=== PATIENT | male | born 1935 | race Caucasian/White ===

== ENCOUNTER 2020-10-17 08:04 | Day surgery (SDC) | payer MEDICARE, MEDICAID, SELFPAY ==
[2020-10-17] VITALS (10 sets, daily range): BP systolic 129–211; BP diastolic 73–100; PULSE 56–69; RESP 18–22; TEMP 36.5–37; O2SAT 95–99; BMI 29.8
--- NOTE | 2020-10-17 08:15 | XR_ITS ---
WS: [id number] Portable AP upright chest, 10/17/2020 Clinical Data: food stuck in esophagus Comparison: None. Findings: No nodules, masses or effusions are seen. The heart is normal. The pulmonary vascularity is not increased. No pneumonia or pneumothorax is seen. There is pleural reaction at the right costophr enic angle. The aortic arch and descending aorta show tortuosity. There is a calcification over the l eft greater tuberosity which may represent calcific bursitis and/or tendinitis. XR/XR chest 1V portable [id number] Impression: Atherosclerosis.
--- NOTE | 2020-10-17 08:17 | ED_ITS ---
Documented by User: HEIDI Lanza 10/17/20 13:53 HPI - General Adult General: Chief complaint: Airway/Esophagus Foreign Body Stated complaint: food stuck in throat Time Seen by Provider: 10/17/20 08:10 Source: patient Mode of arrival: ambulatory Limitations: no limitations History of Present Illness: HPI narrative: Pleasant 85-year-old male patient presents to the emergency department with food stuck in his esophagus. He reports that 4 AM this morning, ate hamburger and potatoes. He reports food stuck in the middle of his chest. He denies difficulty breathing, denies cough congestion. He reports did vomit small amount of spit. He reports similar episodes in the past with spontaneous resolution; did not seek medical attention. Primary care physician is Dr. Taylor. He denies fever chills cough congestion nausea or diarrhea upon exam. Onset (ago): hour(s) (4) Location: chest Radiation: non-radiation Severity: moderate Quality: dull Pain Consistency: constant Associated symptoms: Reports chest pain (with sensation of FB in esophagus ); Deny diaphoresis, dyspnea, headache(s), nausea, rash, palpitations or vomiting Treatments prior to arrival: other (drinking water) Review of Systems General: Reports: 10 or more systems reviewed and unremarkable except in HPI and below Const: Denies: fever(s), chills or diaphoresis Eyes: Denies: blurry vision or eye redness ENMT: Denies: throat pain, dental pain or disequilibrium Card: Reports: chest pain (with sensation of FB in esophagus ); Denies: palpitations, irregular heart rhythm, lightheadedness, dyspnea on exertion or acrocyanosis Resp: Denies: dyspnea, productive cough, non-productive cough, wheezing or chest congestion GI: Denies: abdominal pain, nausea, vomiting, dysphagia or heartburn : Denies: dysuria Musc: Denies: neck pain, back pain, joint swelling or joint stiffness Skin/Breast: Denies: rash or pruritus Neuro: Denies: headache(s), weakness in extremities or behavioral changes Psych: Reports: anxiety; Denies: depression or irritability Hesham/Lymph: Denies: easy bruising PFSH ED PFSH: Medical History No pertinent past medical history Family History Father Cancer Denies family history of Diabetes Social History Smoking and tobacco status: never smoked Household members: spouse Marital status: Current occupational status: retired Physical Exam Const: COMMON NORMALS: no acute distress, patient oriented x3, healthy appe aring and alert GENERAL APPEARANCE: cooperative, comfortable and well hydrated HENMT: COMMON NORMALS: normocephalic, atraumatic, Normal external nose present and moist oral mucous membranes HEAD & SCALP: normal to inspection, normocephalic and atraumatic; no Acrocyanosis present FACE & SINUS: normal facial exam, sinuses nontender and face symmetric; no ecchymosis, no erythema, no edema and no Acrocyanosis present NOSE: Normal external nose present MOUTH: Normal oral and palatal mucosa present, lip normal and tongue normal; no muffled voice TEETH & GINGIVA: Yes dentures THROAT: posterior oropharynx normal and uvula midline; uvula not laterally displaced Eye: COMMON NORMALS: Equal, round and reactive pupils present and EOMs intact bilaterally GENERAL EYE: appearance normal, both eyes and all related structures PUPIL: Yes Equal, round and reactive pupils present Neck/C-Spine: COMMON NORMALS: full ROM and no lymphadenopathy GENERAL: Yes normal visual inspection and Yes trachea midline CERVICAL SPINE: Yes cervical ROM normal Lymph: LYMPHATIC: no lymphadenopathy noted Chest: COMMONS NORMALS: normal inspection of the chest Resp: COMMON NORMALS: normal respiratory effort, No retractions, No use of accessory muscles and clear to auscultation bilaterally EFFORT & INSPECTION: Yes able to speak in complete sentences and No audible wheezes AUSCULTATION: clear to auscultation bilaterally and lung sounds not diminished Cardio: COMMON NORMALS: regular rhythm, S1 normal heart sound present, S2 normal heart sound present and Peripheral pulses 2+ throughout RHYTHM: regular rhythm HEART SOUNDS: S1 normal heart sound present and S2 normal heart sound present PERIPHERAL PULSES: Peripheral pulses 2+ throughout GI: COMMON NORMALS: Soft to palpation and non-tender INSPECTION: Yes normal to inspection PALPATION: Yes Soft to palpation : COMMON NORMALS: Yes no CVA tenderness BLADDER/KIDNEY EXAM: Yes no CVA tenderness Back/Pelvis: COMMON NORMALS: no CVA tenderness and thoracic and lumbar spine normal to inspection Extremity: COMMON NORMALS: normal to inspection and capillary refill normal Neuro: COMMON NORMALS: patient oriented x3 and no focal motor deficits SENSORIUM/ORIENTATION: Yes alert Psych: COMMON NORMALS: mental status grossly normal, Normal thought process present and cooperative ACTIVITY/MOTOR BEHAVIOR: Yes appropriate eye contact THOUGHT PROCESS: Normal thought process present Skin: COMMON NORMALS: no rashes or lesions noted and turgor normal GENERAL SKIN EXAM: no rashes or lesions noted and turgor normal Course ED course: 85-year-old male patient presents to the emergency department with foreign body, food product in the esophagus. Chest x-ray with atherosclerosis, no pneumonia or acute findings present. CBC with slight leukocytopenia, white blood count 3.3, chemistry unremarkable; 1 mg glucagon IV administered with marginal improvement of symptoms, was able to swallow water but could still feel food present in the esophagus. An additional 1 mg of glucagon IV administered. Medication was again not effective, case discussed with Dr. Shrestha; evaluation completed with referral to Dr. Powers for endoscopy/esophageal visualization for foreign body. Oxygen saturation remains 96 - 100% on room air, he continues to deny dyspnea or difficulty breathing. Vital Signs: Vital signs: Vital Signs Temperature 98.3 F 10/17/20 10:16 Pulse Rate 56 L 10/17/20 13:10 Respiratory Rate 18 10/17/20 13:10 Blood Pressure 160/86 10/17/20 13:10 Pulse Oximetry 97 10/17/20 13:10 [facility] - General Adult Lab Data: Labs: Lab Results 10/17/20 10/17/20 Range/Units 08:27 08:27 WBC 3.3 L (4.0-10.0) 10^3/ uL RBC 4.14 (4.1-5.3) 10^6/u L Hgb 13.0 (11.7-16.6) g/dL Hct 40.3 L (42.0-52.0) % MCV 97.3 H (80-94) fL MCH 31.4 (28.0-34.0) pg MCHC 32.3 (30.0-36.0) g/dL RDW 13.1 (12.1-15.1) % Plt Count 186 (130-400) 10^3/c mm MPV 10.5 H (7.4-10.4) fL Neut % (Auto) 54.9 % Lymph % (Auto) 31.8 % [place] % (Auto) 10.6 % Eos % (Auto) 1.5 % Baso % (Auto) 0.9 % Neut # (Auto) 1.81 (1.8-7.7) 10^3/u L Lymph # (Auto) 1.1 (0.8-4.8) 10^3/u L [place] # (Auto) 0.4 (0.2-0.9) 10^3/u L Eos # (Auto) 0.1 (0.0-0.8) 10^3/u L Baso # (Auto) 0.0 (0.0-0.1) 10^3/u L Nucleated RBC % (a uto) 0 % Nucleated RBCs # 0.0 /100WBC Sodium 135 L (136-145) mmol/L Potassium 3.9 (3.5-5.1) mmol/L Chloride 98 (98-107) mmol/L Carbon Dioxide 28 (22-29) mmol/L Anion Gap 12.9 (5-19) BUN 19 (8-23) mg/dL Creatinine 0.9 (0.7-1.2) mg/dL GFR Calculation Not Reportable Glucose 111 (65-115) mg/dL Calculated Osmolal ity 283 L (285-295) mOsm/k g Calcium 9.8 (8.5-10.5) mg/dL Total Bilirubin 0.5 (0.15-1.2) mg/dL AST 24 (0-40) U/L ALT 16 (0-41) U/L Alkaline Phosphata se 69 (40-130) IU/L Total Protein 7.9 (6.6-8.7) g/dL Albumin 4.6 (3.5-5.2) g/dL Globulin 3.3 (1.3-4.6) g/dL Discharge Plan Discharge Patient Disposition: Placed in Observation Clinical Impression: Esophageal foreign body Sign Out Sign Out Data: Patient Sign Out occurred on 10/17/20 at 11:12. Patient's care was discussed, and care was transferred from to Leland Shrestha DO. Coding Level of Care Code ED Superintendent [employer] for g Fwd Exam Comprehensive Documented by User: Leland Shrestha DO 10/17/20 11:17 HPI - General Adult General: Chief complaint: Airway/Esophagus Foreign Body Stated complaint: food stuck in throat Time Seen by Provider: 10/17/20 08:10 History of Present Illness: HPI narrative: Got up around 4:00's morning was eating a hamburger and some fried potatoes had difficult time swallowing it feels like something stuck in been in place several hours before he came in to see Dr. Taylor who referred him here he does able to manage his own secretions at this point. Onset (ago): hour(s) Radiation: non-radiation Severity: mild Quality: aching Pain Consistency: constant Relieving factors: none Exacerbating factors: none Associated symptoms: Reports chest pain; Deny confusion, cough, diaphoresis, decreased appetite, dyspnea, fevers/chills, headache(s), malaise, nausea, rash, palpitations, seizures, short of breath, syncope, vomiting or weakness Treatments prior to arrival: none Review of Systems Const: Denies: malaise or diaphoresis ENMT: Denies: throat pain, ear or mastoid pain, nasal discharge or nasal congestion Card: Reports: chest pain; Denies: palpitations or syncope Resp: Denies: dyspnea GI: Denies: nausea or vomiting : Denies: flank pain, dysuria, urinary frequency or urinary urgency Skin/Breast: Denies: rash Neuro: Denies: headache(s) or confusion PFSH ED PFSH: Medical History No pertinent past medical history Family History Father Cancer Denies family history of Diabetes Social History Smoking and tobacco status: never smoked Household members: spouse Marital status: Current occupational status: retired Physical Exam Const: ORIENTATION/CONSCIOUSNESS: Yes oriented to person, Yes oriented to place and Yes oriented to time HENMT: COMMON NORMALS: normocephalic, atraumatic and hearing grossly normal bilaterally HEAD & SCALP: normocephalic and atraumatic Neck/C-Spine: COMMON NORMALS: no JVD Resp: COMMON NORMALS: normal respiratory effort, No retractions, No use of accessory muscles and clear to auscultation bilaterally AUSCULTATION: clear to auscultation bilaterally Cardio: COMMON NORMALS: no JVD, regular rate, regular rhythm and No murmurs present (Cardio) RATE: regular rate RHYTHM: regular rhythm GI: COMMON NORMALS: Soft to palpation and No hepatosplenomegaly present AUSCULTATION: Yes normoactive bowel sounds PALPATION: Yes Soft to palpation, No Tenderness to palpation present (GI), No Guarding due to palpation present (GI) and Yes No hepatosplenomegaly present Extremity: COMMON NORMALS: normal to inspection, capillary refill normal, no clubbing, cyanosis or edema, no calf tenderness and no pedal edema Neuro: SENSORIUM/ORIENTATION: Yes oriented to person, Yes oriented to place and Yes oriented to time Skin: COMMON NORMALS: no rashes or lesions noted GENERAL SKIN EXAM: no rashes or lesions noted Course Vital Signs: Vital signs: Vital Signs Temperature 98.3 F 10/17/20 10:16 Pulse Rate 56 L 10/17/20 13:10 Respiratory Rate 18 10/17/20 13:10 Blood Pressure 160/86 10/17/20 13:10 Pulse Oximetry 97 10/17/20 13:10 MDM - General Adult MDM Narrative: Medical decision making narrative: Discussed with Dr. Powers. He will accept the patient to do an EGD. Nurse practitioner initially seen the patient several attempts were made with glucagon to try to get the patient to pass the food bolus. Transfer to outpatient surgery Lab Data: Labs: Lab Results 10/17/20 10/17/20 Range/Units 08:27 08:27 WBC 3.3 L (4.0-10.0) 10^3/ uL RBC 4.14 (4.1-5.3) 10^6/u L Hgb 13.0 (11.7-16.6) g/dL Hct 40.3 L (42.0-52.0) % MCV 97.3 H (80-94) fL MCH 31.4 (28.0-34.0) pg MCHC 32.3 (30.0-36.0) g/dL RDW 13.1 (12.1-15.1) % Plt Count 186 (130-400) 10^3/c mm MPV 10.5 H (7.4-10.4) fL Neut % (Auto) 54.9 % Lymph % (Auto) 31.8 % [place]hin % (Auto) 10.6 % Eos % (Auto) 1.5 % Baso % (Auto) 0.9 % Neut # (Auto) 1.81 (1.8-7.7) 10^3/u L Lymph # (Auto) 1.1 (0.8-4.8) 10^3/u L [place] # (Auto) 0.4 (0.2-0.9) 10^3/u L Eos # (Auto) 0.1 (0.0-0.8) 10^3/u L Baso # (Auto) 0.0 (0.0-0.1) 10^3/u L Nucleated RBC % (a uto) 0 % Nucleated RBCs # 0.0 /100WBC Sodium 135 L (136-145) mmol/L Potassium 3.9 (3.5-5.1) mmol/L Chloride 98 (98-107) mmol/L Carbon Dioxide 28 (22-29) mmol/L Anion Gap 12.9 (5-19) BUN 19 (8-23) mg/dL Creatinine 0.9 (0.7-1.2) mg/dL GFR Calculation Not Reportable Glucose 111 (65-115) mg/dL Calculated Osmolal ity 283 L (285-295) mOsm/k g Calcium 9.8 (8.5-10.5) mg/dL Total Bilirubin 0.5 (0.15-1.2) mg/dL AST 24 (0-40) U/L ALT 16 (0-41) U/L Alkaline Phosphata se 69 (40-130) IU/L Total Protein 7.9 (6.6-8.7) g/dL Albumin 4.6 (3.5-5.2) g/dL Globulin 3.3 (1.3-4.6) g/dL Discharge Plan Discharge Patient Disposition: Placed in Observation Clinical Impression: Esophageal foreign body Sign Out Sign Out Data: Patient Sign Out occurred on 10/17/20 at 11:12. Patient's care was discussed, and care was transferred from to Leland Shrestha DO. Coding Level of Care Code ED Superintendent Drilling [employer] for Chg Fwd Exam Comprehensive
[2020-10-17 08:34] LABS: Basophils % 0.9 %; Eosinophils # 0.1 10^3/uL (0.0-0.8); Eosinophils % 1.5 %; Hematocrit 40.3 % (42.0-52.0); Lymphocytes # 1.1 10^3/uL (0.8-4.8); Lymphocytes % 31.8 %; Mean Corpuscular HGB Conc 32.3 g/dL (30.0-36.0); Mean Corpuscular Hemoglobin 31.4 pg (28.0-34.0); Mean Corpuscular Volume 97.3 fL (80-94); Mean Platelet Volume 10.5 fL (7.4-10.4); Monocytes # 0.4 10^3/uL (0.2-0.9); Monocytes % 10.6 %; Neutrophils # 1.81 10^3/uL (1.8-7.7); Neutrophils % 54.9 %; Nucleated Red Blood Cells % 0 %; Platelet Count 186 10^3/cmm (130-400); Red Blood Count 4.14 10^6/uL (4.1-5.3); Red Cell Distribution Width 13.1 % (12.1-15.1); White Blood Count 3.3 10^3/uL (4.0-10.0)
[2020-10-17 08:50] LABS: Alanine Aminotransferase 16 U/L (0-41); Albumin Level 4.6 g/dL (3.5-5.2); Alkaline Phosphatase 69 IU/L (40-130); Anion Gap 12.9 (5-19); Aspartate Amino Transferase 24 U/L (0-40); Blood Urea Nitrogen 19 mg/dL (8-23); Calcium 9.8 mg/dL (8.5-10.5); Carbon Dioxide 28 mmol/L (22-29); Chloride 98 mmol/L (98-107); Globulin 3.3 g/dL (1.3-4.6); Glucose 111 mg/dL (65-115); Osmolality Calculated 283 mOsm/kg (285-295); Potassium 3.9 mmol/L (3.5-5.1); Sodium 135 mmol/L (136-145); Total Bilirubin 0.5 mg/dL (0.15-1.2); Total Protein 7.9 g/dL (6.6-8.7)
--- NOTE | 2020-10-17 13:48 | P.ANESASSM_ITS ---
Pre-Anesthetic Assessment Pre-Anesthetic Assessment: Height/Weight: Height 1.57 m Weight 73.936 kg Temp Pulse Resp BP Pulse Ox 98.3 F 56 L 18 160/86 97 10/17/20 10:16 10/17/20 13:10 10/17/20 13:10 10/17/20 13:10 10/17/20 13:10 Proposed Procedure: Operation Date: 10/17/20 15:00 Proposed Procedures p EGD(Not Applicable) - Martin Powers MD Was Beta Jennifer taken within 24 hours: N/A Last intake: Intake Last Liquid Date 10/17/20 Last Liquid Time 04:30 Last Solid Date 10/17/20 Last Solid Time 04:30 Social: Social History: No alcohol and No tobacco Exam: Pre-Anes Outpt Exam: alert, oriented x 3, clear to auscultation bilaterally and regular rate & rhythm Airway: Submandibular: WNL Cervical ROM: WNL MP: 2 Dentition: False Pulmonary: Pulmonary: COPD CV/HEM: CV/HEM: HTN GI: Comments: Food bolus esophagus Anesthetic Plan: ASA status: 3E Anesthesia: General Risk of > 500 ml blood loss (7ml/kg in children): No PFSH Anesthesia PFSH: Medical History No pertinent past medical history Family History Father Cancer Denies family history of Diabetes Social History Smoking and tobacco status: never smoked Household members: spouse Marital status: Current occupational status: retired Data Anesthesia CBC & Chem 7: 10/17/20 08:27 10/17/20 08:27 Other Labs: Laboratory Results - last 48 hr 10/17/20 10/17/20 08:27 08:27 WBC 3.3 L RBC 4.14 Hgb 13.0 Hct 40.3 L MCV 97.3 H MCH 31.4 MCHC 32.3 RDW 13.1 Plt Count 186 MPV 10.5 H Neut % (Auto) 54.9 Lymph % (Auto) 31.8 [place] % (Auto) 10.6 Eos % (Auto) 1.5 Baso % (Auto) 0.9 Neut # (Auto) 1.81 Lymph # (Auto) 1.1 [place] # (Auto) 0.4 Eos # (Auto) 0.1 Baso # (Auto) 0.0 Nucleated RBC % (auto) 0 Nucleated RBCs # 0.0 Sodium 135 L Potassium 3.9 Chloride 98 Carbon Dioxide 28 Anion Gap 12.9 BUN 19 Creatinine 0.9 GFR Calculation Not Reportable Glucose 111 Calculated Osmolality 283 L Calcium 9.8 Total Bilirubin 0.5 AST 24 ALT 16 Alkaline Phosphatase 69 Total Protein 7.9 Albumin 4.6 Globulin 3.3 Cardiac Studies: No Data to Display
[2020-10-17] MEDS: sodium chloride 0.9% 1,000 ML 30 ML IV (13:49)
--- NOTE | 2020-10-17 15:11 | SUR.PHASEI ---
1500 PT AWAKE ALERT TAKING SIPS OF JUICE , PT DENIES PAIN, REMAINS VERY ALERT AND TALKATIVE, PT WATCHING TV AND ASKING QUESTIONS PT CARE TO OPS NURSE SHERI BOOTH.
--- NOTE | 2020-10-17 16:12 | ANE.PACU2 ---
Inpatient post-anesthesia follow up: Airway intact: Yes Vital signs: Temperature 98.0 F Pulse Rate [Monito r] 69 Pulse Rate 58 Respiratory Rate 20 Blood Pressure [Ri ght Arm] 211/97 Blood Pressure 158/90 Pulse Oximetry 96 Oxygen Delivery Me thod Room Air Oxygen Flow Rate 8 Fraction of Inspir ed Oxygen Hydration adequate: Yes Nausea and vomiting: No Pain level: 1 Mental status: Baseline
--- NOTE | 2020-10-17 18:24 | P.HP_ITS ---
Providers/Chief Complaint Primary Care Provider: Kanu Taylor MD Chief Complaint: food stuck in throat History of Present Illness Gualberto Guzmán is a 85 year old male who presented to the ER with food stuck in his throat. Patient states that he woke up around 4 AM this morning to have his hamburger and potatoes and subsequently felt like food getting stuck in his mid chest. Patient denies any chest pain or abdominal pain, no nausea vomiting or hematemesis. No similar episodes in the past. Patient occasionally takes Tums for heartburn. Review of Systems General: Reports: 10 or more systems reviewed and unremarkable except in HPI and below Medications/Allergies Home Medications Medication Instructions Recorded Confirmed Last Taken Type pantoprazole [Protonix] 40 mg PO BID 42 Days #84 tab 10/17/20 Unknown Rx sucralfate [Carafate] 1 gm PO Q6H 28 Days #112 tab 10/17/20 Unknown Rx Allergies Allergy/AdvReac Type Severity Reaction Status Date / Time No Known Allergies Allergy Verified 09/30/20 08:33 PFSH Acute PFSH: Medical History (Updated 10/17/20 @ 18:26 by Martin Powers MD) No pertinent past medical history Surgical History (Updated 10/17/20 @ 15:20 by Martin Powers MD) H/O esophagogastroduodenoscopy (10/17/20) Family History Father Cancer Denies family history of Diabetes Social History Smoking and tobacco status: never smoked Household members: spouse Marital status: Current occupational status: retired Vitals/I&O/Wt Last Vital Signs Temp 98.0 F 10/17/20 15:15 Pulse 58 L 10/17/20 15:15 Resp 20 H 10/17/20 15:15 BP 158/90 10/17/20 15:15 Pulse Ox 96 10/17/20 15:15 10/17/20 10/17/20 10/17/20 06:59 14:59 22:59 Intake Total 0 / 500 500 / 500 Output Total 5 / 5 Balance -5 / 495 500 / 495 Weight last 48 hrs Weight 163 lb Physical Exam Narrative: EXAM NARRATIVE: HEENT: Normocephalic Eye: Sclera /conjunctiva normal Cardiovascular: Normal S1 and S2 heart sounds Abdomen: Soft to palpation Neurological: Oriented to place person and time Skin: Intact, no lesions appreciated on gross exam Data : 10/17/20 08:27 10/17/20 08:27 A&P Assessment and plan (1) Esophageal foreign body: 84-year-old gentleman with esophageal obstruction due to food impaction. Patient is currently hemodynamically stable Plan for EGD with disimpaction of food bolus Procedure, risks, benefits and alternatives have been discussed with the patient who wishes to proceed with surgery. Status: Resolved Attestations Medical Necessity Statement*: Esophageal obstruction due to food impaction Coding Level of Care Code Acute Agricultural Engineering Teacher for [facility] Fw Diagnoses Esophageal foreign body T18.108A
== END 2020-10-17 16:01 | disposition home or self-care (01) ==
LOC: ER 13:01 → OR 13:01
PROVIDERS: Nurse Practitioner Family; Emergency Provider Family Medicine; PCP Family Medicine; Visit Provider Surgery
PROC: 0DJ08ZZ Inspection of Upper Intestinal Tract, Via Natural or Artificial Opening Endoscopic (ICD-10-PCS; CPT 43235; principal; 2020-10-17 15:00)
DX: T18.108A Unspecified foreign body in esophagus causing other injury, initial encounter (principal); K20.90 Esophagitis, unspecified without bleeding; K22.2 Esophageal obstruction; K29.70 Gastritis, unspecified, without bleeding; J44.9 Chronic obstructive pulmonary disease, unspecified; I10 Essential (primary) hypertension
CPT/HCPCS: 12345; 43247; 71045; 80053; 85025; 88305; 99282; J0330; J1610; J7030

== ENCOUNTER 2020-12-25 18:40 | Emergency (ER) | payer MEDICARE, OTHER, SELFPAY ==
[2020-12-25 18:40] VITALS: BP 178/88; PULSE 60; RESP 14; TEMP 36.3; O2SAT 98; BMI 29.2
--- NOTE | 2020-12-25 18:41 | XRR_ITS ---
PROCEDURE INFORMATION: Exam: XR Left Shoulder Exam date and time: 12/25/2020 6:50 PM Age: 85 years old Clinical indication: Pain; Shoulder; Left; Prior surgery; Surgery date: 6+ months; Additional info: Fall, left shoulder pain TECHNIQUE: Imaging protocol: XR Left shoulder. Views: 2 or more views. COMPARISON: No relevant prior studies available. FINDINGS: Bones/joints: No acute displaced fracture or dislocation. 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 Soft tissues: Normal. XR/XR shoulder LT min 2V* [id number] IMPRESSION: No acute displaced fracture or dislocation.
--- NOTE | 2020-12-25 18:59 | W.ED.FALL ---
HPI - Fall General: Chief Complaint: Fall Stated Complaint: FALL/LEFT SHOULDER PAIN Time Seen by Provider: 12/25/20 18:41 Source: patient Mode of arrival: ambulatory Limitations: no limitations History of Present Illness: HPI Narrative: 85-year-old male patient presents to the emergency department with left shoulder pain. He reports slipped on a step and hit his left shoulder on a step. He denies hitting his head, denies neck pain, loss of consciousness or other injuries. He reports not able to move his left arm without severe pain to the left shoulder. MD complaint: fall Onset (ago): hour(s) (1-2) Fall from: standing and down stairs (#) (1) Fall witnessed: no Place fall occurred: home Loss of consciousness: None Prolonged down time: no Symptoms prior to fall: none Context: tripped/slipped Location of injury - extremities: Left: shoulder Severity: moderate Associated symptoms-after fall: Reports no associated symptoms; Denies abdominal pain, chest pain, headache(s) or neck pain Review of Systems General: Reports: 10 or more systems reviewed and unremarkable except in HPI and below Const: Denies: fever(s), chills or diaphoresis Eyes: Denies: blurry vision or eye redness ENMT: Denies: throat pain, dental pain or disequilibrium Card: Denies: chest pain, palpitations or irregular heart rhythm Resp: Denies: dyspnea, productive cough, non-productive cough or wheezing GI: Denies: abdominal pain, nausea or vomiting : Denies: dysuria Musc: Reports: joint pain (left shoulder); Denies: neck pain or back pain Skin/Breast: Denies: rash, pruritus, erythema, skin tenderness or changes in skin color Neuro: Denies: headache(s), weakness in extremities or behavioral changes Psych: Denies: anxiety, depression, change in appetite or difficulty concentrating Hesham/Lymph: Denies: easy bruising PFSH ED PFSH: Medical History Esophagitis No pertinent past medical history Surgical History H/O esophagogastroduodenoscopy (10/17/20) History of colonoscopy (~2014) Family History Father Cancer Denies family history of Diabetes Social History Smoking and tobacco status: never smoked Household members: spouse Marital status: Current occupational status: retired Physical Exam Const: COMMON NORMALS: no acute distress, patient oriented x3, healthy appearing and alert GENERAL APPEARANCE: cooperative, comfortable and well hydrated HENMT: COMMON NORMALS: normocephalic, Normal external nose present and moist oral mucous membranes HEAD & SCALP: normocephalic NOSE: Normal external nose present Eye: COMMON NORMALS: Equal, round and reactive pupils present and EOMs intact bilaterally GENERAL EYE: appearance normal, both eyes and all related structures PUPIL: Yes Equal, round and reactive pupils present Neck/C-Spine: COMMON NORMALS: full ROM and no lymphadenopathy GENERAL: Yes normal visual inspection and Yes trachea midline CERVICAL SPINE: Yes cervical ROM normal, No pain with cervical ROM, No Cervical spine tenderness, No Paracervical muscle tenderness, No Paracervical spasm and No Trapezius muscle tenderness Lymph: LYMPHATIC: no lymphadenopathy noted Chest: COMMONS NORMALS: normal inspection of the chest and normal palpation of entire chest wall Resp: COMMON NORMALS: normal respiratory effort, No retractions, No use of accessory muscles and clear to auscultation bilaterally EFFORT & INSPECTION: Yes able to speak in complete sentences AUSCULTATION: clear to auscultation bilaterally Cardio: COMMON NORMALS: regular rhythm, S1 normal heart sound present, S2 normal heart sound present and Peripheral pulses 2+ throughout RHYTHM: regular rhythm HEART SOUNDS: S1 normal heart sound present and S2 normal heart sound present PERIPHERAL PULSES: Peripheral pulses 2+ throughout GI: COMMON NORMALS: Normal to inspection, nondistended, normoactive bowel sounds present, Soft to palpation and non-tender INSPECTION: Yes normal to inspection PALPATION: Yes Soft to palpation : COMMON NORMALS: Yes no CVA tenderness BLADDER/KIDNEY EXAM: Yes no CVA tenderness Back/Pelvis: COMMON NORMALS: no CVA tenderness and thoracic and lumbar spine normal to inspection Extremity: COMMON NORMALS: normal to inspection, capillary refill normal, no clubbing, cyanosis or edema and no pedal edema GENERAL: Yes normal exam except as noted LEFT UPPER EXTREMITY: Yes shoulder joint Left shoulder joint: Yes inspection (mild deformity anteriorly noted), Yes palpation (pain to the left anterior a/c and distal clavicle), Yes ROM (pain with ROM) and Yes neurovascular exam (distally intact) OTHER: Left humerus, left wrist left forearm and left hand without tenderness upon palpation. He was able to flex extend left wrist and digits to the left hand. Pain reproduced to the left shoulder with pronation and supination. Not able to abduct arm, left upper extremity due to reproduction of pain to the left shoulder. Suspect questionable dislocation. Neuro: COMMON NORMALS: patient oriented x3 and no focal motor deficits SENSORIUM/ORIENTATION: Yes alert Psych: COMMON NORMALS: mental status grossly normal, Normal thought process present and cooperative ACTIVITY/MOTOR BEHAVIOR: Yes appropriate eye contact THOUGHT PROCESS: Normal thought process present Skin: COMMON NORMALS: no rashes or lesions noted and turgor normal GENERAL SKIN EXAM: no rashes or lesions noted and turgor normal Course Vital Signs: Vital signs: Vital Signs Temperature 97.3 F L 12/25/20 18:40 Pulse Rate 56 L 12/25/20 19:47 Respiratory Rate 18 12/25/20 19:47 Blood Pressure 151/84 12/25/20 19:47 Pulse Oximetry 98 12/25/20 19:47 MDM - Fall Imaging Data^: Other Xray: Radiologist's impression: [facility] [place] [address] XRay Report Signed Patient: Gualberto Guzmán Unit #: [id number] : 1935 Age/Sex: 85 / M ADM Date: 12/25/20 Loc: ER Room/Bed: Attending Dr: Ordering Provider/Ordering MD: Karen Schaefer Date of Service: 12/25/20 Procedure(s): XR shoulder LT min 2V* [id number] Accession Number(s): [id number] Report Number: [id number] PROCEDURE INFORMATION: Exam: XR Left Shoulder Exam date and time: 12/25/2020 6:50 PM Age: 85 years old Clinical indication: Pain; Shoulder; Left; Prior surgery; Surgery date: 6+ months; Additional info: Fall, left shoulder pain TECHNIQUE: Imaging protocol: XR Left shoulder. Views: 2 or more views. COMPARISON: No relevant prior studies available. FINDINGS: Bones/joints: No acute displaced fracture or dislocation. 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 Soft tissues: Normal. XR/XR shoulder LT min 2V* [id number] IMPRESSION: No acute displaced fracture or dislocation. Dictated By: Gennaro Tejeda Signed By: Gennaro Tejeda Signed Date/Time: 12/25/201922 DD/ 20 Discharge Plan Discharge Patient Disposition: Home Clinical Impression: Fall against object Contusion of left shoulder Qualifiers: Encounter type: initial encounter Qualified Code(s): S40.012A - Contusion of left shoulder, initial encounter Condition: Stable Prescriptions: No Action Protonix 40 mg tablet,delayed release (DR/EC) 40 mg PO BID 42 Days Qty: 84 RF: 3 Discharge Orders: Discharge ED (Routine); Ordered 12/25/20 Ordered By: Karen Schaefer Referrals: Kanu Taylor MD [Primary Care Provider] - Discharge Diet: Usual diet Discharge Activity: Limit activity as instructed Patient Instructions: Contusion in Adults (ED), Opioid Safety, Shoulder, Sling - Wearing Activity Restrictions/Additional Instructions: Take Tylenol as directed on bottle as needed for pain Follow-up with your primary care provider, Dr. Taylor in 2 to 3 days if not improved Wear arm sling as needed for pain Complete small range of motion exercises several times daily to help strengthen the shoulder Cool compresses to the shoulder several times daily to help with pain Coding Level of Care Code ED Blasting Worker for Bebe Fwd Exam Comprehensive
[2020-12-25] MEDS: acetaminophen 325 mg Tablet 650 MG PO (19:39)
[2020-12-25 19:47] VITALS: BP 151/84; PULSE 56; RESP 18; O2SAT 98
== END 2020-12-25 19:45 | disposition home or self-care (01) ==
PROVIDERS: Emergency Provider Nurse Practitioner Family; PCP Family Medicine
DX: S40.012A Contusion of left shoulder, initial encounter (principal); W01.0XXA Fall on same level from slipping, tripping and stumbling without subsequent striking against object, initial encounter
CPT/HCPCS: 73030; 99283

== ENCOUNTER → 2021-01-16 13:17 | Outpatient (BNVA) | payer MEDICARE, OTHER, SELFPAY | PROVIDERS: PCP Family Medicine; Referring Provider Nurse Practitioner; Visit Provider Podiatrist Foot & Ankle Surgery | DX: M79.672 Pain in left foot (principal) | CPT/HCPCS: 73630 ==

== ENCOUNTER → 2021-01-23 10:13 | Outpatient (BNVA) | payer MEDICARE, OTHER, SELFPAY | PROVIDERS: PCP Family Medicine; Visit Provider Podiatrist Foot & Ankle Surgery | DX: M79.672 Pain in left foot (principal); S90.851A Superficial foreign body, right foot, initial encounter | CPT/HCPCS: 73630 ==

== ENCOUNTER 2021-03-11 08:42 | Outpatient (CLI) | payer MEDICARE, OTHER, SELFPAY ==
--- NOTE | 2021-03-11 08:45 | MR_ITS ---
WS: [id number] MRI LEFT KNEE HISTORY: Proximal LEFT femur fracture. COMPARISON: 02/13/2021 Anterior cruciate ligament: Thickening and increased signal in the proximal ACL consistent with a par tial tear. Posterior cruciate ligament: Mild buckling of the PCL but it is intact. Medial collateral ligament: Increased signal on both sides of the MCL. MCL is being displaced by an e xtruded meniscus and edema. Posterior lateral corner structures: Intact. Medial menisci: Small caliber anterior and posterior horns with abnormal signal consistent with tears and extrusion from the joint space. Lateral meniscus: Anterior horn is intact. Blunting of the free edge posterior horn with irregularity along the superior and inferior articular surfaces. Extensor mechanism: Distal quadriceps tendon and patellar tendons are intact. Fluid and soft tissue: Moderate suprapatellar joint effusion. There is soft tissue edema surrounding the knee and in the anterior soft tissue. Small Galloway's cyst. There is also mild distention of the po pliteus bursa. Osseous and articular structures: Patellofemoral compartment: Mild thinning of the cartilage and mild joint space narrowing. No marrow edema. Medial compartment: Severe narrowing of the medial compartment with complete loss of cartilage. Osteo chondral defect along the weightbearing surface of the femoral condyle measures 10 x 9 mm. Additional subchondral defect along the medial tibial plateau with a maximum diameter of 9 mm. Moderate amount of edema in the medial femoral condyle and the medial tibial plateau. Tibial plateau edema extends ac ross the midline. No definite fracture is identified by MRI but there is a significant amount of bernice a consistent with the recent trauma and small microfractures. Lateral compartment: Mild narrowing of the lateral compartment. Thinning of the cartilage. MR/MR knee LT wo con* [id number] IMPRESSION: 1. Moderate amount of marrow edema in the medial femoral condyle and medial ti bial plateau consistent with microfractures and reactive marrow edema. No displ aced fracture identified. 2. Osteochondral defects involving the weightbearing surface of the medial fem oral condyle and medial tibial plateau. 3. Complete loss of cartilage in the medial joint space with meniscal extrusio n and mild MCL sprain. Anterior and posterior horns of the medial menisci are t orn. 4. Blunting posterior horn free edge of the lateral meniscus. 5. Suprapatellar joint effusion with Galloway's cyst and bursitis in the popliteu s tendon. 6. Partial tear proximal ACL.
== END 2021-03-11 08:43 | disposition home or self-care (01) ==
PROVIDERS: PCP Family Medicine; Visit Provider Family Medicine
DX: S72.8X2A Other fracture of left femur, initial encounter for closed fracture; S83.512A Sprain of anterior cruciate ligament of left knee, initial encounter; M25.462 Effusion, left knee; M71.22 Synovial cyst of popliteal space [Baker], left knee; M71.562 Other bursitis, not elsewhere classified, left knee; R60.0 Localized edema; X58.XXXA Exposure to other specified factors, initial encounter
CPT/HCPCS: 73721

== ENCOUNTER 2021-08-04 09:16 | Emergency (ER) | payer MEDICARE, MEDICAID, SELFPAY ==
[2021-08-04 09:31] VITALS: BP 189/89; PULSE 61; RESP 18; TEMP 36.8; O2SAT 99; BMI 25.4
[2021-08-04 09:43] VITALS: BP 189/89; PULSE 61; RESP 16; O2SAT 99
--- NOTE | 2021-08-04 09:47 | W.ED.WOUNDLC ---
HPI - Wound/Laceration General: Chief Complaint: Wound/Laceration Stated Complaint: RIGHT HAND INJURY FROM PIECE OF METAL Time Seen by Provider: 08/04/21 09:31 History of Present Illness: HPI narrative: Patient presents with a clean metal cut to his right forearm. laceration occurred on Tuesday. Onset (ago): day(s) Extremity Location: Right: forearm Place: home Patient tetanus UTD: No Context: accidental Associated symptoms: Reports no associated symptoms; Denies chills or fever(s) Review of Systems Const: Denies: fever(s) or chills Skin/Breast: Reports: other (Laceration right forearm no active bleeding.) Psych: Denies: anxiety or depression PFSH ED PFSH: Medical History Esophagitis No pertinent past medical history Surgical History H/O esophagogastroduodenoscopy (10/17/20) History of colonoscopy (~2014) Family History Father Cancer Denies family history of Diabetes Social History Household members: spouse Marital status: Current occupational status: retired Physical Exam Const: COMMON NORMALS: no acute distress GENERAL APPEARANCE: cooperative Extremity: OTHER: Patient has full range of motion to the right upper extremity distal neurovascular intact laceration superficial and clean. Laceration was closed with Steri-Strips and dressing. Skin: OTHER: Irregular laceration to right wrist medial aspect distal. Procedures Laceration Laceration 1: Site: upper extremity Side (If applicable): right Size (cm): 5.5 Description: linear, irregular and clean Depth: simple, single layer Skin layer closed with: other (Steri-Strips) Course Vital Signs: Vital signs: Vital Signs Temperature 98.2 F 08/04/21 09:31 Pulse Rate 61 08/04/21 09:43 Respiratory Rate 16 08/04/21 09:43 Blood Pressure 189/89 08/04/21 09:43 Pulse Oximetry 99 08/04/21 09:43 Discharge Plan Discharge Prescriptions: No Action povidone-iodine [Betadine Swabsticks] 10 % swab 1 applic topical ONCE Qty: 1 RF: 0 bacitracin 500 unit/gram packet 1 applic topical ONCE Qty: 1 RF: 0 Protonix 40 mg tablet,delayed release (DR/EC) 40 mg PO BID 42 Days Qty: 84 RF: 3 Coding Level of Care Code ED Plastics Repairer for Bebe Pike
[2021-08-04] MEDS: tetanus-dipt-pertussis 0.5 mL SDV IM (09:50)
== END 2021-08-04 10:04 | disposition home or self-care (01) ==
PROVIDERS: Emergency Provider Nurse Practitioner Family; PCP Family Medicine
DX: S61.411A Laceration without foreign body of right hand, initial encounter (principal); W26.8XXA Contact with other sharp object(s), not elsewhere classified, initial encounter; Y92.019 Unspecified place in single-family (private) house as the place of occurrence of the external cause
CPT/HCPCS: 12002; 90471; 90715; 99282

== ENCOUNTER → 2022-03-17 07:34 | Outpatient (BNVA) | payer MEDICARE, MEDICAID, SELFPAY | PROVIDERS: PCP Family Medicine; Referring Provider Family Medicine; Visit Provider Orthopaedic Surgery | DX: M25.551 Pain in right hip (principal) | CPT/HCPCS: 99203 ==

== ENCOUNTER → 2022-03-19 07:56 | Outpatient (BNVA) | payer MEDICARE, MEDICAID, SELFPAY | PROVIDERS: PCP Family Medicine; Visit Provider Orthopaedic Surgery | DX: R20.0 Anesthesia of skin (principal); M79.641 Pain in right hand; M79.642 Pain in left hand | CPT/HCPCS: 99213 ==

== ENCOUNTER → 2022-04-29 08:40 | Outpatient (BNVA) | payer MEDICARE, MEDICAID, SELFPAY | PROVIDERS: PCP Family Medicine; Referring Provider Orthopaedic Surgery; Visit Provider Specialist | DX: G56.03 Carpal tunnel syndrome, bilateral upper limbs (principal); G56.23 Lesion of ulnar nerve, bilateral upper limbs | CPT/HCPCS: 95910; 95913 ==

== ENCOUNTER 2022-07-14 10:47 | Emergency (ER) | payer MEDICARE, MEDICAID, SELFPAY ==
--- NOTE | 2022-07-14 10:58 | CT_ITS ---
WS: [id number] CT HEAD NONCONTRAST HISTORY: fall TECHNIQUE: Contiguous axial imaging performed through the brain in 2.5 mm imaging. Bone and soft tiss ue windows. Sagittal and coronal reformats reviewed. All CT scans at [facility] use at least one of these dose optimization techniques: automated exposure control; mA and/or kV adjustment per pa tient size (includes targeted exams where dose is matched to clinical indication); or iterative recon struction. DLP: 1806.55 mGy.cm COMPARISON: None available. No acute intracranial hemorrhage, midline shift or mass effect. Moderate atrophy and advanced small vessel ischemic disease. No focal area of sulcal effacement. Mode rate bilateral cerebellar atrophy. Ventricles: Ventricles and extra-axial spaces are mildly prominent on the basis of atrophy. No inferior displacement of cerebellar tonsils. Extensive calcification in the distal vertebral arter ies and also through the distal intracranial carotid arteries. Paranasal sinuses: As visualized are clear. Mastoid air cells: Well pneumatized. Calvarium and scalp: No skull fracture. Focal soft tissue hematoma over the lateral RIGHT orbit. CT/CT head wo con* [id number] IMPRESSION: 1. No acute intracranial hemorrhage or edema. 2. Atrophy and advanced small vessel ischemic disease. 3. Focal soft tissue hematoma over the lateral RIGHT orbit. Facial bone CT to follow.
--- NOTE | 2022-07-14 10:58 | CT_ITS ---
WS: [id number] CT FACIAL BONES HISTORY: fall TECHNIQUE: Images obtained from the supraorbital location through the mandible. Soft tissue and bone windows are reviewed. Coronal and sagittal reformats have also been submitted. DLP: 1806.[address] scans at [facility] use at least one of these dose optimization techniques: automated e xposure control; mA and/or kV adjustment per patient size (includes targeted exams where dose is matc hed to clinical indication); or iterative reconstruction. COMPARISON: None available. Very mild compression of the distal RIGHT nasal bone. Indeterminate for acute fracture. Not significa ntly displaced. Zygomatic arches are symmetric bilaterally. There is a lucency through the RIGHT zygo matic arch. No adjacent soft tissue edema. No maxillary sinus fracture. Sargent of the orbits and sinus es are intact. There are small polyps or mucous retention cysts in the maxillary sinuses. Deviation o f the nasal septum to the RIGHT. Small soft tissue hematoma centered over the RIGHT lateral orbit. Advanced degenerative disc space narrowing at C3-4. C4 retrolisthesis by 4 mm. No acute fracture line is identified. There is very slight anterior wedging of C4. Lateral masses of C1 and C2 are aligned. CT/CT facial bones wo con* [id number] IMPRESSION: 1. No acute facial bone fractures are identified. 2. Indeterminate for distal RIGHT nasal bone fracture which is nondisplaced. 3. Tissue hematoma centered over the RIGHT lateral orbit. 4. C4 retrolisthesis by 4 mm and degenerative changes in the upper cervical sp ine. No acute fractures are identified.
[2022-07-14 10:59] VITALS: BP 159/64; PULSE 59; RESP 18; TEMP 36.6; O2SAT 97; BMI 27.8
--- NOTE | 2022-07-14 11:50 | W.ED.WOUNDLC ---
HPI - Wound/Laceration General: Chief Complaint: Wound/Laceration Stated Complaint: Fall with head LAC Time Seen by Provider: 07/14/22 11:49 History of Present Illness: Patient is an 87-year-old male who comes to the ED with fall. Patient says fall occurred this morning. He tripped over his shoes and fell and hit his head. Denies any loss of consciousness and patient is not on any blood thinners. He has a laceration on his right eyebrow. Patient is up-to-date on his tetanus. Associated symptoms: Denies chills, fever(s), nausea or vomiting Review of Systems Const: Denies: fever(s), chills or fatigue Eyes: Denies: change in vision or eye discomfort ENMT: Denies: throat pain, odynophagia, nasal discharge or nasal congestion Card: Denies: chest pain, palpitations, edema, swelling of feet/ankles, dyspnea on exertion or orthopnea Resp: Denies: dyspnea, productive cough or non-productive cough GI: Denies: abdominal pain, nausea, vomiting, diarrhea, constipation or hematochezia : Denies: flank pain, difficulty urinating, dysuria or hematuria Musc: Denies: neck pain, back pain or extremity swelling Skin/Breast: Reports: new lesions (Laceration over right eyebrow); Denies: rash Neuro: Denies: headache(s), numbness in extremities or weakness in extremities PFS ED PFSH: Medical History Esophagitis No pertinent past medical history Surgical History H/O esophagogastroduodenoscopy (10/17/20) History of colonoscopy (~2014) Family History Father Cancer Denies family history of Diabetes Social History Smoking and tobacco status: former smoker Household members: spouse Marital status: Current occupational status: retired Physical Exam Const: COMMON NORMALS: no acute distress, patient oriented x3 and alert GENERAL APPEARANCE: cooperative and comfortable HENMT: COMMON NORMALS: normocephalic HEAD & SCALP: normocephalic FACE & SINUS: laceration right above eyebrow linear and superficial; not actively bleeding and not contaminated Facial laceration size: 0.75 cm MOUTH: Normal oral and palatal mucosa present THROAT: posterior oropharynx normal and uvula midline Eye: COMMON NORMALS: Equal, round and reactive pupils present and EOMs intact bilaterally GENERAL EYE: appearance normal, both eyes and all related structures PUPIL: Yes Equal, round and reactive pupils present Neck/C-Spine: COMMON NORMALS: supple GENERAL: Yes normal visual inspection Lymph: LYMPHATIC: no lymphadenopathy noted Resp: COMMON NORMALS: normal respiratory effort, No retractions, No use of accessory muscles and clear to auscultation bilaterally AUSCULTATION: clear to auscultation bilaterally Cardio: COMMON NORMALS: regular rate, regular rhythm, S1 normal heart sound present, S2 normal heart sound present, No gallops present (Cardio), No clicks present (Cardio), No murmurs present (Cardio) and Peripheral pulses 2+ throughout RATE: regular rate RHYTHM: regular rhythm HEART SOUNDS: S1 normal heart sound present and S2 normal heart sound present PERIPHERAL PULSES: Peripheral pulses 2+ throughout GI: COMMON NORMALS: Normal to inspection, nondistended, normoactive bowel sounds present, Soft to palpation, non-tender and no masses PALPATION: Yes Soft to palpation : COMMON NORMALS: Yes no CVA tenderness BLADDER/KIDNEY EXAM: Yes no CVA tenderness Back/Pelvis: COMMON NORMALS: no CVA tenderness Extremity: GENERAL: Yes normal exam except as noted Neuro: COMMON NORMALS: patient oriented x3, CN's II-XII intact bilaterally, moves all extremities, no focal motor deficits and no sensory deficits noted SENSORIUM/ORIENTATION: Yes alert SENSORY EXAM: Yes extremities (intact) MOTOR EXAM: 5/5 motor strength present throughout Skin: COMMON NORMALS: no rashes or lesions noted GENERAL SKIN EXAM: no rashes or lesions noted and dry skin Procedures Laceration Laceration 1: Site: face (Above right eyebrow) Side (If applicable): right Size (cm): 0.75 Description: linear and clean Depth: simple, single layer Local Anesthetic: lidocaine 1% and with epi Amount of anesthesia used (mL): 2 Pre-repair: irrigated extensively (With normal saline) Skin layer closed with: nylon Size (cm): 5-0 Number of sutures: 2 Technique: simple, interrupted Course Vital Signs: Vital signs: Vital Signs Temperature 97.8 F 07/14/22 10:59 Pulse Rate 59 L 07/14/22 10:59 Respiratory Rate 18 07/14/22 10:59 Blood Pressure 159/64 07/14/22 10:59 Pulse Oximetry 97 07/14/22 10:59 Oxygen Delivery Me thod 07/14/22 10:59 MDM - Wound/Laceration Medical Decision Making Patient is an 87-year-old male who comes to the ED with fall. Patient says fall occurred this morning. He tripped over his shoes and fell and hit his head. Denies any loss of consciousness and patient is not on any blood thinners. He has a laceration on his right eyebrow. Vitals are stable. Patient has a small 0.75 cm laceration above right eyebrow. The rest of exam is benign. CT of face and head showed no acute findings. Patient's laceration was irrigated extensively with normal saline and 2 sutures were placed to close laceration. See procedure note for details. Patient was stable for discharge home and told to follow-up with PCP to have sutures removed within the next 5 days. Return to ED precautions given. Patient understood agree with plan. Lab Data Radiology Impressions Face CT 07/14/22 10:58 IMPRESSION: 1. No acute facial bone fractures are identified. 2. Indeterminate for distal RIGHT nasal bone fracture which is nondisplaced. 3. Tissue hematoma centered over the RIGHT lateral orbit. 4. C4 retrolisthesis by 4 mm and degenerative changes in the upper cervical spine. No acute fractures are identified. Head CT 07/14/22 10:58 IMPRESSION: 1. No acute intracranial hemorrhage or edema. 2. Atrophy and advanced small vessel ischemic disease. 3. Focal soft tissue hematoma over the lateral RIGHT orbit. Facial bone CT to follow. Discharge Plan Discharge Patient Disposition: Home Clinical Impression: Laceration of face Qualifiers: Encounter type: initial encounter Qualified Code(s): S01.81XA - Laceration without foreign body of other part of head, initial encounter Condition: Stable Prescriptions: No Action povidone-iodine [Betadine Swabsticks] 10 % swab 1 applic topical ONCE Qty: 1 0RF bacitracin 500 unit/gram packet 1 applic topical ONCE Qty: 1 0RF Protonix 40 mg tablet,delayed release (DR/EC) 40 mg PO BID 42 Days Qty: 84 3RF Discharge Orders: Discharge ED (Routine); Ordered 07/14/22 Ordered By: Calos Do Referrals: Kanu Taylor MD [Primary Care Provider] - Discharge Diet: Regular Discharge Activity: Increase activity as tolerated Patient Instructions: Facial Laceration (ED) Activity Restrictions/Additional Instructions: Keep laceration site clean and dry. Clean daily with soap and water and then apply thin layer of triple antibiotic ointment on it and cover with bandage. Watch for signs of infection such as redness, warmth, increased tenderness and puslike drainage. If you see the signs of infection return to the ED, urgent care or PCP for reevaluation. call your PCP to schedule a follow-up appointment for reevaluation and suture removal in about 5 days. Continue taking all home meds. Follow discharge plans as discussed. You can return to the ED if symptoms worsen. Coding Level of Care Code ED Recovery Engineer for Bebe Fwaguila Exam Comprehensive
== END 2022-07-14 12:42 | disposition home or self-care (01) ==
PROVIDERS: Emergency Provider Physician Assistant; PCP Family Medicine
DX: S01.111A Laceration without foreign body of right eyelid and periocular area, initial encounter (principal); W01.0XXA Fall on same level from slipping, tripping and stumbling without subsequent striking against object, initial encounter; Z87.891 Personal history of nicotine dependence
CPT/HCPCS: 70450; 70486; 99284

== ENCOUNTER 2022-10-11 08:12 | Oncology outpatient (recurring) (ONCR) | payer MEDICARE, MEDICAID, SELFPAY ==
[2022-10-11 09:33] LABS: Basophils % 0.3 %; Eosinophils # 0.1 10^3/uL (0.0-0.8); Hematocrit 38.3 % (42.0-52.0); Hemoglobin 12.4 g/dL (11.7-16.6); Lymphocytes % 31.9 %; Mean Corpuscular HGB Conc 32.4 g/dL (30.0-36.0); Mean Corpuscular Volume 98.7 fl (80-94); Mean Platelet Volume 11.5 fL (7.4-10.4); Monocytes # 0.4 10^3/uL (0.2-0.9); Monocytes % 12.1 %; Neutrophils # 1.59 10^3/uL (1.8-7.7); Neutrophils % 53.4 %; Nucleated Red Blood Cells % 0 %; Platelet Count 154 10^3/cmm (130-400); Red Blood Count 3.88 10^6/uL (4.1-5.3)
[2022-10-11 09:39] LABS: LAB Peripheral Smear Sent for Review; Reticulocyte % 0.8 % (0.5-2.0)
[2022-10-11 10:18] LABS: Alanine Aminotransferase 11 U/L (0-41); Albumin Level 4.5 g/dL (3.5-5.2); Alkaline Phosphatase 67 U/L (40-130); Anion Gap 14.4 (5-19); Aspartate Amino Transferase 22 U/L (0-40); Blood Urea Nitrogen 26 mg/dL (8-23); Calcium 9.8 mg/dL (8.5-10.5); Carbon Dioxide 29 mmol/L (22-29); Chloride 100 mmol/L (98-107); Ferritin 74 ng/mL (30-400); Glucose 102 mg/dL (65-115); Iron 60 ug/dL (59-158); Osmolality Calculated 293 mOsm/kg (285-295); Percent Saturation 18.6 % (20-50); Potassium 4.4 mmol/L (3.5-5.1); Sodium 139 mmol/L (136-145); Thyroid Stimulating Hormone 8.77 uIU/mL (0.27-4.20); Total Bilirubin 0.3 mg/dL (0.15-1.2); Total Iron Binding Capacity 321 mcg/dl; Total Protein 7.5 g/dL (6.6-8.7); Unsaturated Iron Binding 261 ug/dL (112-347); Vitamin B12 724 pg/mL (232-1245)
[2022-10-12 18:31] LABS: Erythrocyte Sedimentation Rate 6 mm/hr (0-10)
[2022-10-14 12:05] LABS: Methylmalonic Acid 206 nmol/L (87-318)
== END 2022-11-02 23:59 | disposition home or self-care (01) ==
PROVIDERS: PCP Family Medicine; Visit Provider Internal Medicine Medical Oncology
DX: D61.818 Other pancytopenia (principal); Z87.891 Personal history of nicotine dependence; D64.9 Anemia, unspecified
CPT/HCPCS: 36415; 80053; 82607; 82728; 83540; 83550; 83921; 84443; 85025; 85045; 85651; 99204

== ENCOUNTER → 2022-11-08 09:50 | Outpatient (BNVA) | payer MEDICARE, MEDICAID, SELFPAY | PROVIDERS: PCP Family Medicine; Visit Provider Podiatrist Foot & Ankle Surgery | DX: L85.1 Acquired keratosis [keratoderma] palmaris et plantaris (principal); M21.621 Bunionette of right foot; M21.622 Bunionette of left foot | CPT/HCPCS: 17110 ==

== ENCOUNTER 2022-11-18 12:53 | Oncology outpatient (recurring) (ONCR) | payer MEDICARE, MEDICAID, SELFPAY ==
[2022-11-17 12:57] LABS: Basophils % 0.3 %; Eosinophils # 0.1 10^3/uL (0.0-0.8); Eosinophils % 1.9 %; Hematocrit 34.5 % (42.0-52.0); Hemoglobin 10.9 g/dL (11.7-16.6); Lymphocytes # 0.9 10^3/uL (0.8-4.8); Mean Corpuscular HGB Conc 31.6 g/dL (30.0-36.0); Mean Corpuscular Hemoglobin 31.6 pg (28.0-34.0); Mean Platelet Volume 11.4 fL (7.4-10.4); Monocytes # 0.4 10^3/uL (0.2-0.9); Monocytes % 12.1 %; Neutrophils # 1.84 10^3/uL (1.8-7.7); Neutrophils % 58.4 %; Nucleated Red Blood Cells % 0 %; Platelet Count 145 10^3/cmm (130-400); Red Blood Count 3.45 10^6/uL (4.1-5.3); Red Cell Distribution Width 13.4 % (12.1-15.1); White Blood Count 3.2 10^3/uL (4.0-10.0)
[2022-11-17 13:17] LABS: Alanine Aminotransferase 11 U/L (0-41); Albumin Level 4.1 g/dL (3.5-5.2); Alkaline Phosphatase 60 U/L (40-130); Aspartate Amino Transferase 21 U/L (0-40); Blood Urea Nitrogen 21 mg/dL (8-23); Carbon Dioxide 28 mmol/L (22-29); Chloride 99 mmol/L (98-107); Ferritin 81 ng/mL (30-400); Globulin 2.5 g/dL (1.3-4.6); Glucose 92 mg/dL (65-115); Iron 105 ug/dL (59-158); Lactate Dehydrogenase 240 U/L (135-225); Osmolality Calculated 287 mOsm/kg (285-295); Percent Saturation 36.4 % (20-50); Sodium 137 mmol/L (136-145); Total Bilirubin 0.3 mg/dL (0.15-1.2); Total Iron Binding Capacity 288 mcg/dl; Total Protein 6.6 g/dL (6.6-8.7); Unsaturated Iron Binding 183 ug/dL (112-347)
[2022-11-18 14:36] LABS: Thyroid Stimulating Hormone 6.28 uIU/mL (0.27-4.20)
[2022-11-20 07:01] LABS: T4 Total 7.9 mcg/dL (4.9-10.5)
== END 2022-11-30 23:59 | disposition home or self-care (01) ==
PROVIDERS: PCP Family Medicine; Visit Provider Internal Medicine Medical Oncology
DX: D61.818 Other pancytopenia (principal); Z87.891 Personal history of nicotine dependence
CPT/HCPCS: 36415; 80053; 82728; 83540; 83550; 83615; 84436; 84443; 85025; 99213

== ENCOUNTER → 2023-02-07 09:41 | Outpatient (BNVA) | payer MEDICARE, MEDICAID, SELFPAY | PROVIDERS: PCP Family Medicine; Visit Provider Podiatrist Foot & Ankle Surgery | DX: L85.1 Acquired keratosis [keratoderma] palmaris et plantaris (principal); M21.621 Bunionette of right foot; M21.622 Bunionette of left foot | CPT/HCPCS: 17110 ==

== ENCOUNTER 2023-02-28 10:23 | Outpatient (CLI) | payer MEDICARE, MEDICAID, SELFPAY ==
[2023-02-28 10:48] LABS: Basophils % 0.8 %; Eosinophils # 0.1 10^3/uL (0.0-0.8); Eosinophils % 2.3 %; Hematocrit 40.3 % (42.0-52.0); Hemoglobin 12.9 g/dL (11.7-16.6); Lymphocytes # 0.9 10^3/uL (0.8-4.8); Lymphocytes % 35.7 %; Mean Corpuscular Hemoglobin 31.5 pg (28.0-34.0); Mean Corpuscular Volume 98.5 fl (80-94); Mean Platelet Volume 11.1 fL (7.4-10.4); Monocytes # 0.3 10^3/uL (0.2-0.9); Monocytes % 12.5 %; Neutrophils # 1.27 10^3/uL (1.8-7.7); Neutrophils % 48.3 %; Nucleated Red Blood Cells % 0 %; Platelet Count 178 10^3/cmm (130-400); Red Blood Count 4.09 10^6/uL (4.1-5.3); Red Cell Distribution Width 12.5 % (12.1-15.1); White Blood Count 2.6 10^3/uL (4.0-10.0)
[2023-02-28 11:20] LABS: Alanine Aminotransferase 10 U/L (0-41); Albumin Level 4.3 g/dL (3.5-5.2); Alkaline Phosphatase 67 U/L (40-130); Anion Gap 14.6 (5-19); Aspartate Amino Transferase 19 U/L (0-40); Blood Urea Nitrogen 17 mg/dL (8-23); Calcium 9.2 mg/dL (8.5-10.5); Carbon Dioxide 27 mmol/L (22-29); Chloride 103 mmol/L (98-107); Ferritin 63 ng/mL (30-400); Globulin 3.2 g/dL (1.3-4.6); Glucose 94 mg/dL (65-115); Iron 70 ug/dL (59-158); Osmolality Calculated 291 mOsm/kg (285-295); Potassium 4.6 mmol/L (3.5-5.1); Sodium 140 mmol/L (136-145); Thyroid Stimulating Hormone 1.03 uIU/mL (0.27-4.20); Total Bilirubin 0.3 mg/dL (0.15-1.2); Total Iron Binding Capacity 317 mcg/dl; Total Protein 7.5 g/dL (6.6-8.7); Unsaturated Iron Binding 247 ug/dL (112-347)
[2023-02-28 11:59] LABS: Free T4 Free Thyroxine 1.41 ng/dL (0.82-1.77)
== END 2023-02-28 10:24 | disposition home or self-care (01) ==
LOC: LAB 10:26
PROVIDERS: PCP Family Medicine; Visit Provider Internal Medicine Medical Oncology
DX: E03.9 Hypothyroidism, unspecified (principal); D64.9 Anemia, unspecified; L85.1 Acquired keratosis [keratoderma] palmaris et plantaris
CPT/HCPCS: 36415; 80053; 82728; 83540; 83550; 84439; 84443; 84481; 85025

== ENCOUNTER 2023-03-01 13:35 | Oncology outpatient (recurring) (ONCR) | payer MEDICARE, MEDICAID, SELFPAY | END 2023-03-02 23:59 | disposition home or self-care (01) | PROVIDERS: PCP Family Medicine; Visit Provider Internal Medicine Medical Oncology | DX: D61.818 Other pancytopenia (principal); Z87.891 Personal history of nicotine dependence; F41.9 Anxiety disorder, unspecified; Z79.899 Other long term (current) drug therapy | CPT/HCPCS: 99213 ==

== ENCOUNTER 2023-04-12 10:24 | Oncology outpatient (recurring) (ONCR) | payer MEDICARE, MEDICAID, SELFPAY ==
[2023-04-12 11:39] LABS: Basophils % 0.6 %; Eosinophils % 1.3 %; Hematocrit 36.5 % (42.0-52.0); Hemoglobin 11.9 g/dL (11.7-16.6); Lymphocytes % 31.2 %; Mean Corpuscular HGB Conc 32.6 g/dL (30.0-36.0); Mean Corpuscular Hemoglobin 31.5 pg (28.0-34.0); Mean Corpuscular Volume 96.6 fl (80-94); Mean Platelet Volume 10.1 fL (7.4-10.4); Monocytes # 0.4 10^3/uL (0.2-0.9); Monocytes % 13.3 %; Neutrophils # 1.63 10^3/uL (1.8-7.7); Nucleated Red Blood Cells % 0 %; Platelet Count 154 10^3/cmm (130-400); Red Blood Count 3.78 10^6/uL (4.1-5.3); Red Cell Distribution Width 12.9 % (12.1-15.1); White Blood Count 3.1 10^3/uL (4.0-10.0)
[2023-04-12 11:56] LABS: Alanine Aminotransferase 10 U/L (0-41); Albumin Level 4.2 g/dL (3.5-5.2); Alkaline Phosphatase 59 U/L (40-130); Anion Gap 12.8 (5-19); Aspartate Amino Transferase 16 U/L (0-40); Blood Urea Nitrogen 17 mg/dL (8-23); Calcium 8.8 mg/dL (8.5-10.5); Carbon Dioxide 27 mmol/L (22-29); Chloride 100 mmol/L (98-107); Globulin 2.6 g/dL (1.3-4.6); Glucose 102 mg/dL (65-115); Osmolality Calculated 284 mOsm/kg (285-295); Potassium 3.8 mmol/L (3.5-5.1); Sodium 136 mmol/L (136-145); Total Bilirubin 0.4 mg/dL (0.15-1.2); Total Protein 6.8 g/dL (6.6-8.7)
== END 2023-05-02 23:59 | disposition home or self-care (01) ==
PROVIDERS: Nurse Practitioner Family; PCP Family Medicine; Visit Provider Internal Medicine Medical Oncology
DX: D61.818 Other pancytopenia (principal)
CPT/HCPCS: 80053; 85025

== ENCOUNTER → 2023-05-09 09:06 | Outpatient (BNVA) | payer MEDICARE, MEDICAID, SELFPAY | PROVIDERS: PCP Family Medicine; Visit Provider Podiatrist Foot & Ankle Surgery | DX: L85.1 Acquired keratosis [keratoderma] palmaris et plantaris (principal); M21.621 Bunionette of right foot; M21.622 Bunionette of left foot | CPT/HCPCS: 17110 ==

== ENCOUNTER 2023-06-01 12:53 | Oncology outpatient (recurring) (ONCR) | payer MEDICARE, MEDICAID, SELFPAY ==
[2023-06-01 11:04] VITALS: BP 151/78; PULSE 68; RESP 16; TEMP 36.4; O2SAT 97
[2023-06-01 11:18] LABS: Basophils % 0.8 %; Eosinophils # 0.1 10^3/uL (0.0-0.8); Eosinophils % 2.5 %; Hematocrit 36.6 % (37-53); Lymphocytes % 26.1 %; Mean Corpuscular HGB Conc 32.2 g/dL (30-55); Mean Corpuscular Hemoglobin 31.7 pg (27-33); Mean Corpuscular Volume 98.4 fl (82-101); Mean Platelet Volume 10.8 fL (7.4-10.4); Monocytes # 0.4 10^3/uL (0.2-0.9); Monocytes % 9.9 %; Neutrophils # 2.39 10^3/uL (1.8-7.7); Neutrophils % 60.4 %; Nucleated Red Blood Cells % 0 %; Platelet Count 161 10^3/cmm (157-399); Red Blood Count 3.72 10^6/uL (3.85-5.65); Red Cell Distribution Width 13.2 % (12.1-15.1); White Blood Count 3.95 10^3/uL (3.29-11.43)
[2023-06-01 11:52] LABS: Alanine Aminotransferase < 5 U/L (0-41); Albumin Level 4.3 g/dL (3.5-5.2); Alkaline Phosphatase 67 U/L (40-130); Aspartate Amino Transferase 18 U/L (0-40); Blood Urea Nitrogen 15 mg/dL (8-23); Calcium 9.2 mg/dL (8.5-10.5); Carbon Dioxide 28 mmol/L (22-29); Chloride 102 mmol/L (98-107); Ferritin 102 ng/mL (30-400); Glucose 101 mg/dL (65-115); Iron 91 ug/dL (59-158); Lactate Dehydrogenase 212 U/L (135-225); Osmolality Calculated 287 mOsm/kg (285-295); Percent Saturation 33.9 % (20-50); Sodium 138 mmol/L (136-145); Thyroid Stimulating Hormone 3.35 uIU/mL (0.27-4.20); Total Bilirubin 0.3 mg/dL (0.15-1.2); Total Iron Binding Capacity 268 mcg/dl; Total Protein 7.3 g/dL (6.6-8.7); Unsaturated Iron Binding 177 ug/dL (112-347)
[2023-06-01 12:53] LABS: Free T4 Free Thyroxine 1.23 ng/dL (0.82-1.77)
== END 2023-06-02 23:59 | disposition home or self-care (01) ==
PROVIDERS: PCP Family Medicine; Visit Provider Internal Medicine Medical Oncology
DX: D61.818 Other pancytopenia (principal); Z87.891 Personal history of nicotine dependence; D64.9 Anemia, unspecified; E03.9 Hypothyroidism, unspecified; I10 Essential (primary) hypertension; K21.9 Gastro-esophageal reflux disease without esophagitis; E78.5 Hyperlipidemia, unspecified
CPT/HCPCS: 36415; 80053; 82728; 83540; 83550; 83615; 84439; 84443; 85025; 99213

== ENCOUNTER → 2023-07-26 14:05 | Outpatient (BNVA) | payer MEDICARE, MEDICAID, SELFPAY | PROVIDERS: PCP Family Medicine; Visit Provider Dermatology | DX: D48.5 Neoplasm of uncertain behavior of skin (principal); L57.0 Actinic keratosis; L82.1 Other seborrheic keratosis; L57.8 Other skin changes due to chronic exposure to nonionizing radiation | CPT/HCPCS: 11102; 17000; 99203 ==

== ENCOUNTER → 2023-08-16 08:20 | Outpatient (BNVA) | payer MEDICARE, MEDICAID, SELFPAY | PROVIDERS: PCP Family Medicine; Visit Provider Dermatology | DX: C44.612 Basal cell carcinoma of skin of right upper limb, including shoulder (principal) | CPT/HCPCS: 13121; 17313 ==

== ENCOUNTER → 2023-08-30 13:18 | Outpatient (BNVA) | payer MEDICARE, MEDICAID, SELFPAY | PROVIDERS: PCP Family Medicine; Visit Provider Dermatology | DX: Z48.02 Encounter for removal of sutures (principal) | CPT/HCPCS: 99024; 99212 ==

== ENCOUNTER → 2023-09-05 09:03 | Outpatient (BNVA) | payer MEDICARE, MEDICAID, SELFPAY | PROVIDERS: PCP Family Medicine; Visit Provider Podiatrist Foot & Ankle Surgery | DX: L84 Corns and callosities (principal); L85.1 Acquired keratosis [keratoderma] palmaris et plantaris; M21.621 Bunionette of right foot; M21.622 Bunionette of left foot | CPT/HCPCS: 17110 ==

== ENCOUNTER 2023-09-13 14:51 | Oncology outpatient (recurring) (ONCR) | payer MEDICARE, MEDICAID, SELFPAY ==
[2023-09-13 15:16] VITALS: BP 158/83; PULSE 70; RESP 16; TEMP 36.7; O2SAT 95
[2023-09-13 15:33] LABS: Basophils % 0.7 %; Eosinophils # 0.1 10^3/uL (0.0-0.8); Eosinophils % 2.6 %; Hematocrit 34.8 % (37-53); Lymphocytes % 32.1 %; Mean Corpuscular Hemoglobin 32.6 pg (27-33); Mean Corpuscular Volume 98.6 fl (82-101); Mean Platelet Volume 10.8 fL (7.4-10.4); Monocytes # 0.4 10^3/uL (0.2-0.9); Monocytes % 12.6 %; Neutrophils # 1.56 10^3/uL (1.8-7.7); Neutrophils % 51.7 %; Nucleated Red Blood Cells % 0 %; Platelet Count 152 10^3/cmm (157-399); Red Blood Count 3.53 10^6/uL (3.85-5.65); Red Cell Distribution Width 13.2 % (12.1-15.1); White Blood Count 3.02 10^3/uL (3.29-11.43)
[2023-09-13 15:55] LABS: Alanine Aminotransferase 12 U/L (0-41); Albumin Level 4.3 g/dL (3.5-5.2); Alkaline Phosphatase 61 U/L (40-130); Anion Gap 13.1 (5-19); Aspartate Amino Transferase 19 U/L (0-40); Blood Urea Nitrogen 18 mg/dL (8-23); Calcium 9.3 mg/dL (8.5-10.5); Carbon Dioxide 26 mmol/L (22-29); Chloride 102 mmol/L (98-107); Globulin 2.9 g/dL (1.3-4.6); Glucose 97 mg/dL (65-115); Osmolality Calculated 286 mOsm/kg (285-295); Potassium 4.1 mmol/L (3.5-5.1); Sodium 137 mmol/L (136-145); Thyroid Stimulating Hormone 2.22 uIU/mL (0.27-4.20); Total Bilirubin 0.3 mg/dL (0.15-1.2); Total Protein 7.2 g/dL (6.6-8.7)
== END 2023-10-02 23:59 | disposition home or self-care (01) ==
LOC: ONCMED 14:53
PROVIDERS: Nurse Practitioner Family; PCP Family Medicine; Visit Provider Internal Medicine Medical Oncology
DX: D61.818 Other pancytopenia (principal); Z87.891 Personal history of nicotine dependence; D64.9 Anemia, unspecified; E03.9 Hypothyroidism, unspecified
CPT/HCPCS: 36415; 80053; 84443; 85025

== ENCOUNTER → 2023-09-14 13:27 | Outpatient (BNVA) | payer MEDICARE, MEDICAID, SELFPAY | PROVIDERS: PCP Family Medicine; Visit Provider Nurse Practitioner Family | DX: D61.818 Other pancytopenia; Z79.899 Other long term (current) drug therapy | CPT/HCPCS: 99213 ==

== ENCOUNTER 2023-12-14 14:17 | Oncology outpatient (recurring) (ONCR) | payer MEDICARE, MEDICAID, SELFPAY ==
[2023-12-07 10:28] LABS: Basophils % 0.4 %; Eosinophils # 0.1 10^3/uL (0.0-0.8); Eosinophils % 2.5 %; Hematocrit 34.8 % (37-53); Lymphocytes # 0.8 10^3/uL (0.8-4.8); Mean Corpuscular Hemoglobin 32.8 pg (27-33); Mean Corpuscular Volume 99.1 fl (82-101); Mean Platelet Volume 10.8 fL (7.4-10.4); Monocytes # 0.4 10^3/uL (0.2-0.9); Monocytes % 13.5 %; Neutrophils # 1.59 10^3/uL (1.8-7.7); Neutrophils % 56.2 %; Nucleated Red Blood Cells % 0 %; Platelet Count 149 10^3/cmm (157-399); Red Blood Count 3.51 10^6/uL (3.85-5.65); Red Cell Distribution Width 13.2 % (12.1-15.1); White Blood Count 2.82 10^3/uL (3.29-11.43)
[2023-12-07 10:51] LABS: Alanine Aminotransferase 10 U/L (0-41); Albumin Level 4.1 g/dL (3.5-5.2); Alkaline Phosphatase 56 U/L (40-130); Anion Gap 13.3 (5-19); Aspartate Amino Transferase 21 U/L (0-40); Blood Urea Nitrogen 19 mg/dL (8-23); Calcium 9.2 mg/dL (8.5-10.5); Carbon Dioxide 27 mmol/L (22-29); Chloride 100 mmol/L (98-107); Globulin 2.9 g/dL (1.3-4.6); Glucose 89 mg/dL (65-115); Osmolality Calculated 284 mOsm/kg (285-295); Potassium 4.3 mmol/L (3.5-5.1); Sodium 136 mmol/L (136-145); Total Bilirubin 0.4 mg/dL (0.15-1.2)
== END 2024-01-01 23:59 | disposition home or self-care (01) ==
PROVIDERS: Nurse Practitioner Family; PCP Family Medicine; Visit Provider Internal Medicine Medical Oncology
DX: E03.9 Hypothyroidism, unspecified (principal); D61.818 Other pancytopenia; Z79.899 Other long term (current) drug therapy
CPT/HCPCS: 17110; 36415; 80053; 85025; 99213

== ENCOUNTER 2023-12-15 15:29 | Emergency (ER) | payer MEDICARE, MEDICAID, SELFPAY ==
[2023-12-15 15:32] VITALS: BP 174/97; PULSE 63; RESP 18; TEMP 36.6; O2SAT 98; BMI 26.6
--- NOTE | 2023-12-15 15:34 | CT_ITS ---
WS: [id number] CT HEAD NONCONTRAST HISTORY: fall TECHNIQUE: Contiguous axial imaging performed through the brain in 2.5 mm imaging. Bone and soft tiss ue windows. Sagittal and coronal reformats reviewed. All CT scans at [facility] use at least one of these dose optimization techniques: automated exposure control; mA and/or kV adjustment per pa tient size (includes targeted exams where dose is matched to clinical indication); or iterative recon struction. DLP: 1417.39 mGy.cm COMPARISON: 07/14/2022 No acute intracranial hemorrhage, midline shift or mass effect. Moderate bilateral atrophy and severe small vessel ischemic disease. No prior large territory infarct . Moderate bilateral cerebellar atrophy. Ventricles: Normal size with no hydrocephalus. Heavy atherosclerotic calcification in the vertebral and the intracranial carotid arteries. Paranasal sinuses: As visualized are clear. Mastoid air cells: Normal. Calvarium and scalp: There is a large amount of blood intermixed with air and soft tissue along the p osterior occiput. Exact site of the laceration is difficult to determine. IMPRESSION: 1. No acute intracranial hemorrhage. 2. Moderate bilateral cerebral and cerebellar atrophy and advanced small vessel ischemic disease. 3. There is a large amount of blood intermixed with soft tissue surrounding the posterior calvarium. The exact site of the laceration is difficult to determine by CT.
--- NOTE | 2023-12-15 15:34 | CT_ITS ---
WS: [id number] CT CERVICAL SPINE HISTORY: fall TECHNIQUE: Contiguous 2.0 mm axial imaging performed through the entire cervical spine. Sagittal and coronal reformats also performed. All CT scans at [facility] use at least one of these dose o ptimization techniques: automated exposure control; mA and/or kV adjustment per patient size (include s targeted exams where dose is matched to clinical indication); or iterative reconstruction. DLP: 1417.39 mGy.cm COMPARISON: None available. Increase in cervical lordosis. C3 retrolisthesis by 4.3 mm. Disc spaces are mildly narrowed. Facet osorio ints are normally aligned. Craniocervical junction is normal. C2-C3: Osteophytic ridging and RIGHT foraminal stenosis. C3-C4: Vertebral body osteophytic ridging and bilateral foraminal stenosis from osteoarthritis. C4-C5: Bilateral advanced facet joint arthritis and bilateral foraminal stenosis. C5-C6: Facet joint arthritis and foraminal stenosis. C6-C7: Osteophytic ridging and bilateral facet arthritis. Foraminal stenosis. C7-T1: Normal. Lung apices are clear. IMPRESSION: 1. No acute cervical spine fracture. 2. Facet joint arthritis and cervical spondylosis. 3. Retrolisthesis of C3 is similar to the prior study from 07/14/2022. This is not related to the ac rasheed injury.
--- NOTE | 2023-12-15 15:36 | W.ED.FALL ---
HPI - Fall General: Chief Complaint: Trauma Stated Complaint: fall with significant head injury Time Seen by Provider: 12/15/23 15:31 Source: patient and EMS Mode of arrival: EMS Limitations: no limitations History of Present Illness: 88-year-old male states that he tripped and fell at home hit his head he states he had another fall after that as well and hit his head again. Per EMS he had had a laceration to left scalp currently has dressing on states that he had been bleeding at the scene he is on a c-collar while he does complain of a headache along with neck pain he denies any other injuries. He rates his headache a 7 out of 10. He had some vomiting with EMS as well Associated symptoms-after fall: Reports headache(s); Denies abdominal pain, chest pain or neck pain Review of Systems Const: Denies: fever(s), chills, body aches or change in appetite Eyes: Denies: blurry vision ENMT: Denies: throat pain or dental pain Card: Denies: chest pain Resp: Denies: dyspnea GI: Reports: vomiting; Denies: abdominal pain, nausea or diarrhea Musc: Denies: neck pain or back pain Skin/Breast: Denies: rash Neuro: Reports: headache(s) PFS ED PFSH: Medical History GERD (gastroesophageal reflux disease) Hyperlipidemia Hypertension No pertinent past medical history Surgical History History of bilateral carpal tunnel release History of inguinal hernia repair History of back surgery History of colonoscopy (~2014) H/O esophagogastroduodenoscopy (10/17/20) Family History Father Cancer Denies family history of Diabetes Social History Smoking and tobacco/nicotine status: never used tobacco/nicotine Household members: spouse Marital status: Current occupational status: retired Physical Exam Const: COMMON NORMALS: patient oriented x3 HENMT: COMMON NORMALS: normocephalic HEAD & SCALP: normocephalic OTHER: 1cm lac to posterior scalp Eye: COMMON NORMALS: Equal, round and reactive pupils present and EOMs intact bilaterally PUPIL: Yes Equal, round and reactive pupils present Neck/C-Spine: OTHER: in c collar Chest: COMMONS NORMALS: normal inspection of the chest and normal palpation of entire chest wall Resp: COMMON NORMALS: normal respiratory effort, No retractions, No use of accessory muscles and clear to auscultation bilaterally AUSCULTATION: clear to auscultation bilaterally Cardio: COMMON NORMALS: regular rate, regular rhythm and No murmurs present (Cardio) RATE: regular rate RHYTHM: regular rhythm GI: COMMON NORMALS: Normal to inspection, nondistended, normoactive bowel sounds present, Soft to palpation, non-tender and no masses PALPATION: Yes Soft to palpation Extremity: COMMON NORMALS: normal to inspection and full ROM Neuro: COMMON NORMALS: patient oriented x3, moves all extremities and no focal motor deficits Psych: COMMON NORMALS: mental status grossly normal, Normal thought process present and cooperative THOUGHT PROCESS: Normal thought process present Skin: COMMON NORMALS: no rashes or lesions noted and no wounds GENERAL SKIN EXAM: no rashes or lesions noted Procedures Laceration Laceration 1: Site: scalp Size (cm): 1 Description: linear Depth: simple, single layer Local Anesthetic: lidocaine 1% Amount of anesthesia used (mL): 5 Pre-repair: wound explored and irrigated extensively Skin layer closed with: other (2 deepak) Course Vital Signs: Vital signs: Vital Signs Temperature 97.9 F 12/15/23 15:32 Pulse Rate 62 12/15/23 16:41 Respiratory Rate 18 12/15/23 15:32 Blood Pressure 172/84 12/15/23 16:41 Pulse Oximetry 98 12/15/23 16:41 Oxygen Delivery Me thod Room Air 12/15/23 16:41 MDM - Fall Medical Decision Making Patient presents with a head laceration from a fall imaging here is all negative he is able ambulate here without any difficulty did repair his laceration he stable for discharge follow-up PCP return if worsening. Medical Records I reviewed the patient's medical records. Lab Data I reviewed the patient's lab results. 12/15/23 16:29 12/15/23 16:29 Laboratory Results WBC 4.58 10^3/uL (3.29-11.43) 12/15/23 16:29 RBC 3.48 10^6/uL (3.85-5.65) L 03/14/24 16: Hgb 11.40 g/dL (11.27-16.99) 12/15/23 16: Hct 34.2 % (37-53) L 12/15/23 16: MCV 98.3 fl (82-101) 12/15/23 16: MCH 32.8 pg (27-33) 12/15/23 16: MCHC 33.3 g/dL (30-55) 12/15/23 16: RDW 13.1 % (12.1-15.1) 12/15/23 16: Plt Count 147 10^3/cmm (157-399) L 12/15/23 16: MPV 11.1 fL (7.4-10.4) H 12/15/23 16: Neut % (Auto) 82.2 % 12/15/23 16: Lymph % (Auto) 9.4 % 12/15/23 16: [place] % (Auto) 7.4 % 12/15/23 16: Eos % (Auto) 0.4 % 12/15/23 16: Baso % (Auto) 0.2 % 12/15/23 16: Neut # (Auto) 3.76 10^3/uL (1.8-7.7) 12/15/23 16: Lymph # (Auto) 0.4 10^3/uL (0.8-4.8) L 12/15/23 16: [place] # (Auto) 0.3 10^3/uL (0.2-0.9) 12/15/23 16: Eos # (Auto) 0.0 10^3/uL (0.0-0.8) 12/15/23 16: Baso # (Auto) 0.0 10^3/uL (0.0-0.1) 12/15/23 16: Nucleated RBC % (auto) 0 % 12/15/23: Nucleated RBCs # 0.0 /100WBC 12/15/23 16: PT 13.30 SECONDS (12.1-14.9) 12/15/23 16: INR 0.98 (0.8-1.2) 12/15/23 16:29 Sodium 138 mmol/L (136-145) 12/15/23 16:29 Potassium 3.8 mmol/L (3.5-5.1) 12/15/23 16:29 Chloride 101 mmol/L (98-107) 12/15/23 16:29 Carbon Dioxide 26 mmol/L (22-29) 12/15/23 16:29 Anion Gap 14.8 (5-19) 12/15/23 16:29 BUN 19 mg/dL (8-23) 12/15/23 16:29 Creatinine 1.1 mg/dL (0.7-1.2) 12/15/23 16:29 GFR Calculation Not Reportable 12/15/23 16:29 Glucose 151 mg/dL (65-115) H 12/15/23 16:29 Calculated Osmolality 291 mOsm/kg (285-295) 12/15/23 16:29 Calcium 9.3 mg/dL (8.5-10.5) 12/15/23 16:29 Total Bilirubin 0.4 mg/dL (0.15-1.2) 12/15/23 16:29 AST 21 U/L (0-40) 12/15/23 16:29 ALT 11 U/L (0-41) 12/15/23 16:29 Alkaline Phosphatase 58 U/L (40-130) 12/15/23 16:29 Total Protein 6.9 g/dL (6.6-8.7) 12/15/23 16:29 Albumin 4.3 g/dL (3.5-5.2) 12/15/23 16:29 Globulin 2.6 g/dL (1.3-4.6) 12/15/23 16:29 All radiology interpretation(s) finalized by discharge Discharge Plan Discharge Patient Disposition: Home Clinical Impression: Laceration of head Condition: Stable Prescriptions: No Action povidone-iodine [Betadine Swabsticks] 10 % swab 1 applic topical ONCE Qty: 1 0RF bacitracin 500 unit/gram packet 1 applic topical ONCE Qty: 1 0RF lisinopril-hydrochlorothiazide 20-12.5 mg tablet 1 tab PO DAILY fluoxetine 10 mg capsule 10 mg PO DAILY folic acid 1 mg tablet 1 mg PO DAILY mecobalamin (vitamin B12) 1,000 mcg tablet,chewable 1,000 mcg PO DAILY cholecalciferol (vitamin D3) 25 mcg (1,000 unit) capsule 25 mcg PO DAILY Protonix 40 mg tablet,delayed release (DR/EC) 40 mg PO DAILY levofloxacin 500 mg tablet 500 mg PO DAILY 7 Days Qty: 7 0RF ferrous sulfate 325 mg (65 mg iron) tablet 325 mg PO DAILY Qty: 30 0RF levothyroxine 50 mcg tablet 50 mcg PO DAILY Qty: 30 1RF Discharge Orders: Discharge ED (Routine); Ordered 12/15/23 Ordered By: Ubaldo Henley Referrals: Kanu Taylor MD [Primary Care Provider] - 4-7 days Discharge Diet: Advance as tolerated Discharge Activity: Resume usual activity Patient Instructions: Head Injury (ED), Head Laceration (ED) Activity Restrictions/Additional Instructions: staple removal in 7 days Coding Level of Care Code ED [employer] 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
[2023-12-15] MEDS: hyDRALAzine 20 mg/mL INJ 1 mL 10 MG IVP (16:07)
[2023-12-15] MEDS: lidocaine 1% INJ 10 mL (per mL) SUBCUT (16:36)
[2023-12-15 16:41] VITALS: BP 172/84; PULSE 62; O2SAT 98
[2023-12-15 16:49] LABS: Basophils % 0.2 %; Eosinophils % 0.4 %; Hematocrit 34.2 % (37-53); Lymphocytes # 0.4 10^3/uL (0.8-4.8); Lymphocytes % 9.4 %; Mean Corpuscular HGB Conc 33.3 g/dL (30-55); Mean Corpuscular Hemoglobin 32.8 pg (27-33); Mean Corpuscular Volume 98.3 fl (82-101); Mean Platelet Volume 11.1 fL (7.4-10.4); Monocytes # 0.3 10^3/uL (0.2-0.9); Monocytes % 7.4 %; Neutrophils # 3.76 10^3/uL (1.8-7.7); Neutrophils % 82.2 %; Nucleated Red Blood Cells % 0 %; Platelet Count 147 10^3/cmm (157-399); Red Blood Count 3.48 10^6/uL (3.85-5.65); Red Cell Distribution Width 13.1 % (12.1-15.1); White Blood Count 4.58 10^3/uL (3.29-11.43)
[2023-12-15 17:00] LABS: INR 0.98 (0.8-1.2)
[2023-12-15 17:10] LABS: Alanine Aminotransferase 11 U/L (0-41); Albumin Level 4.3 g/dL (3.5-5.2); Alkaline Phosphatase 58 U/L (40-130); Anion Gap 14.8 (5-19); Aspartate Amino Transferase 21 U/L (0-40); Blood Urea Nitrogen 19 mg/dL (8-23); Calcium 9.3 mg/dL (8.5-10.5); Carbon Dioxide 26 mmol/L (22-29); Chloride 101 mmol/L (98-107); Creatinine Clr Calc Pharmacy 43.2874; Globulin 2.6 g/dL (1.3-4.6); Glucose 151 mg/dL (65-115); Osmolality Calculated 291 mOsm/kg (285-295); Potassium 3.8 mmol/L (3.5-5.1); Sodium 138 mmol/L (136-145); Total Bilirubin 0.4 mg/dL (0.15-1.2); Total Protein 6.9 g/dL (6.6-8.7)
== END 2023-12-15 17:28 | disposition home or self-care (01) ==
PROVIDERS: Emergency Provider Emergency Medicine; PCP Family Medicine
DX: S01.01XA Laceration without foreign body of scalp, initial encounter (principal); W01.0XXA Fall on same level from slipping, tripping and stumbling without subsequent striking against object, initial encounter; E78.5 Hyperlipidemia, unspecified; I10 Essential (primary) hypertension
CPT/HCPCS: 12001; 36415; 70450; 72125; 80053; 85025; 85610; 96374; 99285; J0360

== ENCOUNTER → 2024-03-13 08:52 | Outpatient (BNVA) | payer MEDICARE, MEDICAID, SELFPAY | PROVIDERS: PCP Family Medicine; Visit Provider Podiatrist Foot & Ankle Surgery | DX: L85.1 Acquired keratosis [keratoderma] palmaris et plantaris (principal); M21.621 Bunionette of right foot; M21.622 Bunionette of left foot | CPT/HCPCS: 17110 ==

== ENCOUNTER 2024-05-04 03:48 | Emergency (ER) | payer MEDICARE, MEDICAID, SELFPAY ==
[2024-05-04 03:50] VITALS: BP 153/94; PULSE 84; RESP 20; TEMP 37.2; O2SAT 78; BMI 23.3
--- NOTE | 2024-05-04 03:58 | CTR_ITS ---
PROCEDURE INFORMATION: Exam: CT Head Without Contrast Exam date and time: 05/04/2024 4:12 AM Age: 88 years old Clinical indication: Injury or trauma; Without residual foreign body; Scalp; Patient HX: EMS arrival from half-way for fall. Patient struck head on bed rail. Deep laceration RT side of head near vertex. TECHNIQUE: Imaging protocol: Computed tomography of the head without contrast. Radiation optimization: All CT scans at this facility use at least one of these dose optimization techniques: automated exposure control; mA and/or kV adjustment per patient size (includes targeted exams where dose is matched to clinical indication); or iterative reconstruction. COMPARISON: CT head wo con* [id number] 12/15/2023 3:45 PM RADIATION DOSE METRICS: Total DLP (mGy-cm): 1337.13 FINDINGS: Brain: There is moderate cerebral atrophy. There is marked diffuse heterogeneity of the white matter attenuation, consistent with severe chronic white matter ischemic changes. Negative for acute intracranial hemorrhage. Negative for mass effect on the brain. Negative for midline shift of the brain. Negative for space-occupying intracranial mass. Cerebral ventricles: No ventriculomegaly. Paranasal sinuses: Visualized sinuses are unremarkable. No fluid levels. Mastoid air cells: Visualized mastoid air cells are well aerated. Bones: Unremarkable. No acute fracture. Soft tissues: Laceration injury with hematoma superior right lateral scalp. CT/CT head wo con* [id number] IMPRESSION: Negative for acute intracranial injury.
--- NOTE | 2024-05-04 04:20 | ED_ITS ---
HPI - Fall General: Chief Complaint: Fall Stated Complaint: Fall, Lac to head, Time Seen by Provider: 05/04/24 03:49 History of Present Illness: 88-year-old male presents with laceratio n to his right posterior scalp. Patient reports she gotten up to [employer] and fell. Patient suffered a laceration to his scalp and skin tear to the left arm. Associated symptoms-after fall: Denies abdominal pain or chest pain Review of Systems Const: Denies: fever(s) or chills Card: Denies: chest pain or palpitations Resp: Denies: dyspnea or productive cough GI: Denies: abdominal pain, nausea or vomiting : Denies: flank pain Skin/Breast: Reports: other (Laceration scalp, skin tear left arm) PFSH ED PFSH: Medical History GERD (gastroesophageal reflux disease) Hyperlipidemia Hypertension No pertinent past medical history Surgical History History of bilateral carpal tunnel release History of inguinal hernia repair History of back surgery History of colonoscopy (~2014) H/O esophagogastroduodenoscopy (10/17/20) Family History Father Cancer Denies family history of Diabetes Social History Smoking and tobacco/nicotine status: never used tobacco/nicotine Household members: spouse Marital status: Current occupational status: retired Physical Exam Const: COMMON NORMALS: no acute distress and patient oriented x3 Eye: COMMON NORMALS: Equal, round and reactive pupils present PUPIL: Yes Equal, round and reactive pupils present Resp: COMMON NORMALS: normal respiratory effort, No use of accessory muscles and clear to auscultation bilaterally AUSCULTATION: clear to auscultation bilaterally Cardio: COMMON NORMALS: regular rate and regular rhythm RATE: regular rate RHYTHM: regular rhythm Neuro: COMMON NORMALS: patient oriented x3 Psych: COMMON NORMALS: mental status grossly normal, cooperative and normal affect Skin: NARRATIVE SKIN EXAM: 5 cm laceration right posterior scalp Procedures Laceration Laceration 1: Site: scalp (Right posterior) Side (If applicable): right Size (cm): 5 Description: flap Depth: simple, single layer Local Anesthetic: lidocaine 1% Amount of anesthesia used (mL): 10 Pre-repair: wound explored and irrigated extensively Skin layer closed with: vicryl and other (3 deepak) Size (cm): 3-0 Number of sutures: 1 Technique: running Course Vital Signs: Vital signs: Vital Signs Temperature 99 F 05/04/24 03:50 Pulse Rate 84 05/04/24 03:50 Respiratory Rate 20 H 05/04/24 03:50 Blood Pressure 153/94 05/04/24 03:50 Pulse Oximetry 78 L 05/04/24 03:50 MDM - Fall Medical Decision Making Patient with large laceration that was closed with 3 deepak. One half of the wound was closed with observable sutures due to difficulty getting approximation with deepak and needing to stop bleeding from venous/arterial bleed. Patient tolerated well. Bleeding was controlled. Did place a sterile pressure trace dressing. He should follow-up in about 10 days to have the deepak removed. I will start him on Augmentin Lab Data Radiology Impressions Head CT 05/04/24 03:58 IMPRESSION: Negative for acute intracranial injury. All radiology interpretation(s) finalized by discharge Discharge Plan Discharge Patient Disposition: Home Clinical Impression: Laceration of scalp without foreign body Qualifiers: Encounter type: initial encounter Qualified Code(s): S01.01XA - Laceration without foreign body of scalp, initial encounter Fall from standing Qualifiers: Encounter type: initial encounter Qualified Code(s): W19.XXXA - Unspecified fall, initial encounter Avulsion of skin of forearm Qualifiers: Encounter type: initial encounter Laterality: left Qualified Code(s): S51.802A - Unspecified open wound of left forearm, initial encounter Condition: Stable Prescriptions: New Augmentin 500-125 mg tablet 1 tab PO BID Qty: 10 0RF No Action povidone-iodine [Betadine Swabsticks] 10 % swab 1 applic topical ONCE Qty: 1 0RF bacitracin 500 unit/gram packet 1 applic topical ONCE Qty: 1 0RF lisinopril-hydrochlorothiazide 20-12.5 mg tablet 1 tab PO DAILY fluoxetine 10 mg capsule 10 mg PO DAILY folic acid 1 mg tablet 1 mg PO DAILY mecobalamin (vitamin B12) 1,000 mcg tablet,chewable 1,000 mcg PO DAILY cholecalciferol (vitamin D3) 25 mcg (1,000 unit) capsule 25 mcg PO DAILY Protonix 40 mg tablet,delayed release (DR/EC) 40 mg PO DAILY levofloxacin 500 mg tablet 500 mg PO DAILY 7 Days Qty: 7 0RF ferrous sulfate 325 mg (65 mg iron) tablet 325 mg PO DAILY Qty: 30 0RF levothyroxine 50 mcg tablet 50 mcg PO DAILY Qty: 30 1RF Discharge Orders: Discharge ED (Routine); Ordered 05/04/24 Ordered By: Jagdish Ureña Referrals: Kanu Taylor MD [Primary Care Provider] - Discharge Diet: Advance as tolerated Discharge Activity: Resume usual activity Patient Instructions: Laceration (ED), Opioid Safety, Pain Management Activity Restrictions/Additional Instructions: Keep wound clean with warm soapy water. Please return in 10 days to have deepak removed. Your sutures are absorbable so they will dissolve on their ow n. Do not submerge in water for 72 hours. Tylenol ibuprofen as needed for discomfort. Return to the ER as needed. Coding Level of Care Code ED Breaker Tender for Bebe Pike
[2024-05-04 04:21] VITALS: BP 131/76; PULSE 71; O2SAT 95
[2024-05-04 06:00] VITALS: BP 129/80; PULSE 71; O2SAT 94
[2024-05-04 06:30] VITALS: BP 121/91; PULSE 76; O2SAT 92
[2024-05-04 08:54] VITALS: BP 121/91; PULSE 76; O2SAT 92
== END 2024-05-04 08:46 | disposition home or self-care (01) ==
PROVIDERS: Emergency Provider Student in an Organized Health Care Education/Training Program; PCP Family Medicine
DX: S01.01XA Laceration without foreign body of scalp, initial encounter (principal); S51.812A Laceration without foreign body of left forearm, initial encounter; E78.5 Hyperlipidemia, unspecified; I10 Essential (primary) hypertension; W19.XXXA Unspecified fall, initial encounter
CPT/HCPCS: 12002; 70450; 99284

== ENCOUNTER → 2024-05-22 09:15 | Outpatient (BNVA) | payer MEDICARE, MEDICAID, SELFPAY | PROVIDERS: PCP Family Medicine; Visit Provider Podiatrist Foot & Ankle Surgery | DX: L85.1 Acquired keratosis [keratoderma] palmaris et plantaris (principal); M21.621 Bunionette of right foot; M21.622 Bunionette of left foot | CPT/HCPCS: 17110 ==

== ENCOUNTER → 2024-07-25 08:52 | Outpatient (BNVA) | payer MEDICARE, MEDICAID, SELFPAY | PROVIDERS: PCP Family Medicine; Visit Provider Podiatrist Foot & Ankle Surgery | DX: L85.1 Acquired keratosis [keratoderma] palmaris et plantaris (principal); M21.621 Bunionette of right foot; M21.622 Bunionette of left foot | CPT/HCPCS: 17110 ==

== ENCOUNTER → 2024-09-19 08:48 | Outpatient (BNVA) | payer MEDICARE, MEDICAID, SELFPAY | PROVIDERS: PCP Family Medicine; Visit Provider Podiatrist Foot & Ankle Surgery | DX: L85.1 Acquired keratosis [keratoderma] palmaris et plantaris (principal); M21.621 Bunionette of right foot; M21.622 Bunionette of left foot | CPT/HCPCS: 17110 ==

== ENCOUNTER 2024-11-08 19:18 | Emergency (ER) | payer MEDICARE, MEDICAID, SELFPAY ==
--- NOTE | 2024-11-08 19:23 | XRR_ITS ---
PROCEDURE INFORMATION: Exam: XR Right Hand Exam date and time: 11/08/2024 7:31 PM Age: 89 years old Clinical indication: Injury or trauma; Fall; Laceration; Hand; Right; Additional info: Fall laceration TECHNIQUE: Imaging protocol: Radiologic exam of the right hand. Views: 3 or more views. COMPARISON: No relevant prior studies available. FINDINGS: Bones/joints: No acute fracture or dislocation. [id number] degenerative changes involving several interphalangeal joints. Moderate degenerative changes of the 1st carpometacarpal joint. Soft tissues: Normal. Vasculature: Scattered vascular calcifications. XR/XR hand RT min 3V* [id number] IMPRESSION: 1. No acute osseous findings. 2. Polyarticular degenerative changes.
--- NOTE | 2024-11-08 19:23 | XRR_ITS ---
PROCEDURE INFORMATION: Exam: XR Right Forearm Exam date and time: 11/08/2024 7:33 PM Age: 89 years old Clinical indication: Injury or trauma; Fall; Laceration; Arm, lower; Right; Additional info: Fall laceration TECHNIQUE: Imaging protocol: Radiologic exam of the right forearm. Views: 2 views. COMPARISON: CR XR hand RT min 3V* [id number] 11/08/2024 7:31 PM FINDINGS: Bones/joints: No acute fracture or dislocation. Degenerative changes throughout the wrist, most pronounced at the 1st carpometacarpal joint. Ill-defined densities seen in the proximal forearm along the flexor surface of the elbow on the lateral view. Olecranon spurring. Soft tissues: Normal. Vasculature: Scattered vascular calcifications. XR/XR forearm RT 2V [id number] IMPRESSION: 1. No acute osseous findings. 2. Ill-defined densities along the flexor surface of the elbow seen only on the lateral view could be external to the patient, though foreign bodies are also not excluded. Correlate with clinical findings.
--- NOTE | 2024-11-08 19:23 | W.ED.FALL ---
HPI - Fall General: Chief Complaint: Fall Stated Complaint: Fall Time Seen by Provider: 11/08/24 19:18 History of Present Illness: Patient presents by EMS with complaints of a fall and laceration to his right hand and forearm. Patient usually uses a walker but was not using his walker this time and fell down. Patient's hand is bandaged up bleeding is controlled. Patient has no other complaints at this time. Patient is on no anticoagulation. Related Data Home Medications ?Medication ?Instructions ?Recorded ?Confirmed cholecalciferol (vitamin D3) 25 25 mcg PO DAILY 10/11/22 09/19/24 mcg (1,000 unit) capsule fluoxetine 10 mg capsule 10 mg PO DAILY 10/11/22 09/19/24 folic acid 1 mg tablet 1 mg PO DAILY 10/11/22 09/19/24 lisinopril 20 1 tab PO DAILY 10/11/22 09/19/24 mg-hydrochlorothiazide 12.5 mg tablet mecobalamin (vitamin B12) 1,000 1,000 mcg PO DAILY 10/11/22 09/19/24 mcg chewable tablet pantoprazole 40 mg tablet,delayed 40 mg PO DAILY 03/01/23 09/19/24 release (Protonix) Previous Rx's ?Medication ?Instructions ?Recorded levofloxacin 500 mg tablet 500 mg PO DAILY 7 days #7 tabs 03/01/23 ferrous sulfate 325 mg (65 mg 325 mg PO DAILY #30 tabs 07/21/23 iron) tablet levothyroxine 50 mcg tablet 50 mcg PO DAILY #30 tabs 07/25/23 amoxicillin 500 mg-potassium 1 tab PO BID #10 tabs 05/04/24 clavulanate 125 mg tablet (Augmentin) Allergies Allergy/AdvReac Type Severity Reaction Status Date / Time No Known Allergies Allergy Verified 09/19/24 08:57 Review of Systems General: Reports: 10 or more systems reviewed and unremarkable except in HPI and below PFSH ED PFSH: Medical History GERD (gastroesophageal reflux disease) Hyperlipidemia Hypertension No pertinent past medical history Surgical History History of bilateral carpal tunnel release History of inguinal hernia repair History of back surgery History of colonoscopy (~2014) H/O esophagogastroduodenoscopy (10/17/20) Family History Father Cancer Denies family history of Diabetes Social History Smoking and tobacco/nicotine status: never used tobacco/nicotine Household members: spouse Marital status: Current occupational status: retired Physical Exam Const: COMMON NORMALS: no acute distress, average body habitus, patient oriented x3, no limitations, healthy appearing, alert and well nourished HENMT: COMMON NORMALS: normocephalic, atraumatic, hearing grossly normal bilaterally, external ears normal and Normal external nose present HEAD & SCALP: normocephalic and atraumatic NOSE: Normal external nose present EXTERNAL EAR: Yes external ears normal Eye: COMMON NORMALS: Equal, round and reactive pupils present, EOMs intact bilaterally, conjunctivae normal and no scleral icterus CONJUNCTIVA: Yes conjunctivae normal PUPIL: Yes Equal, round and reactive pupils present Neck/C-Spine: COMMON NORMALS: full ROM, no lymphadenopathy, supple, no meningeal signs, no JVD and Thyroid normal THYROID: Thyroid normal Chest: COMMONS NORMALS: normal inspection of the chest and normal palpation of entire chest wall Resp: COMMON NORMALS: normal respiratory effort, No retractions, No use of accessory muscles and clear to auscultation bilaterally AUSCULTATION: clear to auscultation bilaterally Cardio: COMMON NORMALS: no JVD, regular rate, regular rhythm, S1 normal heart sound present, S2 normal heart sound present, No gallops present (Cardio), No clicks present (Cardio), No murmurs present (Cardio) and No rub (Cardio) RATE: regular rate RHYTHM: regular rhythm HEART SOUNDS: S1 normal heart sound present and S2 normal heart sound present GI: COMMON NORMALS: Normal to inspection, nondistended, normoactive bowel sounds present, Soft to palpation, non-tender, No hepatosplenomegaly present and no masses PALPATION: Yes Soft to palpation and Yes No hepatosplenomegaly present Extremity: NARRATIVE EXTREMITY EXAM: Patient has a large laceration of his radial side of his forearm and multiple skin tears on the dorsum of his hand. Neuro: COMMON NORMALS: patient oriented x3 SENSORIUM/ORIENTATION: Yes alert MENINGEAL SIGNS: Yes no meningeal signs Procedures Laceration Laceration 1: Site: upper extremity (Right forearm) Size (cm): 8 Description: linear Depth: simple, single layer Local Anesthetic: lidocaine 1% Amount of anesthesia used (mL): 3 Pre-repair: wound explored and deep structures intact Skin layer closed with: nylon Size (cm): 4-0 Number of sutures: 8 Technique: simple, interrupted Course Vital Signs: Vital signs: Vital Signs Temperature 97.7 F 11/08/24 19:27 Pulse Rate 66 11/08/24 19:30 Respiratory Rate 20 H 11/08/24 19:27 Blood Pressure 153/63 11/08/24 19:30 Pulse Oximetry 100 11/08/24 19:30 Oxygen Delivery Me thod Room Air 11/08/24 19:30 MDM - Fall Medical Decision Making X-rays of patient's forearm and hand were negative for acute fracture, laceration was sewn with 4-0 nylon in a interrupted simple fashion with 8 sutures. Skin tears were approximated and dressed. Patient should follow-up with his PCP in approximately 7 to 10 days for reevaluation and probable suture removal. Medical Records I reviewed the patient's medical records. Lab Data I reviewed the patient's lab results. Radiology Impressions Forearm X-Ray 11/08/24 19:23 IMPRESSION: 1. No acute osseous findings. 2. Ill-defined densities along the flexor surface of the elbow seen only on the lateral view could be external to the patient, though foreign bodies are also not excluded. Correlate with clinical findings. Hand X-Ray 11/08/24 19:23 IMPRESSION: 1. No acute osseous findings. 2. Polyarticular degenerative changes. All radiology interpretation(s) finalized by discharge Discharge Plan Discharge Patient Disposition: Home Clinical Impression: Fall, Hand laceration, Skin tear Condition: Stable Prescriptions: No Action povidone-iodine [Betadine Swabsticks] 10 % swab 1 applic topical ONCE Qty: 1 0RF bacitracin 500 unit/gram packet 1 applic topical ONCE Qty: 1 0RF lisinopril-hydrochlorothiazide 20-12.5 mg tablet 1 tab PO DAILY fluoxetine 10 mg capsule 10 mg PO DAILY folic acid 1 mg tablet 1 mg PO DAILY mecobalamin (vitamin B12) 1,000 mcg tablet,chewable 1,000 mcg PO DAILY cholecalciferol (vitamin D3) 25 mcg (1,000 unit) capsule 25 mcg PO DAILY Protonix 40 mg tablet,delayed release (DR/EC) 40 mg PO DAILY levofloxacin 500 mg tablet 500 mg PO DAILY 7 Days Qty: 7 0RF ferrous sulfate 325 mg (65 mg iron) tablet 325 mg PO DAILY Qty: 30 0RF levothyroxine 50 mcg tablet 50 mcg PO DAILY Qty: 30 1RF Augmentin 500-125 mg tablet 1 tab PO BID Qty: 10 0RF Discharge Orders: Discharge ED (Routine); Ordered 11/08/24 Ordered By: Mitchell Holden Referrals: Kanu Taylor MD [Primary Care Provider] - 1 week Patient Instructions: Laceration (DC), Skin Tear (ED) Activity Restrictions/Additional Instructions: The x-rays of your right hand and right forearm did not show any fracture. Laceration was sutured closed. And dressed. Please keep the dressing clean and dry and change it as needed. Please follow-up with your primary care doctor in approximately 7 to 10 days for reevaluation and suture removal. Thank you for choosing [facility] for your healthcare needs today. Please realize that you were seen in the emergency department and that we are providing you with an emergency medical screening exam and this may not be a complete and all exclusive of all testing and/or medical workup we may need to determine your element or severity of your illness. It is very important that you follow-up as instructed with your primary care provider or specialist for the additional evaluation and to discuss your medical treatment plan. You may return to the emergency department should you have concerns or if your condition changes or worsens in any way. 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
[2024-11-08 19:27] VITALS: BP 155/93; PULSE 66; RESP 20; TEMP 36.5; O2SAT 99; BMI 21.6
[2024-11-08 19:30] VITALS: BP 153/63; PULSE 66; O2SAT 100
[2024-11-08] MEDS: lidocaine 1% 10 ML INJ XX (20:05)
== END 2024-11-08 21:28 | disposition home or self-care (01) ==
PROVIDERS: Emergency Provider Emergency Medicine; PCP Family Medicine
DX: S61.411A Laceration without foreign body of right hand, initial encounter (principal); W19.XXXA Unspecified fall, initial encounter; E78.5 Hyperlipidemia, unspecified; I10 Essential (primary) hypertension
CPT/HCPCS: 12004; 73090; 73130; 99283

== ENCOUNTER → 2024-12-12 10:56 | Outpatient (BNVA) | payer MEDICARE, MEDICAID, SELFPAY | PROVIDERS: PCP Family Medicine; Visit Provider Podiatrist Foot & Ankle Surgery | DX: L85.1 Acquired keratosis [keratoderma] palmaris et plantaris (principal); L84 Corns and callosities; M21.621 Bunionette of right foot; M21.622 Bunionette of left foot | CPT/HCPCS: 17110 ==

== ENCOUNTER 2025-02-25 08:10 | Inpatient (IN) | payer MEDICARE, MEDICAID, SELFPAY ==
[2025-02-25] VITALS (15 sets, daily range): BP systolic 134–204; BP diastolic 51–101; PULSE 58–80; RESP 13–18; TEMP 36.7–36.8; O2SAT 93–99; BMI 27.1
--- NOTE | 2025-02-25 08:14 | XRR_ITS ---
PROCEDURE INFORMATION: Exam: XR Chest Exam date and time: 02/25/2025 8:19 AM Age: 89 years old Clinical indication: Cough and dyspnea; Additional info: Dyspnea/cough TECHNIQUE: Imaging protocol: Radiologic exam of the chest. Views: 1 view. COMPARISON: CR XR chest 2V* [id number] 06/08/2023 8:17 AM FINDINGS: Lungs: There is a 7 mm calcified granuloma in the left lower lung unchanged from the prior study. There is otherwise no pulmonary consolidation. Pleural spaces: Unremarkable. No pleural effusion. No pneumothorax. Heart/Mediastinum: Unremarkable. No cardiomegaly. Bones/joints: The bones are osteopenic with degenerative change. XR/XR chest 1V portable [id number] IMPRESSION: No acute cardiopulmonary disease.
--- NOTE | 2025-02-25 08:14 | CTR_ITS ---
PROCEDURE INFORMATION: Exam: CT Cervical Spine Without Contrast Exam date and time: 02/25/2025 8:33 AM Age: 89 years old Clinical indication: Injury or trauma; Fall; Blunt trauma TECHNIQUE: Imaging protocol: Computed tomography of the cervical spine without contrast. Radiation optimization: All CT scans at this facility use at least one of these dose optimization techniques: automated exposure control; mA and/or kV adjustment per patient size (includes targeted exams where dose is matched to clinical indication); or iterative reconstruction. COMPARISON: CT cervical spin wo con* [id number] 12/15/2023 3:45 PM RADIATION DOSE METRICS: Total DLP (mGy-cm): 277.3 FINDINGS: Bones: There is no evidence for acute cervical fracture. The bones are osteopenic. There is degenerative posterior positioning of C3 on C4 measuring 2 mm. Spondylosis is noted with disc osteophyte, uncovertebral spurring and facet arthropathy worst at the C3-C4 level where there is concentric narrowing of the canal or the cord. Lungs: Lung apices are normal. Soft tissues: Unremarkable. CT/CT cervical spin wo con* [id number] IMPRESSION: No evidence for acute cervical fracture.
--- NOTE | 2025-02-25 08:15 | CTR_ITS ---
PROCEDURE INFORMATION: Exam: CT Head Without Contrast Exam date and time: 02/25/2025 8:33 AM Age: 89 years old Clinical indication: Injury or trauma; Fall; Blunt trauma (contusions or hematomas) TECHNIQUE: Imaging protocol: Computed tomography of the head without contrast. Radiation optimization: All CT scans at this facility use at least one of these dose optimization techniques: automated exposure control; mA and/or kV adjustment per patient size (includes targeted exams where dose is matched to clinical indication); or iterative reconstruction. COMPARISON: CT head wo con* [id number] 05/04/2024 4:12 AM RADIATION DOSE METRICS: Total DLP (mGy-cm): 1111.3 FINDINGS: Brain: There is no mass effect, midline shift, acute hemorrhage, extra-axial fluid collection or acute lobar infarct. Extensive hemispheric and ganglial capsular white matter hypodensity likely represents chronic microvascular ischemic change. Cerebral ventricles: No ventriculomegaly. Paranasal sinuses: Visualized sinuses are unremarkable. No fluid levels. Mastoid air cells: Mastoid air cells are under developed on the right. Orbital cavities: Patient is post bilateral cataract surgery. Bones: Unremarkable. No acute fracture. Soft tissues: Unremarkable. 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 CT/CT head wo con* [id number] IMPRESSION: No acute intracranial process.
[2025-02-25 08:25] LABS: Basophils % 0.5 %; Eosinophils # 0.1 10^3/uL (0.0-0.8); Eosinophils % 2.7 %; Hematocrit 30.5 % (37-53); Lymphocytes # 1.5 10^3/uL (0.8-4.8); Lymphocytes % 35.4 %; Mean Corpuscular HGB Conc 29.5 g/dL (30-55); Mean Corpuscular Hemoglobin 25.3 pg (27-33); Mean Corpuscular Volume 85.7 fl (82-101); Mean Platelet Volume 10.5 fL (7.4-10.4); Monocytes # 0.6 10^3/uL (0.2-0.9); Monocytes % 13.4 %; Neutrophils # 1.96 10^3/uL (1.8-7.7); Neutrophils % 47.8 %; Nucleated Red Blood Cells % 0 %; Platelet Count 237 10^3/cmm (157-399); Red Blood Count 3.56 10^6/uL (3.85-5.65); Red Cell Distribution Width 17.2 % (12.1-15.1)
[2025-02-25 08:47] LABS: Alanine Aminotransferase 16 U/L (0-41); Albumin Level 4.3 g/dL (3.5-5.2); Alkaline Phosphatase 79 U/L (40-130); Anion Gap 19.1 (5-19); Aspartate Amino Transferase 25 U/L (0-40); Blood Urea Nitrogen 19 mg/dL (8-23); Calcium 9.3 mg/dL (8.5-10.5); Carbon Dioxide 22 mmol/L (22-29); Chloride 102 mmol/L (98-107); Creatinine Clr Calc Pharmacy 42.8055; Globulin 3.1 g/dL (1.3-4.6); Glucose 117 mg/dL (65-115); Osmolality Calculated 291 mOsm/kg (285-295); Potassium 4.1 mmol/L (3.5-5.1); Sodium 139 mmol/L (136-145); Total Bilirubin 0.4 mg/dL (0.15-1.2); Total Protein 7.4 g/dL (6.6-8.7)
[2025-02-25 08:49] LABS: Troponin(5th) Baseline 28 ng/L (0-15)
--- NOTE | 2025-02-25 09:09 | W.ED.EXTPRO ---
HPI - Extremity Problem General: Chief complaint: Extremity Injury, Lower Stated complaint: fall, cp , head pain Time Seen by Provider: 02/25/25 08:11 History of Present Illness: 89-year-old male presents emergency room from [facility] unwitnessed fall at the intermediate when he hit his head he vomited once after this. His main complaint I came to see the patient was right hip pain. He denies neck pain denies chest or abdominal pain. Patient is reported by the intermediate to have multiple falls recently. He is not on any anticoagulants he tells me he did eat breakfast this morning Associated symptoms: Deny chest pain, fever(s) or rash Related Data Home Medications ?Medication ?Instructions ?Recorded ?Confirmed cholecalciferol (vitamin D3) 25 25 mcg PO DAILY 10/11/22 12/12/24 mcg (1,000 unit) capsule fluoxetine 10 mg capsule 10 mg PO DAILY 10/11/22 12/12/24 folic acid 1 mg tablet 1 mg PO DAILY 10/11/22 12/12/24 lisinopril 20 1 tab PO DAILY 10/11/22 12/12/24 mg-hydrochlorothiazide 12.5 mg tablet mecobalamin (vitamin B12) 1,000 1,000 mcg PO DAILY 10/11/22 12/12/24 mcg chewable tablet pantoprazole 40 mg tablet,delayed 40 mg PO DAILY 03/01/23 12/12/24 release (Protonix) Previous Rx's ?Medication ?Instructions ?Recorded ferrous sulfate 325 mg (65 mg 325 mg PO DAILY #30 tabs 07/21/23 iron) tablet levothyroxine 50 mcg tablet 50 mcg PO DAILY #30 tabs 07/25/23 Allergies Allergy/AdvReac Type Severity Reaction Status Date / Time No Known Allergies Allergy Verified 12/12/24 11:28 Review of Systems Const: Denies: fever(s) or chills Card: Denies: chest pain Resp: Denies: dyspnea GI: Denies: abdominal pain : Denies: dysuria, urinary frequency or urinary urgency Musc: Denies: neck pain or back pain Skin/Breast: Denies: rash PFSH ED PFSH: Medical History GERD (gastroesophageal reflux disease) Hyperlipidemia Hypertension No pertinent past medical history Surgical History History of bilateral carpal tunnel release History of inguinal hernia repair History of back surgery History of colonoscopy (~2014) H/O esophagogastroduodenoscopy (10/17/20) Family History Father Cancer Denies family history of Diabetes Social History Smoking and tobacco/nicotine status: never used tobacco/nicotine Household members: spouse Marital status: Current occupational status: retired Physical Exam Const: GENERAL APPEARANCE: cooperative ORIENTATION/CONSCIOUSNESS: Yes awake HENMT: COMMON NORMALS: normocephalic and atraumatic HEAD & SCALP: normocephalic and atraumatic Resp: COMMON NORMALS: normal respiratory effort, No retractions, No use of accessory muscles and clear to auscultation bilaterally AUSCULTATION: clear to auscultation bilaterally Cardio: COMMON NORMALS: regular rate, regular rhythm and No murmurs present (Cardio) RATE: regular rate RHYTHM: regular rhythm GI: COMMON NORMALS: Soft to palpation and No hepatosplenomegaly present AUSCULTATION: Yes normoactive bowel sounds PALPATION: Yes Soft to palpation, No Tenderness to palpation present (GI), No Guarding due to palpation present (GI) and Yes No hepatosplenomegaly present Extremity: COMMON NORMALS: capillary refill normal, no clubbing, cyanosis or edema, no calf tenderness and no pedal edema OTHER: Shortening and external rotation of the right hip. X-ray shows intertrochanteric comminuted fracture Skin: COMMON NORMALS: no rashes or lesions noted GENERAL SKIN EXAM: no rashes or lesions noted Course Vital Signs: Vital signs: Vital Signs Temperature 98.1 F 02/25/25 08:13 Pulse Rate 60 02/25/25 08:13 Respiratory Rate 16 02/25/25 09:43 Blood Pressure 181/81 02/25/25 08:13 Pulse Oximetry 96 02/25/25 09:43 Oxygen Delivery Me thod Room Air 02/25/25 08:13 MDM - Extremity (Nontraumatic) Medical Decision Making Intertrochanteric comminuted right hip fracture. Will admit discussed with hospitalist and with orthopedist. Pain medications given initial basic labs done [place] placed. Orders written patient n.p.o. for now until orthopedics sees the patient. Medical Records I reviewed the patient's medical records. Lab Data I reviewed the patient's lab results. 02/25/25 07:45 02/25/25 07:45 Radiology Impressions Cervical Spine CT 02/25/25 08:14 IMPRESSION: No evidence for acute cervical fracture. Chest X-Ray 02/25/25 08:14 IMPRESSION: No acute cardiopulmonary disease. Head CT 02/25/25 08:15 IMPRESSION: No acute intracranial process. Hip/Pelvis X-Ray 02/25/25 09:13 IMPRESSION: Fracture of the right proximal femur. Laboratory Results WBC 4.10 10^3/uL (3.29-11.43) 02/25/25 07:45 RBC 3.56 10^6/uL (3.85-5.65) L 02/25/25 07:45 Hgb 9.00 g/dL (11.27-16.99) L 02/25/25 07:45 Hct 30.5 % (37-53) L 02/25/25 07:45 MCV 85.7 fl (82-101) 02/25/25 07:45 MCH 25.3 pg (27-33) L 02/25/25 07:45 MCHC 29.5 g/dL (30-55) L 02/25/25 07:45 RDW 17.2 % (12.1-15.1) H 02/25/25 07:45 Plt Count 237 10^3/cmm (157-399) 02/25/25 07:45 MPV 10.5 fL (7.4-10.4) H 02/25/25 07:45 Neut % (Auto) 47.8 % 02/25/25 07:45 Lymph % (Auto) 35.4 % 02/25/25 07:45 [place] % (Auto) 13.4 % 02/25/25 07:45 Eos % (Auto) 2.7 % 02/25/25 07:45 Baso % (Auto) 0.5 % 02/25/25 07:45 Neut # (Auto) 1.96 10^3/uL (1.8-7.7) 02/25/25 07:45 Lymph # (Auto) 1.5 10^3/uL (0.8-4.8) 02/25/25 07:45 [place] # (Auto) 0.6 10^3/uL (0.2-0.9) 02/25/25 07:45 Eos # (Auto) 0.1 10^3/uL (0.0-0.8) 02/25/25 07:45 Baso # (Auto) 0.0 10^3/uL (0.0-0.1) 02/25/25 07:45 Nucleated RBC % (auto) 0 % 02/25/25 07:45 Nucleated RBCs # 0.0 /100WBC 02/25/25 07:45 Sodium 139 mmol/L (136-145) 02/25/25 07:45 Potassium 4.1 mmol/L (3.5-5.1) 02/25/25 07:45 Chloride 102 mmol/L (98-107) 02/25/25 07:45 Carbon Dioxide 22 mmol/L (22-29) 02/25/25 07:45 Anion Gap 19.1 (5-19) H 02/25/25 07:45 BUN 19 mg/dL (8-23) 02/25/25 07:45 Creatinine 1.1 mg/dL (0.7-1.2) 02/25/25 07:45 GFR Calculation Not Reportable 02/25/25 07:45 Glucose 117 mg/dL (65-115) H 02/25/25 07:45 Calculated Osmolality 291 mOsm/kg (285-295) 02/25/25 07:45 Calcium 9.3 mg/dL (8.5-10.5) 02/25/25 07:45 Total Bilirubin 0.4 mg/dL (0.15-1.2) 02/25/25 07:45 AST 25 U/L (0-40) 02/25/25 07:45 ALT 16 U/L (0-41) 02/25/25 07:45 Alkaline Phosphatase 79 U/L (40-130) 02/25/25 07:45 Troponin T Baseline 28 ng/L (0-15) H 02/25/25 07:45 Total Protein 7.4 g/dL (6.6-8.7) 02/25/25 07:45 Albumin 4.3 g/dL (3.5-5.2) 02/25/25 07:45 Globulin 3.1 g/dL (1.3-4.6) 02/25/25 07:45 All radiology interpretation(s) finalized by discharge Discharge Plan Discharge Patient Disposition: Admitted As Inpatient Clinical Impression: Fracture of right hip, Anemia Condition: Stable Coding Level of Care Code 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
--- NOTE | 2025-02-25 09:13 | XRR_ITS ---
PROCEDURE INFORMATION: Exam: XR Right Hip Exam date and time: 02/25/2025 9:13 AM Age: 89 years old Clinical indication: Injury or trauma; Fall; Blunt trauma (contusions or hematomas); Right; Hip; Prior surgery; Surgery date: 6+ months; Surgery type: [place]; Additional info: Pain TECHNIQUE: Imaging protocol: Radiologic exam of the right hip. Views: 1 view hip with pelvis when performed. COMPARISON: CR XR hip RT 2-3V wo/w pel* [id number] 01/19/2022 1:21 PM FINDINGS: Bones/joints: There is a comminuted and angulated intertrochanteric fracture of the right proximal femur. Plate and screw fixation hardware is partially imaged about the sacroiliac and pubic symphysis. Soft tissues: Unremarkable. XR/XR hip RT 2-3V wo/w pel* [id number] IMPRESSION: Fracture of the right proximal femur.
[2025-02-25] MEDS: fentaNYL 50 mcg/mL INJ 2mL 25 MCG IVP (09:43)
--- NOTE | 2025-02-25 10:15 | ECG_ITS ---
[facility] Test Date: 2025-02-25 Pat Name: Gualberto Guzmán Department: Room: Gender: Male [employer] Administrator: : 1935 Requested By: Leland Connor Order Number: [id number] Reading MD: RAOUL CARRILLO Measurements Intervals [place] Rate: 60 P: 12 WI: 203 QRS: -34 QRSD: 110 T: 29 QT: 440 QTc: 442 Interpretive Statements SINUS RHYTHM LEFT AXIS DEVIATION [QRS AXIS < -30] LEFT VENTRICULAR HYPERTROPHY AND ST-T CHANGE [VOLTAGE CRITERIA PLUS ST/T ABNORMALITY] No previous ECG available for comparison Electronically Signed On 02-25-2025 19:07:30 CDT by RAOUL CARRILLO [email or web address]
[2025-02-25 10:30] LABS: Bilirubin Urine Negative (Negative); Blood Urine Negative (Negative); Glucose Urine UA Negative (Normal); Ketones Urine Negative (Negative); Leukocyte Esterase Urine Negative (Negative); Nitrate Urine Negative (Negative); Protein Urine Trace (Negative); Specific Gravity, Urine 1.013 (1.005-1.030); Urine Appearance Clear (CLEAR); Urine Color Yellow (Yellow); Urobilinogen Urine 0.2 mg/dL (Negative); pH Urine 6.5 (5-7)
[2025-02-25 10:32] LABS: Add Urine Microscopic? YES; Bacteria Urine None Seen /hpf; RBC Urine 0-2 /hpf (0-2); Squamous Epithelial Cell Urine 0-5 /hpf (0-5); WBC Urine 0-5 /hpf (0-5)
[2025-02-25 10:48] LABS: Troponin 5 2HR 22.57 ng/L (0-15)
[2025-02-25 10:50] LABS: Troponin 5 2HR Delta -5.43 ABS# (0-10)
--- NOTE | 2025-02-25 11:09 | PM.HP ---
Providers/Chief Complaint Admitting Physician: Johan Hargrove Primary Care Provider: Kaun Taylor MD Chief Complaint: fall, cp , head pain History of Present Illness Gualberto Guzmán is a 89 year old male with a history of HTN, HLD and anemia, prior pelvic fractures presents after being found on the floor, apparently following a fall. The patient does not recall the event but remembers having breakfast and using the bathroom earlier in the day. There is a history of fainting episodes, with the most recent prior episode occurring about a week ago, also while using the bathroom. The patient reports no recent fever, headache, lightheadedness, dizziness, chest pain, abdominal pain, nausea, vomiting, diarrhea, blood in stool or urine, or rashes. Appetite and oral intake are reportedly good. The patient denies any recent changes in medications. The right hip is painful, and the patient expresses significant discomfort. No swelling in the legs is noted. The patient is concerned about pain and is interested in surgical repair to return to previous activity levels, which included walking about eight miles a day. There is no mention of recent infections or other acute symptoms. The patient denies smoking and alcohol use. Review of Systems Const: Denies: fever(s), chills, body aches or malaise ENMT: Denies: throat pain Card: Reports: lightheadedness (with standing); Denies: chest pain, edema, pre-syncope or dyspnea on exertion Resp: Denies: dyspnea, productive cough, change in phlegm color or hemoptysis GI: Denies: abdominal pain, nausea, vomiting, diarrhea, constipation, hematochezia or melena : Denies: flank pain, difficulty urinating, urinary frequency or hematuria Musc: Reports: joint pain (R hip); Denies: back pain, joint swelling or joint redness Skin/Breast: Denies: rash or new lesions Neuro: Denies: headache(s) or confusion Medications/Allergies Home Medications ?Medication ?Instructions ?Recorded ?Confirmed ?Last Taken ?Type cholecalciferol (vitamin D3) 25 25 mcg PO DAILY 10/11/22 02/25/25 02/24/25 07:35 History mcg (1,000 unit) capsule fluoxetine 10 mg capsule 10 mg PO DAILY 10/11/22 02/25/25 02/24/25 07:35 History folic acid 1 mg tablet 1 mg PO DAILY 10/11/22 02/25/25 02/24/25 07:35 History mecobalamin (vitamin B12) 1,000 1,000 mcg PO DAILY 10/11/22 02/25/25 02/24/25 07:35 History mcg chewable tablet pantoprazole 40 mg tablet,delayed 40 mg PO DAILY 03/01/23 02/25/25 02/24/25 07:40 History release (Protonix) acetaminophen 325 mg tablet 325 mg PO QID PRN Fever Or Pain 02/25/25 02/25/25 02/20/25 21:35 History (Tylenol) bisacodyl 10 mg rectal suppository 10 mg OR DAILY PRN Constipation 02/25/25 02/25/25 Unknown History (Dulcolax (bisacodyl)) levothyroxine 50 mcg tablet See Rx Instructions .Route .COMPLEX 02/25/25 02/25/25 02/25/25 05:55 History levothyroxine 75 mcg tablet See Rx Instructions .Route .COMPLEX 02/25/25 02/25/25 02/22/25 History lisinopril 10 mg tablet 10 mg PO DAILY 02/25/25 02/25/25 02/24/25 07:40 History magnesium hydroxide 400 mg/5 mL 30 ml PO DAILY PRN Constipation 02/25/25 02/25/25 Unknown History oral suspension (Milk of Magnesia) menthol 4 % topical gel (Biofreeze 1 applic topical QID PRN muscle 02/25/25 02/25/25 02/21/25 19:00 History (menthol)) screnoss mv-mn-folic 200 mcg-vit K 15 1 cap PO BID 02/25/25 02/25/25 02/24/25 15:45 History mcg-lutein 5 mg-zeaxanthin 1 mg capsule (PreserVision AREDS 2 Plus Multivit) sennosides 25 mg tablet 25 mg PO DAILY 02/25/25 02/25/25 02/24/25 History sodium phosphates 19 gram-7 118 ml OR DAILY PRN Constipation 02/25/25 02/25/25 Unknown History gram/118 mL enema (Fleet Enema) Allergies Allergy/AdvReac Type Severity Reaction Status Date / Time No Known Allergies Allergy Verified 12/12/24 11:28 PFSH Acute PFSH: Medical History (Updated 02/25/25 @ 14:40 by Johan Hargrove MD) Multiple fractures of pelvis with unstable disruption of pelvic ring, subsequent encounter for fracture with routine healing Pancytopenia GERD (gastroesophageal reflux disease) Hyperlipidemia Hypertension Surgical History History of bilateral carpal tunnel release History of inguinal hernia repair History of back surgery History of colonoscopy (~2014) H/O esophagogastroduodenoscopy (10/17/20) Family History Father Cancer Denies family history of Diabetes Social History Smoking and tobacco/nicotine status: never used tobacco/nicotine Household members: spouse Marital status: Current occupational status: retired Vitals/I&O/Wt Last Vital Signs Temp 98.1 F 02/25/25 08:13 Pulse 60 02/25/25 08:13 Resp 16 02/25/25 09:43 BP 181/81 02/25/25 08:13 Pulse Ox 96 02/25/25 09:43 O2 Del Method Room Air 02/25/25 08:13 Weight last 48 hrs Weight 73.936 kg Physical Exam Narrative: Very hard of hearing. But hears when spoken to very loudly. Const: COMMON NORMALS: patient oriented x3 and alert GENERAL APPEARANCE: cooperative ORIENTATION/CONSCIOUSNESS: Yes awake HENMT: COMMON NORMALS: oropharynx normal Neck/C-Spine: COMMON NORMALS: no JVD Resp: COMMON NORMALS: normal respiratory effort and clear to auscultation bilaterally AUSCULTATION: clear to auscultation bilaterally Cardio: COMMON NORMALS: no JVD, regular rhythm, S1 normal heart sound present, S2 normal heart sound present and No murmurs present (Cardio) RHYTHM: regular rhythm HEART SOUNDS: S1 normal heart sound present and S2 normal heart sound present GI: COMMON NORMALS: Normal to inspection, nondistended, normoactive bowel sounds present, Soft to palpation and non-tender PALPATION: Yes Soft to palpation Extremity: COMMON NORMALS: no joint enlargement and no pedal edema OTHER: Mildly everted right lower extremity. Tenderness of the right hip. Neuro: COMMON NORMALS: patient oriented x3 and moves all extremities SENSORIUM/ORIENTATION: Yes alert Skin: COMMON NORMALS: no rashes or lesions noted GENERAL SKIN EXAM: no rashes or lesions noted Data 02/25/25 07:45 02/25/25 07:45 A&P Assessment and plan (1) Fracture of right hip: sustained a right hip fracture after a fall, with significant pain and functional limitation. The patient does not recall the event but has a history of similar episodes. The orthopedic surgeon is being consulted for surgical repair which she would like to pursue to try to regain his mobility and independence. He understands risks of surgery when discussed, including those related to age, comorbidities, with consideration of alternative of not pursuing surgery however fraught with potential for complications if left untreated (e.g., immobility, pressure sores, pneumonia). Discussed increased risk of complications, including complication, pneumonia, as well as increased risk of with his family as well. From history obtained from family prior fall and unstable fracture of the pelvis, on review of pelvic x-ray no noted hardware disruption. Additionally unclear cause of fall and syncope. Unclear if syncope may have preceded the fall which seems possible. Additional assessment as below. Discussed with orthopedic surgery anesthesiology concern for syncope. Additional assessment with TTE for possible aortic stenosis which will help guide anesthesia. As well as underlying anemia worse than prior, hemoglobin 9. He has not noticed any recent bleeding, hematochezia or melena. Discussed with him and family risk of blood loss anemia with fracture and surgery. Reassess blood counts. Complete troponin EKG series. Tentative plan for surgical repair tomorrow afternoon. He can eat tonight, n.p.o. after midnight. In the meantime follow-up TTE. Monitor on telemetry. Requiring IV Dilaudid for pain due to severe pain worsening hypertension as well. Monitor blood pressures. Bowel regimen. DVT prophylaxis with heparin with risk of DVT with immobilization and fracture, orthopedic surgery, hold after next dose. SCD. Buckley catheter in place. Subsequent PT evaluation. Case management consultation for dispo planning. (2) Syncope: Reviewed vitals, CBC, CMP, troponin, UA, chest x-ray, head CT, C-spine CT, hip/pelvis x-ray, ER provider note, discussed with ER provider. EKG reviewed, my interpretation does not have atrial fibrillation, with P waves present, with erroneous machine read. Complete troponin EKG series. Monitor on telemetry for any arrhythmia. Assess TTE. Would benefit from assessment of orthostatics, although currently unable to due to fracture. Assess once able to mobilize. Hold off diuretic for now. Check TSH Plan HTN: Hold lisinopril, HCTZ for now hold at risk of hypotension and orthostasis/dehydration. Given hydralazine for hypertension alongside analgesia. HLD GERD: Continue PPI History of pelvic fractures: Without noted disruption of hardware on pelvic x-ray on review. History of pancytopenia: With anemia, hemoglobin 9. Resume iron supplementation. Collect iron studies. CHeck hemomccult. Hearing loss: Severe hearing loss, but does hear when spoken to loudly. Hypothyroidism: Continue levothyroxine Advanced age PDMP PDMP Reviewed: Not Reviewed Attestations Medical Necessity Statement*: Admission over 2 midnights anticipated for assessment management of right hip fracture after a fall and syncope in a gentleman of advanced age with underlying comorbidities. Diagnoses Fracture of right hip S72.001A Syncope R55
--- NOTE | 2025-02-25 11:30 | ECG_ITS ---
[facility] Test Date: 2025-02-25 Pat Name: Gualberto Guzmán Department: Room: 266 Gender: Male House Fellow: : 1935 Requested By: Leland Connor Order Number: [id number] Reading MD: RAOUL CARRILLO Measurements Intervals [place] Rate: 71 P: 0 [place]: 0 QRS: -35 QRSD: 108 T: 58 QT: 428 QTc: 468 Interpretive Statements Sinus Rythm LEFT AXIS DEVIATION [QRS AXIS < -30] MODERATE VOLTAGE CRITERIA FOR LVH, CONSIDER NORMAL VARIANT [MEETS CRITERIA IN ONE OF: R(aVL), S(V1), R(V5), R(V5/V6)+S(V1)] NONSPECIFIC ST & T-WAVE ABNORMALITY Compared to ECG 02/25/2025 09:49:19 No change since previous ECG performed Electronically Signed On 02-25-2025 19:03:14 CDT by RAOUL CARRILLO [email or web address] [id number]
[2025-02-25] MEDS: HYDROmorphone 0.5 MG/0.5 ML INJ IVP (11:46)
--- NOTE | 2025-02-25 13:39 | USCV_ITS ---
Gualberto Guzmán Age: 89 Gender: M : 1935 Exam Date: 02/25/2025 15:29 Ordering Phys: Johan Hargrove MD Technologist: Adria Ritter [place] [facility] [place]: [place], syncope BP: 173 / 101 HR: 69 Rhythm: Sinus Technical Quality: Suboptimal MEASUREMENTS (Male / Female) Normal Values 2D ECHO LV Diastolic Diameter PLAX 3.0 cm 4.2 - 5.9 / 3.9 - 5.3 cm IVS Diastolic Thickness 1.6 cm 0.6 - 1.0 / 0.6 - 0.9 cm IVS Systolic Thickness 1.4 cm LVPW Diastolic Thickness 1.4 cm 0.6 - 1.0 / 0.6 - 0.9 cm LVPW Systolic Thickness 1.5 cm LVOT Diameter 2.1 cm LV Ejection Fraction 2D Teich 65.9 % LV Ejection Fraction MOD 4C 69.6 % LV Ejection Fraction MOD 2C 69.1 % LV Ejection Fraction 2C AL 68.3 % LA Diameter 4.7 cm RA Systolic Volume 4C AL 56.9 ml RA Systolic Volume 4C MOD 56.5 ml Aorta at Sinotubular Diameter 2.7 cm IVC Diameter 1.9 cm M-MODE LA Ao Ratio MM 1.3 AV Cusp Separation MM 1.8 cm DOPPLER AV Peak Velocity 158.0 cm/s LVOT Peak Velocity 78.0 cm/s AV Area Cont Eq vti 1.9 cm squared AV Area Cont Eq pk 1.7 cm squared MV Peak Velocity 99.0 cm/s MV Area PHT 2.9 cm squared Mitral E to A Ratio 0.7 TR Peak Velocity 379.0 cm/s TR Peak Gradient 57.5 mmHg TR Mean Velocity 307.0 cm/s TR Mean Gradient 41.3 mmHg TR Velocity Time Integral 100.3 cm PV Peak Velocity 115.0 cm/s RV Ejection Time 0.3 s FINDINGS Left Ventricle Normal left ventricular size, systolic function and wall thickness, with no regional wall motion abnormalities. Left ventricular ejection fraction is estimated at 55 %. Grade I/IV diastolic dysfunction (abnormal relaxation filling pattern), normal to mildly elevated filling pressures. Right Ventricle The right ventricle is normal in size and function. Right Atrium The right atrium is normal in size. Left Atrium The left atrium is normal in size. Mitral Valve Moderately thickened mitral valve. Moderate mitral annular calcification. No mitral valve stenosis. Trace mitral valve regurgitation. Aortic Valve Moderate aortic valve calcification. No aortic valve stenosis. Trace aortic valve regurgitation. Tricuspid Valve Structurally normal tricuspid valve without significant stenosis or regurgitation. Pulmonary artery systolic pressure is normal. Pulmonic Valve Structurally normal pulmonic valve without significant stenosis. There is no pulmonic regurgitation. Pericardium Normal pericardium without effusion. Aorta Normal ascending aorta dimension. IVC The inferior vena cava appears normal. CONCLUSIONS Normal left ventricular size, systolic function and wall thickness, with no regional wall motion abnormalities. Left ventricular ejection fraction is estimated at 55 %. Grade I/IV diastolic dysfunction (abnormal relaxation filling pattern), normal to mildly elevated filling pressures. Moderately thickened mitral valve. Moderate mitral annular calcification. No mitral valve stenosis. Trace mitral valve regurgitation. Moderate aortic valve calcification. No aortic valve stenosis. Trace aortic valve regurgitation. There is no pericardial effusion. Right atrial pressure is around 5 mm of mercury. Huan Guerrero MD (Electronically Signed) Final Date: 26 Feb 2025 08:28 S
[2025-02-25] MEDS: heparin 5,000 unit/mL INJ 1 mL 5000 UNIT SUBCUT (14:13)
[2025-02-25] MEDS: hyDRALAzine 20 mg/mL INJ 1 mL 10 MG IVP (14:14)
--- NOTE | 2025-02-25 14:15 | ECG_ITS ---
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1935 Requested By: Leland Connor Order Number: [id number] Reading MD: RAOUL CARRILLO Measurements Intervals [place] Rate: 77 P: 5 [place]: 183 QRS: -34 QRSD: 104 T: 62 QT: 390 QTc: 443 Interpretive Statements SINUS RHYTHM WITH FREQUENT SUPRAVENTRICULAR PREMATURE COMPLEXES LEFT AXIS DEVIATION [QRS AXIS < -30] LEFT VENTRICULAR HYPERTROPHY AND ST-T CHANGE [VOLTAGE CRITERIA PLUS ST/T ABNORMALITY] Compared to ECG 02/25/2025 11:30:10 ST (T wave) deviation now present Atrial fibrillation no longer present T-wave abnormality no longer present Electronically Signed On 02-25-2025 19:07:06 CDT by RAOUL CARRILLO [id number] [id number]
[2025-02-25 14:24] LABS: Troponin 5 6HR 21.38 ng/L (0-15)
[2025-02-25 14:25] LABS: Troponin 5 6HR Delta -6.62 ng/L (0-12)
[2025-02-25 15:15] LABS: Ferritin 26 ng/mL (30-400); Iron 27 ug/dL (59-158); Percent Saturation 7.6 % (20-50); Total Iron Binding Capacity 354 mcg/dl; Unsaturated Iron Binding 327 ug/dL (112-347)
[2025-02-25 15:17] LABS: Thyroid Stimulating Hormone 4.02 uIU/mL (0.27-4.20)
[2025-02-25] MEDS: morphine 4 mg/mL SDV 1 mL IVP ×2 (16:56→23:09)
[2025-02-25 20:54] LABS: Glucose Point of Care 127 mg/dL (70-110)
[2025-02-26] VITALS (23 sets, daily range): BP systolic 112–183; BP diastolic 56–93; PULSE 69–98; RESP 13–20; TEMP 36.3–36.9; O2SAT 91–100; BMI 25.4
[2025-02-26] MEDS: heparin 5,000 unit/mL INJ 1 mL 5000 UNIT SUBCUT (01:09)
[2025-02-26] MEDS: levothyroxine 75 mcg Tablet PO (05:30)
[2025-02-26 05:33] LABS: Basophils % 0.3 %; Hematocrit 27.4 % (37-53); Lymphocytes # 0.6 10^3/uL (0.8-4.8); Lymphocytes % 9.6 %; Mean Corpuscular HGB Conc 29.2 g/dL (30-55); Mean Corpuscular Hemoglobin 25.5 pg (27-33); Mean Corpuscular Volume 87.3 fl (82-101); Mean Platelet Volume 10.9 fL (7.4-10.4); Monocytes # 0.8 10^3/uL (0.2-0.9); Neutrophils # 4.96 10^3/uL (1.8-7.7); Neutrophils % 76.6 %; Nucleated Red Blood Cells % 0 %; Platelet Count 236 10^3/cmm (157-399); Red Blood Count 3.14 10^6/uL (3.85-5.65); White Blood Count 6.47 10^3/uL (3.29-11.43)
[2025-02-26 05:53] LABS: Blood Urea Nitrogen 23 mg/dL (8-23); Carbon Dioxide 24 mmol/L (22-29); Chloride 104 mmol/L (98-107); Creatinine Clr Calc Pharmacy 41.6734; Glucose 122 mg/dL (65-115); Osmolality Calculated 293 mOsm/kg (285-295); Sodium 139 mmol/L (136-145)
[2025-02-26] MEDS: morphine 4 mg/mL SDV 1 mL IVP ×2 (07:07→13:07)
--- NOTE | 2025-02-26 09:57 | P.PN_ITS ---
Subjective 2 Subjective: States he is coming along . Having a lot of pain in the right hip. No trouble breathing or other complaints. Vitals/I&O/Wt Last Vital Signs Temp 98.3 F 02/26/25 07:59 Pulse 98 02/26/25 07:59 Resp 18 02/26/25 07:59 BP 129/63 02/26/25 07:59 Pulse Ox 91 02/26/25 07:59 O2 Del Method Room Air 02/26/25 07:59 02/25/25 02/26/25 02/26/25 22:59 06:59 14:59 Intake Total 240 / 240 Output Total 800 / 800 Balance -560 / -560 Weight last 48 hrs Weight 69.541 kg Weight 69.581 kg Weight 73.936 kg Physical Exam 2 Narrative: Sleeping, wakes up to voice and and squeeze. Very hard of hearing. But hears when spoken to very loudly. Const: GENERAL APPEARANCE: cooperative HENMT: COMMON NORMALS: oropharynx normal Neck/C-Spine: COMMON NORMALS: no JVD Resp: COMMON NORMALS: normal respiratory effort and clear to auscultation bilaterally AUSCULTATION: clear to auscultation bilaterally Cardio: COMMON NORMALS: no JVD, regular rhythm, S1 normal heart sound present, S2 normal heart sound present and No murmurs present (Cardio) RHYTHM: regular rhythm HEART SOUNDS: S1 normal heart sound present and S2 normal heart sound present GI: COMMON NORMALS: Normal to inspection, nondistended, normoactive bowel sounds present, Soft to palpation and non-tender PALPATION: Yes Soft to palpation Extremity: COMMON NORMALS: no joint enlargement and no pedal edema OTHER: everted right lower extremity. Tenderness of the right hip. Neuro: COMMON NORMALS: moves all extremities Skin: COMMON NORMALS: no rashes or lesions noted GENERAL SKIN EXAM: no rashes or lesions noted Urinary Catheter Management: Buckley: Cath Placed During This Visit: yes Reason for Continuing Indwelling Catheter: Other Urinary Catheter Date of Insertion: 02/25/25 Data 02/26/25 04:20 02/26/25 04:20 A&P Assessment and plan (1) Fracture of right hip: Reviewed vitals, CBC, with acute blood loss anemia, hemoglobin down to 8. Will type and screen. Crossmatch 1 unit for now on hold in anticipation of he may end up needing blood transfusion with surgery. Platelets reviewed and normal. Troponin series with mild elevation. Echocardiogram obtained and reviewed, without aortic stenosis. Grade 1 diastolic dysfunction, EF 55%. Trace MVR. Has been requiring IV morphine for pain. SCD for DVT prophylaxis in anticipation of surgery at 4 PM today. DVT prophylaxis with heparin with risk of DVT with immobilization and fracture, orthopedic surgery, hold after next dose. SCD. Buckley catheter in place. Subsequent PT evaluation. Discussed with case management. (2) Syncope: Reviewed troponin series EKG. Reviewed echocardiogram noted normal ejection fraction, grade 1 diastolic function, trace valvular abnormality. No aortic stenosis. Cause of syncope not entirely explained, possibly orthostasis, will need orthostatics checked once possible. Reviewed chemistry, normal. Renal function unchanged. EKG reviewed, my interpretation does not have atrial fibrillation, with P waves present, with erroneous machine read. Monitor on telemetry for any arrhythmia. Hold off diuretic for now. Reviewed TSH, nl Plan HTN: Hold lisinopril, HCTZ for now hold at risk of hypotension and orthostasis/dehydration. Given hydralazine for hypertension alongside analgesia. HLD GERD: Continue PPI History of pelvic fractures: Without noted disruption of hardware on pelvic x- ray on review. History of pancytopenia: With anemia. Resume iron supplementation. Reviewed iron studies. noted iron deficiency anemia and anemia chronic disease. CHeck hemomccult. Hearing loss: Severe hearing loss, but does hear when spoken to loudly. Hypothyroidism: Continue levothyroxine Advanced age PDMP PDMP Reviewed: Not Reviewed Attestations 2 Medical Necessity Statement*: Continue hospitalization for assessment and management of right hip fracture after a fall and syncope, acute on chronic anemia in a gentleman of advanced age with underlying comorbidities. and High MDM includes amount and/or complexity of data reviewed/ordered [ resulted lab(s)/test(s), ordered lab(s)/test(s) and other healthcare professional discussion] and described risk of complication, morbidity or mortality of management as documented Diagnoses Fracture of right hip S72.001A Syncope R55
--- NOTE | 2025-02-26 10:21 | PC.CHAP ---
Pastoral Care Encounter/Spiritual Assessment Type of Contact [] Declined mixer and blender visit [] Patient/Family/Request visit [] Outpatient visit [] Follow-up visit [] Physician referral [] Code/Alert [] Routine visit [] Staff referral [] Actively dying [x] Patient sleeping [] Family support [] [] Out of room [] Palliative care [] [] Receiving care in room [] Pre-surgical visit [] Trauma [] Long length of stay [] ICU visit [] Other: Relational/Emotional Strength [] Patient feels connected with others/family/visitors/staff [] Distress [] Loneliness/isolation [] Abandonment Spirituality of Patient [] Person of [place] [] Attends Uatsdin of their [place] [] Believes in Prayer [] Reads Bible or Advent materials [] There are Spiritual issues to be addressed [employer] Log[employer] Manager Interventions [] Prayer [] Active listening [] Non-anxious presence [] Spiritual/emotional support [] Crisis/trauma care [] Spiritual counseling [] Bereavement support [] Provided bereavement packet [] Provided Bible/devotional materials [] Provided toy/stuffed animal, coloring book to patient or family member [] Provided Communion [] Anointing/[place] [] Salvation [] Completed spiritual assessment [] Other: Impact on Illness or Injury [] Angry [] Fearful [] Anxious [] Often cries [] Exhaustion [] Unable to work [] Unable to attend samaritan [] Unable to walk/stand [] Unable to read [] Unable to drive [] Unable to eat/drink [] Unable to sleep [] Unable to be with family [] Patient intubated [] Other: Summary Time spent with patient
--- NOTE | 2025-02-26 15:32 | ANES.PREANE2 ---
Pre-Anesthetic Assessment Height/Weight: Height 1.65 m Weight 69.4 kg Temp Pulse Resp BP Pulse Ox O2 Del Method 98.1 F 80 18 135/67 93 Room Air 02/26/25 11:58 02/26/25 11:58 02/26/25 13:07 02/26/25 11:58 02/26/25 11:58 02/26/25 14:47 Operation Date: 02/26/25 17:15 Proposed Procedures p Trochanteric Femoral Nail(Right) - Alee Arnold MD Familial anesthetic complications: None Last intake: Intake Last Liquid Date 02/25/25 Last Solid Date 02/25/25 Social No alcohol and No tobacco Exam alert, oriented x 3, clear to auscultation bilaterally and regular rate & rhythm Airway Mallampati: Class III Dentition: other (no teeth) CV/HEM Anemia EKG SINUS RHYTHM WITH FREQUENT SUPRAVENTRICULAR PREMATURE COMPLEXES LEFT AXIS DEVIATION [QRS AXIS < -30] LEFT VENTRICULAR HYPERTROPHY AND ST-T CHANGE [VOLTAGE CRITERIA PLUS ST/T ABNORMALITY] Compared to ECG 02/25/2025 11:30:10 ST (T wave) deviation now present Atrial fibrillation no longer present Eco CONCLUSIONS Normal left ventricular size, systolic function and wall thickness, with no regional wall motion abnormalities. Left ventricular ejection fraction is estimated at 55 %. Grade I/IV diastolic dysfunction (abnormal relaxation filling pattern), normal to mildly elevated filling pressures. Moderately thickened mitral valve. Moderate mitral annular calcification. No mitral valve stenosis. Trace mitral valve regurgitation. Moderate aortic valve calcification. No aortic valve stenosis. Trace aortic valve regurgitation. There is no pericardial effusion. Right atrial pressure is around 5 mm of mercury. GI Gastroesophageal Reflux Disease Metabolic Thyroid Disease Anesthetic Plan ASA status: 3 Anesthesia: General Risk of > 500 ml blood loss (7ml/kg in children): No Medications/Allergies Home Medications ?Medication ?Instructions ?Recorded ?Confirmed ?Last Taken ?Type cholecalciferol (vitamin D3) 25 25 mcg PO DAILY 10/11/22 02/25/25 02/24/25 07:35 History mcg (1,000 unit) capsule fluoxetine 10 mg capsule 10 mg PO DAILY 10/11/22 02/25/25 02/24/25 07:35 History folic acid 1 mg tablet 1 mg PO DAILY 10/11/22 02/25/25 02/24/25 07:35 History mecobalamin (vitamin B12) 1,000 1,000 mcg PO DAILY 10/11/22 02/25/25 02/24/25 07:35 History mcg chewable tablet pantoprazole 40 mg tablet,delayed 40 mg PO DAILY 03/01/23 02/25/25 02/24/25 07:40 History release (Protonix) acetaminophen 325 mg tablet 325 mg PO QID PRN Fever Or Pain 02/25/25 02/25/25 02/20/25 21:35 History (Tylenol) bisacodyl 10 mg rectal suppository 10 mg ID DAILY PRN Constipation 02/25/25 02/25/25 Unknown History (Dulcolax (bisacodyl)) levothyroxine 50 mcg tablet See Rx Instructions .Route .COMPLEX 02/25/25 02/25/25 02/25/25 05:55 History levothyroxine 75 mcg tablet See Rx Instructions .Route .COMPLEX 02/25/25 02/25/25 02/22/25 History lisinopril 10 mg tablet 10 mg PO DAILY 02/25/25 02/25/25 02/24/25 07:40 History magnesium hydroxide 400 mg/5 mL 30 ml PO DAILY PRN Constipation 02/25/25 02/25/25 Unknown History oral suspension (Milk of Magnesia) menthol 4 % topical gel (Biofreeze 1 applic topical QID PRN muscle 02/25/25 02/25/25 02/21/25 19:00 History (menthol)) screnoss mv-mn-folic 200 mcg-vit K 15 1 cap PO BID 02/25/25 02/25/25 02/24/25 15:45 History mcg-lutein 5 mg-zeaxanthin 1 mg capsule (PreserVision AREDS 2 Plus Multivit) sennosides 25 mg tablet 25 mg PO DAILY 02/25/25 02/25/25 02/24/25 History sodium phosphates 19 gram-7 118 ml ID DAILY PRN Constipation 02/25/25 02/25/25 Unknown History gram/118 mL enema (Fleet Enema) Allergies Allergy/AdvReac Type Severity Reaction Status Date / Time No Known Allergies Allergy Verified 12/12/24 11:28 Current Medications Generic Name Dose Route Start Last Admin Trade Name Freq PRN Reason Stop Dose Admin Ferrous Sulfate 325 mg 02/25/25 13:35 02/25/25 13:43 Ferrous Sulfate Ec 325 Mg Tablet PO Not Given On Hold: 02/26/25 14:35 EVERY OTHER DAY JAMSHID Comment: Order held by Process Transfer Folic Acid 1 mg 02/26/25 09:00 02/26/25 08:43 Folic Acid 1 Mg Tablet PO Not Given On Hold: 02/26/25 14:35 DAILY JAMSHID Comment: Order held by Process Transfer Hydralazine HCl 10 mg 02/25/25 14:00 02/25/25 14:14 Hydralazine 20 Mg/Ml Inj 1 Ml IVP 10 mg On Hold: 02/26/25 14:35 Q4H PRN Administration Comment: Order held by Process HYPERTENSION Transfer Levothyroxine Sodium 75 mcg 02/26/25 06:00 02/26/25 05:30 Levothyroxine 75 Mcg Tablet PO 75 mcg On Hold: 02/26/25 14:35 TuFr JAMSHID Administration Comment: Order held by Process Transfer Morphine Sulfate 4 mg 02/25/25 11:58 02/26/25 13:07 Morphine 4 Mg/Ml Sdv 1 Ml IVP 4 mg On Hold: 02/26/25 14:35 Q4H PRN Administration Comment: Order held by Process SEVERE PAIN Transfer Pantoprazole Sodium 40 mg 02/26/25 09:00 02/26/25 08:[address] 40 Mg Tablet PO Not Given On Hold: 02/26/25 14:35 DAILY JAMSHID Comment: Order held by Process Transfer [facility] Anesthesia Medical History (Updated 02/25/25 @ 14:40 by Johan Hargrove MD) Multiple fractures of pelvis with unstable disruption of pelvic ring, subsequent encounter for fracture with routine healing Pancytopenia GERD (gastroesophageal reflux disease) Hyperlipidemia Hypertension Surgical History History of bilateral carpal tunnel release History of inguinal hernia repair History of back surgery History of colonoscopy (~2014) H/O esophagogastroduodenoscopy (10/17/20) Family History Father Cancer Denies family history of Diabetes Social History Smoking and tobacco/nicotine status: never used tobacco/nicotine Household members: spouse Marital status: Current occupational status: retired Data Anesthesia 02/26/25 04:20 02/26/25 04:20 Short CBC 02/25/25 02/26/25 Range/Units 07:45 04:20 WBC 4.10 6.47 (3.29-11.43) 10^3/uL Hgb 9.00 L 8.00 L (11.27-16.99) g/dL Hct 30.5 L 27.4 L (37-53) % MCV 85.7 87.3 (82-101) fl Plt Count 237 236 (157-399) 10^3/cmm Neut % (Auto) 47.8 76.6 % Neut # (Auto) 1.96 4.96 (1.8-7.7) 10^3/uL BMP 02/25/25 02/26/25 07:45 04:20 Sodium 139 139 Potassium 4.1 4.0 Chloride 102 104 Carbon Dioxide 22 24 BUN 19 23 Creatinine 1.1 1.1 Glucose 117 H 122 H Calcium 9.3 9.0 Cardiac Enzymes 02/25/25 02/25/25 02/25/25 Range/Units 07:45 10:22 13:45 Troponin T Baseline 28 H (0-15) ng/L Troponin T 120 Minute 22.57 H (0-15) ng/L Delta Troponin T -5.43 L (0-10) ABS# Troponin T Hi Sens 6Hr 21.38 H (0-15) ng/L Troponin T Hi Sens 6Hr Delta -6.62 L (0-12) ng/L Liver Function 02/25/25 Range/Units 07:45 Total Bilirubin 0.4 (0.15-1.2) mg/dL AST 25 (0-40) U/L ALT 16 (0-41) U/L Alkaline Phosphatase 79 (40-130) U/L Albumin 4.3 (3.5-5.2) g/dL Urine 02/25/25 Range/Units 10:14 Urine Color Yellow (Yellow) Urine Appearance Clear (CLEAR) Urine pH 6.5 (5-7) Ur Specific [place] 1.013 (1.005-1.030) Urine Protein Trace A (Negative) Urine Glucose (UA) Negative (Normal) Urine Ketones Negative (Negative) Urine Nitrate Negative (Negative) Urine Bilirubin Negative (Negative) Ur Leukocyte Esterase Negative (Negative) Urine RBC 0-2 (0-2) /hpf Urine WBC 0-5 (0-5) /hpf Blood Bank 02/26/25 12:17 Blood Type A Negative Rho(D) Type Rh negative Antibody Screen Negative Cardiac Studies: Echocardiogram 02/25/25
[2025-02-26] MEDS: sodium chloride 0.9% 1,000 ML 30 ML IV (15:39)
--- NOTE | 2025-02-26 15:46 | PM.CONSULT ---
Providers/Reason For Consult Consulting Physician/Specialty*: Alee Arnold MD Reason for Consult*: Right intertrochanteric hip fracture Requesting Physician: Dr. Leland Shrestha Attending Physician: Johan Hargrove Primary Care Provider: Kanu Taylor MD History of Present Illness History of Present Illness Gualberto Guzmán is a 89 year old male with multiple medical issues including hypertension, anemia, hyperlipidemia, prior pelvic fractures as well as pubic ramus fractures. Patient recently has had a history of fainting episodes with the most recent episode occurring approximately 1 week prior to admission. Most of these incidences occurred when the patient was using the restroom. He denied any other reason for his fall. The patient fell onto his right hip and was unable to ambulate. Previously, the patient notes that he walks up to 8 miles a day. Review of Systems Const: Denies: fever(s), chills, body aches or malaise ENMT: Denies: throat pain Card: Reports: lightheadedness (with standing); Denies: chest pain, edema, pre-syncope or dyspnea on exertion Resp: Denies: dyspnea, productive cough, change in phlegm color or hemoptysis GI: Denies: abdominal pain, nausea, vomiting, diarrhea, constipation, hematochezia or melena : Denies: flank pain, difficulty urinating, dysuria, urinary frequency, urinary urgency or hematuria Musc: Reports: joint pain (R hip); Denies: neck pain, back pain, joint swelling or joint redness Skin/Breast: Denies: rash or new lesions Neuro: Denies: headache(s) or confusion Medications/Allergies Home Medications ?Medication ?Instructions ?Recorded ?Confirmed ?Last Taken ?Type cholecalciferol (vitamin D3) 25 25 mcg PO DAILY 10/11/22 02/25/25 02/24/25 07:35 History mcg (1,000 unit) capsule fluoxetine 10 mg capsule 10 mg PO DAILY 10/11/22 02/25/25 02/24/25 07:35 History folic acid 1 mg tablet 1 mg PO DAILY 10/11/22 02/25/25 02/24/25 07:35 History mecobalamin (vitamin B12) 1,000 1,000 mcg PO DAILY 10/11/22 02/25/25 02/24/25 07:35 History mcg chewable tablet pantoprazole 40 mg tablet,delayed 40 mg PO DAILY 03/01/23 02/25/25 02/24/25 07:40 History release (Protonix) acetaminophen 325 mg tablet 325 mg PO QID PRN Fever Or Pain 02/25/25 02/25/25 02/20/25 21:35 History (Tylenol) bisacodyl 10 mg rectal suppository 10 mg AK DAILY PRN Constipation 02/25/25 02/25/25 Unknown History (Dulcolax (bisacodyl)) levothyroxine 50 mcg tablet See Rx Instructions .Route .COMPLEX 02/25/25 02/25/25 02/25/25 05:55 History levothyroxine 75 mcg tablet See Rx Instructions .Route .COMPLEX 02/25/25 02/25/25 02/22/25 History lisinopril 10 mg tablet 10 mg PO DAILY 02/25/25 02/25/25 02/24/25 07:40 History magnesium hydroxide 400 mg/5 mL 30 ml PO DAILY PRN Constipation 02/25/25 02/25/25 Unknown History oral suspension (Milk of Magnesia) menthol 4 % topical gel (Biofreeze 1 applic topical QID PRN muscle 02/25/25 02/25/25 02/21/25 19:00 History (menthol)) screnoss mv-mn-folic 200 mcg-vit K 15 1 cap PO BID 02/25/25 02/25/25 02/24/25 15:45 History mcg-lutein 5 mg-zeaxanthin 1 mg capsule (PreserVision AREDS 2 Plus Multivit) sennosides 25 mg tablet 25 mg PO DAILY 02/25/25 02/25/25 02/24/25 History sodium phosphates 19 gram-7 118 ml AK DAILY PRN Constipation 02/25/25 02/25/25 Unknown History gram/118 mL enema (Fleet Enema) Allergies Allergy/AdvReac Type Severity Reaction Status Date / Time No Known Allergies Allergy Verified 12/12/24 11:28 Current Medications Generic Name Dose Route Start Last Admin Trade Name Freq PRN Reason Stop Dose Admin Ferrous Sulfate 325 mg 02/25/25 13:35 02/25/25 13:43 Ferrous Sulfate Ec 325 Mg Tablet PO Not Given On Hold: 02/26/25 14:35 EVERY OTHER DAY JAMSHID Comment: Order held by Process Transfer Folic Acid 1 mg 02/26/25 09:00 02/26/25 08:43 Folic Acid 1 Mg Tablet PO Not Given On Hold: 02/26/25 14:35 DAILY JAMSHID Comment: Order held by Process Transfer Hydralazine HCl 10 mg 02/25/25 14:00 02/25/25 14:14 Hydralazine 20 Mg/Ml Inj 1 Ml IVP 10 mg On Hold: 02/26/25 14:35 Q4H PRN Administration Comment: Order held by Process HYPERTENSION Transfer Sodium Chloride 1,000 mls @ 30 mls/hr 02/26/25 15:45 02/26/25 15:39 Sodium Chloride 0.9% IV 02/27/25 15:44 30 mls/hr .Q24H JAMSHID Administration Levothyroxine Sodium 75 mcg 02/26/25 06:00 02/26/25 05:30 Levothyroxine 75 Mcg Tablet PO 75 mcg On Hold: 02/26/25 14:35 TuFr JAMSHID Administration Comment: Order held by Process Transfer Morphine Sulfate 4 mg 02/25/25 11:58 02/26/25 13:07 Morphine 4 Mg/Ml Sdv 1 Ml IVP 4 mg On Hold: 02/26/25 14:35 Q4H PRN Administration Comment: Order held by Process SEVERE PAIN Transfer Pantoprazole Sodium 40 mg 02/26/25 09:00 02/26/25 08:[address] 40 Mg Tablet PO Not Given On Hold: 02/26/25 14:35 DAILY JAMSHID Comment: Order held by Process Transfer PFSH Acute PFSH: Medical History (Updated 02/26/25 @ 15:53 by Alee Arnold MD) Multiple fractures of pelvis with unstable disruption of pelvic ring, subsequent encounter for fracture with routine healing Pancytopenia GERD (gastroesophageal reflux disease) Hyperlipidemia Hypertension Surgical History History of bilateral carpal tunnel release History of inguinal hernia repair History of back surgery History of colonoscopy (~2014) H/O esophagogastroduodenoscopy (10/17/20) Family History Father Cancer Denies family history of Diabetes Social History Smoking and tobacco/nicotine status: never used tobacco/nicotine Household members: spouse Marital status: Current occupational status: retired Vitals/I&O/Wt Last Vital Signs Temp 98.1 F 02/26/25 11:58 Pulse 80 02/26/25 11:58 Resp 18 02/26/25 13:07 BP 135/67 02/26/25 11:58 Pulse Ox 93 02/26/25 11:58 O2 Del Method Room Air 02/26/25 14:47 02/26/25 02/26/25 02/26/25 06:59 14:59 22:59 Output Total 200 / 200 Balance -200 / -200 Weight last 48 hrs Weight 153 lb Weight 153 lb 5 oz Weight 153 lb 6.4 oz Weight 163 lb Physical Exam Const: COMMON NORMALS: no acute distress, average body habitus and alert GENERAL APPEARANCE: cooperative and comfortable ORIENTATION/CONSCIOUSNESS: Yes awake and Yes Other orientation findings (Somnolent) HENMT: COMMON NORMALS: normocephalic and atraumatic HEAD & SCALP: normocephalic and atraumatic Eye: GENERAL EYE: appearance normal, both eyes and all related structures Chest: COMMONS NORMALS: normal inspection of the chest Resp: COMMON NORMALS: normal respiratory effort EFFORT & INSPECTION: Yes able to speak in complete sentences and Yes symmetric chest movement Extremity: RIGHT LOWER EXTREMITY: Yes hip joint (Note significant ecchymosis) Right hip: Yes inspection (No significant swelling), Yes ROM (Not evaluated secondary to pain) and Yes neurovascular exam (Intact distally) Neuro: SENSORIUM/ORIENTATION: Yes alert Psych: COMMON NORMALS: mental status grossly normal APPEARANCE: Yes grossly normal ATTITUDE: Yes calm and Yes engaged ATTENTION/CONCENTRATION: Yes attention grossly intact Skin: COMMON NORMALS: no rashes or lesions noted GENERAL SKIN EXAM: no rashes or lesions noted Urinary Catheter Management: [place]: Cath Placed During This Visit: yes Reason for Continuing Indwelling Catheter: Other Urinary Catheter Date of Insertion: 02/25/25 Data 02/26/25 04:20 02/26/25 04:20 Xray Ortho: My impression: Patient has 2 views of the patient's right hip. There is a comminuted intertrochanteric hip fracture with extension into the subtrochanteric area. Lesser troches also involved. There is prior evidence of sacroiliac screw and plating of the pubic symphysis. A&P Assessment and plan (1) Closed intertrochanteric fracture of right hip: This 89-year-old gentleman presented after a fall at home onto his right side. X-rays demonstrated a right intertrochanteric hip fracture. After discussion with the patient and family, we have elected to proceed with open reduction internal fixation using a gamma trochanteric nail. Risks and complications are discussed with the patient's family, and consents were signed. [id number], who is the power of associate attorney, gave consent by phone after significant surgical discussion. Questions were answered at that time. Patient will likely require senior care at the time of discharge. PDMP PDMP Reviewed: Not Reviewed Coding Level of Care Code Acute Code for Chg Fwd Diagnoses Closed displaced intertrochanteric fracture of right femur, initial encounter S72.141A Encounter type: initial encounter Fracture alignment: displaced
[2025-02-26] MEDS: fentaNYL 50 mcg/mL INJ 2mL IVP (16:10)
[2025-02-26] MEDS: acetaminophen 1,000 MG/100 ML PIGGYBACK 400 MG IV (16:10)
[2025-02-26] MEDS: ceFAZolin 2,000 mg SDV 2000 MG IVP (16:39)
[2025-02-26] MEDS: tranexamic acid 1,000 mg/10mL SDV 1000 MG IV (16:51)
[2025-02-26] MEDS: ceFAZolin 1,000 mg SDV 1000 MG IRRIGATION (17:05)
[2025-02-26] MEDS: BUPivacaine-epi 0.5% 10 ML INJ 30 ML INJECTION (17:55)
--- NOTE | 2025-02-26 18:22 | XR_ITS ---
WS: [id number] Right hip, C-arm fluoroscopy views, 02/26/2025 Clinical Data: OR PIC, ORIF HIP Comparison: Right hip, 02/25/2025 Findings: Dr. Arnold repaired the intertrochanteric fracture of the right hip with an oblique screw and proximal anterior trochanteric aron. XR/XR hip RT 2-3V wo/w pel* [id number] Impression: Internal fixation of right intertrochanteric hip fracture.
--- NOTE | 2025-02-26 18:48 | P.OP_ITS ---
Operative Report Date of procedure: February 26, 2025 Pre-op diagnosis: Right intertrochanteric hip fracture Post-op diagnosis: Comminuted angulated right intertrochanteric hip fracture Post-op findings: Significant comminution and instability at the fracture site Procedure done: Open reduction internal fixation right intertrochanteric hip fracture Implants: [place] gamma 3 trochanteric nail size 11 mm x 180 mm x 125 degrees with a 10.5 mm x 105 mm proximal lag screw and a distal locking screw size 5 mm x 30 mm Specimens removed/disposition: None Pathology: None Surgeon: Alee Arnold MD Calender Let Off Helper: None Anesthesia: General (Per LMA, ASA 3) Estimated blood loss (mL): 50 IV fluids (mL): 600 Urine output (mL): 300 Complications: None Findings: Fracture site instability with comminution and angulation Condition: stable Disposition: PACU (Then return to floor for postoperative rehabilitation and pain management) Brief History: This 89-year-old gentleman was in his usual state of health with multiple medical comorbidities when he fell prior to admission while using the restroom. The patient notes a history of recent fainting episodes while in the restroom. He denied any other reason for his fall. The patient fell onto his right side and was unable to ambulate. He presented to the emergency department and x-rays demonstrated a intertrochanteric hip fracture. Discussion was undertaken with the patient's power of trial attorney which included his [id number] Celi. Consents were verbally obtained. Risks and complications were discussed and opportunity was given for answering of questions. Procedure: Patient was brought to the operating theater. After undergoing adequate general anesthesia per LMA, ASA 3, the patient was transferred to the fracture table, positioned on the table and fluoroscopic guidance obtained throughout the surgical procedure. Prior to the commencement of the surgical procedure, a surgical pause was performed. At the time of the surgical pause, we confirmed the site and side of surgery as well as preoperative surgical markings and appropriate and timely administration of IV antibiotics, Ancef 2 g. Availability of equipment was also confirmed. Fluoroscopy was used to confirm the fracture was appropriately reduced in both AP and lateral planes. An incision was then made slightly above the greater trochanter to allow access to the greater trochanter. An awl was used to enter the greater trochanter and a guidewire was subsequently placed. Once the guidewire was confirmed to be in appropriate position in AP and lateral planes, reaming was accomplished over this to allow for the proximal diameter of the nail. Guidewire was then removed. An 11 mm x 180 mm x 125 degree gamma 3 trochanteric nail was placed into appropriate position with positioning being confirmed in AP and lateral planes on the x-ray. The nail was difficult to pass, and we removed it to ream to a 12.5 mm reamer to allow the 11 mm nail to pass. Following reaming, it passed uneventfully. Position was confirmed utilizing fluoroscopy. Guidewire was then passed through the jigging system into the femoral head. We wanted to be center or slightly inferior and posterior to center. Guidewire was placed into appropriate position. Once the guidewire was in appropriate position and this position was confirmed by x-ray, it was then measured and we chose a 10.5 mm by 100 mm lag screw. We reamed to allow for the lag screw to be placed. The 100 mm lag screw was then passed into the femoral head through the trochanteric nail. This was passed uneventfully and again position was confirmed in AP and lateral planes. Compression was obtained under fluoroscopic guidance. The set screw was then placed in position, tightened completely, and subsequently backed off one-eighth turn. The construct was left in position and attention was directed distally. Cannulas were again used to determine appropriate placement for the distal screw. This was placed in position without difficulty. It was measured off of the drill. The appropriate length screw was then obtained and placed in position without difficulty. Once the screw was in position, we confirmed appropriate placement of the components, and we removed the jigging system. Attention was then directed to closure. The hip was copiously irrigated with normal saline with antibiotics. Following this it was dried and closed. Tensor fascia bakari was closed proximally with 0 Vicryl in an interrupted fashion. Subcutaneous tissues were closed with 2-0 Monocryl, and the skin was closed with a continuous 3-0 Monocryl subcuticular stitch. This was then covered with Prineo and OpSite. The patient was removed from the fracture table and returned to recovery in satis factory condition. The patient will be discharged to the floor for postoperative rehabilitation and pain management. There were no specimens obtained. Related Problem List Diagnoses (1) Closed intertrochanteric fracture of right hip:
--- NOTE | 2025-02-26 18:50 | ANE.PACU2 ---
Inpatient post-anesthesia follow up: Airway intact: Yes Vital signs: Temperature 98.8 F Pulse Rate 81 Respiratory Rate 17 Blood Pressure 142/90 Pulse Oximetry 93 Oxygen Delivery Me thod Room Air Oxygen Flow Rate 1 Fraction of Inspir ed Oxygen Hydration adequate: Yes Nausea and vomiting: No Pain level: 1 Mental status: Baseline
--- NOTE | 2025-02-26 19:04 | PC.NURSE ---
1855 - accepted into room 266 with noc shift nurse at side - 02 2LNC 97% - pulse 80 149/91 - temp 97.7 - pt in no distress upon this nurse exiting care
--- NOTE | 2025-02-26 19:30 | ANES.PROC ---
Anesthesia Procedures Procedure/Date: 02/26/25 Nerve Block ^: Nerve Block 1: Main Anesthesia: general anesthesia Time Out Performed: Yes (ID, agx, site, labs, local, consent, anticoagulation) Consent: from other (daughter) and risks and benefits reviewed Nerve block location: other (MYLES) Anesthesia monitors applied: pulse oximetry, EKG, BP cuff and oxygen Nerve block position: supine Anesthetic Used: other (Ropiv 0.25%) Amount of anesthesia used (mL): 20 Ultrasound used to: recognize landmarks and other (AIIS, psoas tendon, femoral artery and nerve.) Nerve Stimulator Used?: No Injection: neg aspiration of heme Patient Tolerated Procedure: well and no complications
[2025-02-26] MEDS: OLANZapine 5 mg ODT 2.5 MG PO (20:34)
[2025-02-26] MEDS: oxyCODONE 5 mg IR Tab/Cap PO (22:24)
[2025-02-27] VITALS (42 sets, daily range): BP systolic 117–176; BP diastolic 62–98; PULSE 62–96; RESP 15–28; TEMP 36.6–37.7; O2SAT 90–97
[2025-02-27] MEDS: ceFAZolin 2,000 mg SDV 2000 MG IVP ×3 (00:03→16:44)
[2025-02-27 05:28] LABS: Basophils % 0.1 %; Hematocrit 23.8 % (37-53); Lymphocytes # 0.5 10^3/uL (0.8-4.8); Lymphocytes % 6.2 %; Mean Corpuscular Hemoglobin 25.6 pg (27-33); Mean Corpuscular Volume 88.1 fl (82-101); Monocytes % 12.4 %; Neutrophils # 6.51 10^3/uL (1.8-7.7); Neutrophils % 80.8 %; Nucleated Red Blood Cells % 0 %; Platelet Count 210 10^3/cmm (157-399); White Blood Count 8.06 10^3/uL (3.29-11.43)
[2025-02-27] MEDS: levothyroxine 50 mcg Tablet PO (05:31)
[2025-02-27 05:50] LABS: Blood Urea Nitrogen 31 mg/dL (8-23); Calcium 8.9 mg/dL (8.5-10.5); Carbon Dioxide 22 mmol/L (22-29); Chloride 105 mmol/L (98-107); Creatinine Clr Calc Pharmacy 40.2467; Glucose 130 mg/dL (65-115); Osmolality Calculated 298 mOsm/kg (285-295); Sodium 140 mmol/L (136-145)
--- NOTE | 2025-02-27 10:06 | PC.CHAP ---
Pastoral Care Encounter/Spiritual Assessment Type of Contact [] Declined director work visit [] Patient/Family/Request visit [] Outpatient visit [] Follow-up visit [] Physician referral [] Code/Alert [] Routine visit [] Staff referral [] Actively dying [x] Patient sleeping [] Family support [] [] Out of room [] Palliative care [] [] Receiving care in room [] Pre-surgical visit [] Trauma [] Long length of stay [] ICU visit [] Other: Relational/Emotional Strength [] Patient feels connected with others/family/visitors/staff [] Distress [] Loneliness/isolation [] Abandonment Spirituality of Patient [] Person of [place] [] Attends Jain of their [place] [] Believes in Prayer [] Reads Bible or Mandaeism materials [] There are Spiritual issues to be addressed Lpn Care Manager Interventions [] Prayer [] Active listening [] Non-anxious presence [] Spiritual/emotional support [] Crisis/trauma care [] Spiritual counseling [] Bereavement support [] Provided bereavement packet [] Provided Bible/devotional materials [] Provided toy/stuffed animal, coloring book to patient or family member [] Provided Communion [] Anointing/[place] [] Salvation [] Completed spiritual assessment [] Other: Impact on Illness or Injury [] Angry [] Fearful [] Anxious [] Often cries [] Exhaustion [] Unable to work [] Unable to attend restorationist [] Unable to walk/stand [] Unable to read [] Unable to drive [] Unable to eat/drink [] Unable to sleep [] Unable to be with family [] Patient intubated [] Other: Summary Time spent with patient
--- NOTE | 2025-02-27 10:18 | PC.OT ---
OT orders received. Chart reviewed. Patient currently waiting for blood transfusion with low HGB of 6.90 at last blood draw. Not a therapeutic level. Will complete evaluation when appropriate.
--- NOTE | 2025-02-27 10:52 | CT_ITS ---
WS: [id number] CT HEAD NONCONTRAST HISTORY: STROKE SYMPTOMS TECHNIQUE: Contiguous axial imaging performed through the brain. Bone and soft tissue windows. Sagittal and coronal reformats reviewed. All CT scans at [facility] use at least one of these dose optimization techniques: automated exposure control; mA and/or kV adjustment per patient size (includes targeted exams where dose is matched to clinical indication); or iterative reconstruction. DLP: 2389 mGy COMPARISON: 02/25/2025 No acute intracranial hemorrhage, midline shift or mass effect. Moderate to severe atrophy and small vessel disease. Confluent low-attenuation throughout the white matter and through the basal ganglia. Moderate cerebellar atrophy. Ventricles: Ventricles and extra-axial spaces are prominent on the basis of atrophy. Severe calcification in the vertebral, intracranial carotid and middle cerebral arteries. Extensive plaque noted. Paranasal sinuses: As visualized are clear. Mastoid air cells: Well pneumatized. Calvarium and scalp: Skull is intact with no soft tissue edema or swelling. CT/CT head thrombolytic 01970 IMPRESSION: 1. No acute intracranial hemorrhage or edema. 2. Advanced atrophy and small vessel disease. 3. No skull fracture. 4. Severe atherosclerotic calcification throughout the [place]. Notified Johan Hargrove MD at 02/27/2025 11:10 AM.
--- NOTE | 2025-02-27 11:14 | CT_ITS ---
WS: [id number] CT ANGIOGRAM CEREBRAL AND CAROTID ARTERIES HISTORY: STROKE SYMPTOMS TECHNIQUE: CT angiogram is performed of the carotid and cerebral arteries. During arterial injection imaging is obtained from the skull vertex to the aortic arch in 1.25 mm imaging. Coronal and sagittal reformats are submitted. Additional multi planar reformats of the carotid and cerebral arteries are submitted, MIP imaging also reviewed. NASCET criteria utilized. All CT scans at [facility] use at least one of these dose optimization techniques: automated exposure control; mA and/or kV adjustment per patient size (includes targeted exams where dose is matched to clinical indication); or iterative reconstruction. CONTRAST: Omnipaque 350; 100 mL IV. DLP: 2389.38 mGy COMPARISON: None available. Carotid Angiogram: Right carotid: Common carotid artery: Ectatic innominate and common carotid artery. Internal carotid artery: Near circumferential plaque at the bifurcation. Nearly occluded RIGHT ICA. There is a string sign present throughout the majority of the cervical ICA. Large amount of calcified plaque in the proximal ICA. No string sign identified through the skull base within the ICA. External carotid artery: Patent with plaque. Left carotid: Common carotid artery: Arises normally from the aorta. No significant plaque or stenosis. Stenosis estimated at less than 50%. External carotid artery: Patent. Right vertebral artery: Small caliber RIGHT vertebral artery is intermittently visualized. The proximal vertebral artery is not opacified. Very small caliber distal vertebral artery. Left vertebral artery: LEFT vertebral artery is dominant. Calcification in the vertebral arteries at the foramen magnum but no complete occlusion. Subclavian arteries: No stenosis or significant abnormality. Upper thorax: Normal. Thyroid gland: Normal. Osseous structures: Advanced degenerative changes in the cervical spine. CEREBRAL ANGIOGRAM: Intracranial vertebral arteries: Very small caliber distal RIGHT vertebral artery. Dominant LEFT vertebral artery is patent. Basilar artery: Scattered plaque in the basilar artery. Distal basilar artery stenosis. Intracranial Internal carotid arteries: Dense calcified plaque in the intracranial LEFT vertebral artery. Occluded distal RIGHT vertebral artery. Middle cerebral arteries: Very heavily calcified plaque in the middle cerebral arteries. Arteries are tortuous. There is contrast enhancement within the RIGHT MCA due to an intact [place] of [place]. RIGHT M1 and M2 segments are smaller caliber. There is a focal stenosis in the distal LEFT M1 segment also. Anterior cerebral arteries and ACOM: Occluded or absent RIGHT A1 segment. Posterior cerebral arteries and PCOM's: Small caliber bilateral posterior cerebral arteries. P1 and P2 segments are small. Dural venous sinuses are normally enhancing. CT/CT angio headneck* 70336/[id number] IMPRESSION: 1. 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 2. Extensive calcification within the LEFT ICA but stenosis less than 50%. 3. Diffusely very small caliber RIGHT vertebral artery intermittently visualiz ed due to plaque and atherosclerotic disease. 4. High-grade stenosis distal basilar artery. 5. Dense calcified plaque in the intracranial LEFT carotid artery. 6. Atherosclerotic plaque with high-grade stenosis in the M1 segments. Small c aliber distal M2 segments due to limited flow. 7. Small bilateral posterior cerebral arteries. 8. Occluded or hypoplastic RIGHT A1 segment.
[2025-02-27] MEDS: iohexol 350 mg/mL 500 mL Btl (per mL) IV (11:16)
[2025-02-27 11:26] LABS: Glucose Point of Care 149 mg/dL (70-110)
[2025-02-27] MEDS: tenecteplase 50mg Kit (STROKE) 50 MG (11:33)
--- NOTE | 2025-02-27 11:40 | USCV_ITS ---
Gualberto Guzmán Age: 89 Gender: M : 1935 Exam Date: 02/27/2025 14:32 Ordering Phys: Johan Hargrove MD Technologist: [place] [facility] [place]: cva BP: / HR: Rhythm: Sinus Technical Quality: Adequate MEASUREMENTS (Male / Female) Normal Values FINDINGS Left Ventricle Normal left ventricular size, systolic function and wall thickness, with no regional wall motion abnormalities. Left ventricular ejection fraction is estimated at 55 %. Right Ventricle Right Atrium Left Atrium Mitral Valve Aortic Valve Tricuspid Valve Pulmonic Valve Pericardium Aorta IVC CONCLUSIONS Normal left ventricular size, systolic function and wall thickness, with no regional wall motion abnormalities. Left ventricular ejection fraction is estimated at 55 %. No intracardiac shunt noted, bubble study is negative Huan Guerrero MD (Electronically Signed) Final Date: 27 Feb 2025 18:22 S
--- NOTE | 2025-02-27 11:51 | PM.PN ---
Subjective Subjective: Seen this morning around 8:15 in the morning, at that time he is reporting he is doing all right. Having some pain in his right hip. Berakfast tray in front of him but not very hungry. Nursing staff reporting on and off confusion. Vitals/I&O/Wt Last Vital Signs Temp 98.4 F 02/27/25 11:34 Pulse 84 02/27/25 11:34 Resp 17 02/27/25 11:34 BP 138/91 02/27/25 11:34 Pulse Ox 93 02/27/25 11:34 O2 Del Method Room Air 02/27/25 11:34 O2 Flow Rate 1 02/26/25 20:36 02/26/25 02/27/25 02/27/25 22:59 06:59 14:59 Intake Total 150 / 150 240 / 390 240 / 240 Output Total 650 / 850 300 / 1150 Balance -500 / -700 -60 / -760 240 / 240 Weight last 48 hrs Weight 64.002 kg Weight 69.4 kg Weight 69.541 kg Weight 69.581 kg Physical Exam Const: COMMON NORMALS: patient oriented x3 and alert GENERAL APPEARANCE: cooperative ORIENTATION/CONSCIOUSNESS: Yes awake HENMT: COMMON NORMALS: oropharynx normal Neck/C-Spine: COMMON NORMALS: no JVD Resp: COMMON NORMALS: normal respiratory effort and clear to auscultation bilaterally AUSCULTATION: clear to auscultation bilaterally Cardio: COMMON NORMALS: no JVD, regular rhythm, S1 normal heart sound present, S2 normal heart sound present and No murmurs present (Cardio) RHYTHM: regular rhythm HEART SOUNDS: S1 normal heart sound present and S2 normal heart sound present GI: COMMON NORMALS: Normal to inspection, nondistended, normoactive bowel sounds present, Soft to palpation and non-tender PALPATION: Yes Soft to palpation Extremity: COMMON NORMALS: no joint enlargement and no pedal edema NARRATIVE EXTREMITY EXAM: Surgical dressing right hip, without bruising, swelling, erythema, or bleeding. Neuro: COMMON NORMALS: patient oriented x3 and moves all extremities SENSORIUM/ORIENTATION: Yes alert OTHER: On reassessment exam after stroke code called, with noted left-sided facial droop, moderate dysarthria, exam is difficult due to being very hard of hearing. Appears to be tracking both sides, visual dominique grossly intact. Sensation symmetrical, left side sensory extinction. No effort left arm or leg against gravity. Skin: COMMON NORMALS: no rashes or lesions noted GENERAL SKIN EXAM: no rashes or lesions noted Urinary Catheter Management: Buckley: Cath Placed During This Visit: yes, but has since been removed by the nurse Reason for Continuing Indwelling Catheter: Decision to DC Catheter Urinary Catheter Date of Insertion: 02/25/25 Date Urinary Catheter Removed: 02/27/25 Time Urinary Catheter Discontinued: 05:34 Data 02/27/25 04:15 02/27/25 04:15 A&P Assessment and plan (1) Acute CVA (cerebrovascular accident): This morning on nursing reassessment found with new left side facial droop, dysarthria, left side upper and lower flaccid weakness. I had seen him about 815 earlier this morning. Last known normal was around 840 when seen by his nurse. Stroke code was called with triggered CT head and neurology consultation. He underwent urgent CT head, on my assessment NIHSS 13. No bleeding on CT head, noted severe atherosclerotic calcification of the [place], old small strokes. No hypoglycemia on POC glucose check. Consideration given to TNK. Neurology further discussed with [facility] surgery. Discussed with his family with regards to risk-benefit and alternative, without treatment likely persistent deficits, posttreatment possible improvement, however, with risk of bleeding, likely bleeding due to recent surgery, risk of intracranial and other bleeding as well. Patient currently verbalized understanding and agreement to proceed. Received TNK at 1133, bed secured in ICU, transferred for continued care. Repeat CT requested. Continue follow-up post TNK reassessments. Permissive hypertension. Aspirin held for 24 hours. N.p.o. with IV fluid pending speech therapy assessment with facial droop and moderate dysarthria. CTA head was obtained at the same time as head CT and pending read. As per discussion with family he is so far not showing improvement in his symptoms. Further assessment is requested with lipid profile, A1c, echocardiogram. Continue to monitor on telemetry, so far without atrial fibrillation. Pending PT and OT assessment. Family reinforced that his CODE STATUS is DNR. (2) Fracture of right hip: Reviewed vitals, CBC, BMP, noted acute blood loss anemia, hemoglobin down to 6.9 this morning. Discussed with him risk, benefit alternative, and requested 1 unit RBC transfusion, monitor for risk of transfusion reaction, acute circulatory overload. Repeat hemoglobin a couple hours after transfusion complete. Discussed with his family at risk of bleeding and further blood loss anemia with TNK. Follow-up repeat blood counts, may require additional transfusion. Status post ORIF right hip fracture. Continue Buckley in place for now. Has been requiring IV morphine for pain. SCD for DVT prophylaxis post TNK. DVT prophylaxis with heparin with risk of DVT with immobilization and fracture, orthopedic surgery, hold after next dose. Buckley catheter in place. Subsequent PT evaluation. Discussed with case management. (3) Syncope: Obtain orthostatics once able to. Permissive hypertension at current time. Reviewed troponin series EKG. Reviewed echocardiogram noted normal ejection fraction, grade 1 diastolic function, trace valvular abnormality. No aortic stenosis. Cause of syncope not entirely explained, possibly orthostasis, will need orthostatics checked once possible. Reviewed chemistry, normal. Renal function unchanged. EKG reviewed, my interpretation does not have atrial fibrillation, with P waves present, with erroneous machine read. Monitor on telemetry for any arrhythmia. Hold off diuretic for now. Reviewed TSH, nl Plan HTN: Permissive hypertension at current time. Hold antihypertensives. HLD GERD: Continue PPI History of pelvic fractures: Without noted disruption of hardware on pelvic x-ray on review. History of pancytopenia: With anemia. Resume iron supplementation. Reviewed iron studies. noted iron deficiency anemia and anemia chronic disease. CHeck hemomccult. Hearing loss: Severe hearing loss, but does hear when spoken to loudly. Hypothyroidism: Continue levothyroxine Advanced age PDMP PDMP Reviewed: Not Reviewed Attestations Medical Necessity Statement*: Continue admission for assessment management after acute CVA, right hip fracture and repair. Coding Level of Care Code Critical Care >/= 30 minutes Critical care time (in minutes): 50 The high probability of a clinically significant, sudden or life threatening deterioration, as referenced in this documentation, required my full and direct attention, intervention and personal management. The critical care time shown is in addition to time spent performing any reported separately billable procedures and includes the following: [x] Data and vital sign review and interpretation [x] Patient assessment, examination and intervention [x] Medication orders and management [x] Patient/Family updates as able [x] Care Coordination and Documentation. Diagnoses Acute CVA (cerebrovascular accident) I63.9 Fracture of right hip S72.001A Syncope R55
--- NOTE | 2025-02-27 11:56 | PC.NURSE ---
Received from med surg via bed post stroke alert and TNkase administration. Neuro checks done and NIH stroke scale performed. left side facial droop noted, slurred speech, flaccid on left side complete hemineglect to left side. V/S stable. No acute distress noted. Daughter at bedside, Dr. Hargrove to bedside to speak with daughter.
--- NOTE | 2025-02-27 11:56 | PC.OT ---
OT eval held due to being transferred to ICU
[2025-02-27] MEDS: lactated ringers 1,000 ML 75 ML IV (12:28)
--- NOTE | 2025-02-27 13:26 | PM.CCNAC ---
Critical Care Event Note Responded to code stroke called up on MedSurg floor in room 266 at 10:50 AM. On examination patient having acute left sided upper limb and lower limb weakness, facial drooping and slurred speech. Last well-known at 10:40 AM. Weakness noted by the RN taking care of the patient. Patient is following directions, able to communicate. Is hard of hearing. Blood sugar checked?140s Blood pressure 138/62 mmHg Examination: Patient confused, following simple direction, hard of hearing Left upper limb and lower limb power 2/5, right upper limb?3/5. Lower limb right side not examined because he is postoperative for ORIF. Appreciate morning labs. Patient is not on anticoagulation. Stat CT head and CTA head and neck. Patient's care at this point handed over to patient's primary Dr. Hargrove. The high probability of a clinically significant, sudden or life threatening deterioration of the patient's [] system(s) required my full and direct attention, intervention and personal management. The critical care time is as shown. This time is in addition to time spent performing any reported procedures but includes the following: [x] Data and vital sign review and interpretation [x] Patient assessment, examination and intervention [x] Documentation [x] Medication orders and management Critical Care Time Code activated: Yes (Code stroke) Critical Care Time (min): 40 Coding Level of Care Code Critical Care Time Spent (min) 40
--- NOTE | 2025-02-27 14:12 | PC.SOCIAL ---
IMM Updated. Updated IMM. No questions voiced. Provided pt a copy. Initialed, dated, & timed a copy & placed in chart.
--- NOTE | 2025-02-27 14:50 | PC.NURSE ---
Notified Dr. Hargrove that speech therapy had evaluated the patient and recommended that patient remain on a strict NPO diet. Dr. Hargrove stated to Hold all PO meds until further evaluation .
--- NOTE | 2025-02-27 15:05 | P.PNCC_ITS ---
Stroke Alert Activation ED Arrival Date: 02/27/25 ED Arrival Time: 10:50 ED Physican at Bedside: 10:50 Other Last Known Well Infomation: A stroke alert was called at 1049 and I had the larry car operator transferred for me to the floor. I was informed that Dr. Munoz was in the process of evaluating the patient for stroket. I talked with Dr. Rowland who reported that he saw the patient at 8:15 in the morning and he was neurologically intact. A nurse rounded on him at 840. His left hemiparesis was discovered around 1040 and stroke alert was called. After talking with Dr. Rowland who indicated the patient had a significant deficit, I talked with Dr. Arnold who did hip surgery last night. She recommended that if the patient has a significant deficit he should be treated with TNK because the bleeding could be managed. Stroke Alert Activated by: Patient care nurse Stroke Alert Activation Time: 10:49 Stroke MD @ Bedside Time: 10:49 NIH stroke score NIHSS: Level Of Consciousness - 1a: 3 Level Of Consciousness Questions - 1b: Neither Correct Level Of Consciousness Commands - 1c: Neither Correct Best Gaze - 2: Forced Deviation Visual [place] - 3: Complete Hemianopia (To threat) Facial Palsy - 4: Partial Paralysis Motor Arm Right - 5: No Drift Motor Arm Left - 5: No Effort Against [place] Motor Leg Right - 6: No Drift (Spontaneous movement. He does not follow commands well.) Motor Leg Left - 6: No Effort Against [place] (Triple flexion) Limb Ataxia - 7: Absent Sensory - 8: Mild To Moderate Loss Best Language - 9: Mild/Moderate Aphasia (Severe dysarthria, hard to photo cartographer) Dysarthia - 10: Severe Dysarthia Extinction And Inattention - 11: 1 (He does not acknowledge his left arm but he could find it with the right arm to command) Score: Total Score: 24 Stroke Alert Data/Treatment Time to CT of Head: 10:52 CT Results Time: 11:05 CT Impression: Diffuse atrophy, multiple lacunes tPA Started Time: tPA Started - Time: 11:33 Other Information: Patient's son and daughter have been into visit. I did not talk with them. They have indicated that he does not wish to be resuscitated beyond this. Critical Care Time Critical Care Time: 30 - 74 mins A&P Assessment and plan (1) Acute right arterial ischemic stroke, middle cerebral artery (MCA): Unfortunate 89-year-old man who has sustained what appears to be a complete right middle cerebral artery stroke. His CT angiogram was negative for large vessel occlusion. He is in because he fell down at the group home and required hip surgery last night. Considering the very large stroke that he is having, the opportunity to give him thrombolytic therapy was important, since he was last known well by 2 reliable witnesses less than 3 hours ago. He received TNK at 1133, 40 minutes after stroke team activated even with the difficulty of moving him from second floor to CAT scan and onto the ICU. Prognosis is guarded considering the size of his stroke, which on its own carries a 50% mortality. I do not see any reason to scan him again since hemorrhage would not be treatable for him. I think he has been given the best opportunity. PDMP PDMP Reviewed: Not Reviewed Coding Level of Care Code Acute Code for iris Pike Diagnoses Acute right arterial ischemic stroke, middle cerebral artery (MCA) I63.511
--- NOTE | 2025-02-27 18:59 | PC.NURSE ---
Unable to draw Hgb level due to TNKase given and unable to draw from IV. Notified Dr. Hargrove.
[2025-02-27] MEDS: lanolin oint 7 gm 1 APPLIC TOPICAL (20:34)
[2025-02-27] MEDS: OLANZapine 5 mg ODT 2.5 MG PO (20:34)
[2025-02-28] VITALS (36 sets, daily range): BP systolic 105–150; BP diastolic 53–88; PULSE 50–80; RESP 10–30; TEMP 36.7–37.4; O2SAT 92–98
[2025-02-28] MEDS: lactated ringers 1,000 ML 75 ML IV ×2 (00:43→14:06)
[2025-02-28 03:10] LABS: Basophils % 0.2 %; Hematocrit 26.4 % (37-53); Lymphocytes # 0.7 10^3/uL (0.8-4.8); Lymphocytes % 8.1 %; Mean Corpuscular HGB Conc 29.5 g/dL (30-55); Mean Corpuscular Hemoglobin 26.9 pg (27-33); Monocytes # 1.2 10^3/uL (0.2-0.9); Monocytes % 12.9 %; Neutrophils % 77.6 %; Nucleated Red Blood Cells % 0.4 %; Platelet Count 163 10^3/cmm (157-399); Red Cell Distribution Width 17.3 % (12.1-15.1); White Blood Count 9.15 10^3/uL (3.29-11.43)
[2025-02-28 03:31] LABS: Anion Gap 17.6 (5-19); Blood Urea Nitrogen 26 mg/dL (8-23); Calcium 8.6 mg/dL (8.5-10.5); Carbon Dioxide 20 mmol/L (22-29); Chloride 108 mmol/L (98-107); Creatinine Clr Calc Pharmacy 49.1904; Glucose 118 mg/dL (65-115); Osmolality Calculated 300 mOsm/kg (285-295); Potassium 3.6 mmol/L (3.5-5.1); Sodium 142 mmol/L (136-145)
[2025-02-28 03:33] LABS: Chol HDL Ratio 2.96 mg/dL (1.0-5.00); Cholesterol 139 mg/dL (0-200); HDL Cholesterol 47 mg/dL (60-100); LDL Cholesterol Calculated 70 mg/dL (50-129); LDL HDL Ratio 1.49 RATIO (0.00-3.22); Triglycerides 110 mg/dL (0-150)
[2025-02-28 03:50] LABS: Estmated Average Glucose 108; Hemoglobin A1C 5.4 % (4.0-6.0)
[2025-02-28] MEDS: morphine 4 mg/mL SDV 1 mL 2 MG IVP ×2 (10:44→14:23)
[2025-02-28] MEDS: aspirin 300 mg Supp PR (13:05)
--- NOTE | 2025-02-28 14:57 | P.PN_ITS ---
Subjective 2 Subjective: Denies pain or discomfort. Vitals/I&O/Wt Last Vital Signs Temp 99.4 F 02/28/25 12:00 Pulse 65 02/28/25 12:00 Resp 16 02/28/25 14:23 BP 150/79 02/28/25 12:00 Pulse Ox 94 02/28/25 14:23 O2 Del Method Room Air 02/28/25 12:00 O2 Flow Rate 1 02/26/25 20:36 02/27/25 02/28/25 02/28/25 22:59 06:59 14:59 Intake Total 350 / 590 918.75 / 1508.75 1000 / 1000 Balance 350 / 540 918.75 / 1458.75 1000 / 1000 Weight last 48 hrs Weight 65.317 kg Weight 64.002 kg Physical Exam 2 Narrative: Very hard of hearing. But hears when spoken to very loudly. Const: COMMON NORMALS: patient oriented x3 and alert GENERAL APPEARANCE: c ooperative ORIENTATION/CONSCIOUSNESS: Yes awake HENMT: COMMON NORMALS: oropharynx normal Neck/C-Spine: COMMON NORMALS: no JVD Resp: COMMON NORMALS: normal respiratory effort and clear to auscultation bilaterally AUSCULTATION: clear to auscultation bilaterally Cardio: COMMON NORMALS: no JVD, regular rhythm, S1 normal heart sound present, S2 normal heart sound present and No murmurs present (Cardio) RHYTHM: regular rhythm HEART SOUNDS: S1 normal heart sound present and S2 normal heart sound present GI: COMMON NORMALS: Normal to inspection, nondistended, normoactive bowel sounds present, Soft to palpation and non-tender PALPATION: Yes Soft to palpation Extremity: COMMON NORMALS: no joint enlargement and no pedal edema N ARRATIVE EXTREMITY EXAM: Surgical dressing right hip, without bruising, swelling, erythema, or bleeding. OTHER: everted right lower extremity. Tenderness of the right hip. Neuro: COMMON NORMALS: patient oriented x3 and moves all extremities S ENSORIUM/ORIENTATION: Yes alert OTHER: Left-sided facial droop, moderate dysarthria, exam is difficult due to being very hard of hearing. Left upper and lower weakness. Skin: COMMON NORMALS: no rashes or lesions noted GENERAL SKIN EXAM: no rashes or lesions noted Urinary Catheter Management: Buckley: Cath Placed During This Visit: yes, but has since been removed by the nurse Reason for Continuing Indwelling Catheter: Decision to DC Catheter Urinary Catheter Date of Insertion: 02/25/25 Date Urinary Catheter Removed: 02/27/25 Time Urinary Catheter Discontinued: 05:34 Data 02/28/25 02:47 02/28/25 02:47 A&P Assessment and plan (1) Acute CVA (cerebrovascular accident): Without improvement in deficits after TNK. Reviewed vitals, CBC, BMP. Hemoglobin 7.8 with good response to 1 unit RBC transfusion. Reassess blood counts. Discussed with speech therapy, pending reassessment. Reviewed neurology note. CT head canceled. Aspirin changed to suppository due to n.p.o. at this time. Oral medications held. Transfer from ICU back to medical surgical floor. Pending PT and OT assessment. Reached out to his son but could not get a hold of by phone to further discuss condition and goals of care. Reviewed lipid profile, A1c, echocardiogram. Continue to monitor on telemetry, so far without atrial fibrillation. Family reinforced that his CODE STATUS is DNR. (2) Fracture of right hip: Pending PT and OT assessment. Reviewed CBC, hemoglobin 7.8, with appropriate response to 1 unit transfusion. Repeat blood counts requested. Status post ORIF right hip fracture. Continue Buckley in place for now. Has been requiring IV morphine for pain. Will add Lovenox VTE prophylaxis. Monitor risk of bleeding, worsening anemia. Recheck blood counts. Discussed with case management. (3) Syncope: Obtain orthostatics once able to. Permissive hypertension at current time. Reviewed troponin series EKG. Reviewed echocardiogram noted normal ejection fraction, grade 1 diastolic function, trace valvular abnormality. No aortic stenosis. Cause of syncope not entirely explained, possibly orthostasis, will need orthostatics checked once possible. Reviewed chemistry, normal. Renal function unchanged. EKG reviewed, my interpretation does not have atrial fibrillation, with P waves present, with erroneous machine read. Monitor on telemetry for any arrhythmia. Hold off diuretic for now. Reviewed TSH, nl Plan HTN: Permissive hypertension at current time. Hold antihypertensives. HLD GERD: Continue PPI History of pelvic fractures: Without noted disruption of hardware on pelvic x- ray on review. History of pancytopenia: With anemia. Resume iron supplementation once able. Reviewed iron studies. noted iron deficiency anemia and anemia chronic disease. CHeck hemomccult. Hearing loss: Severe hearing loss, but does hear when spoken to loudly. Hypothyroidism: Continue levothyroxine once able to resume Advanced age PDMP PDMP Reviewed: Not Reviewed Attestations 2 Medical Necessity Statement*: Continue admission for assessment management after acute CVA. Diagnoses Acute CVA (cerebrovascular accident) I63.9 Fracture of right hip S72.001A Syncope R55
--- NOTE | 2025-02-28 16:23 | P.PN_ITS ---
Subjective 2 Subjective: Patient was seen this evening, and he was resting. Wound was evaluated, but the patient did not awaken. He has obvious left sided drooping of the mouth and face. Per nursing, he is very frustrated by his limitations. Medications: Reviewed: Yes Vitals/I&O/Wt Last Vital Signs Temp 99.4 F 02/28/25 12:00 Pulse 59 L 02/28/25 14:00 Resp 16 02/28/25 14:23 BP 150/79 02/28/25 12:00 Pulse Ox 94 02/28/25 14:23 O2 Del Method Room Air 02/28/25 12:00 O2 Flow Rate 1 02/26/25 20:36 02/28/25 02/28/25 02/28/25 06:59 14:59 22:59 Intake Total 918.75 / 1508.75 1000 / 1000 Balance 918.75 / 1458.75 1000 / 1000 Weight last 48 hrs Weight 144 lb Weight 141 lb 1.6 oz Physical Exam 2 Const: COMMON NORMALS: no acute distress, average body habitus and alert G ENERAL APPEARANCE: cooperative and comfortable ORIENTATION/CONSCIOUSNESS: Yes awake and Yes Other orientation findings (Somnolent) HENMT: COMMON NORMALS: normocephalic and atraumatic HEAD & SCALP: n ormocephalic and atraumatic Eye: GENERAL EYE: appearance normal, both eyes and all related structures Chest: COMMONS NORMALS: normal inspection of the chest Resp: COMMON NORMALS: normal respiratory effort EFFORT & INSPECTION: Yes able to speak in complete sentences and Yes symmetric chest movement Extremity: RIGHT LOWER EXTREMITY: Yes hip joint (Dressing is dry and intact.) Right hip: Yes inspection (No significant ecchymosis), Yes ROM (Not evaluated) and Yes neurovascular exam (Not evaluated, but no evidence of DVT) Neuro: SENSORIUM/ORIENTATION: Yes alert Psych: COMMON NORMALS: mental status grossly normal APPEARANCE: Yes grossly normal ATTITUDE: Yes calm and Yes engaged ATTENTION/CONCENTRATION: Yes attention grossly intact Skin: COMMON NORMALS: no rashes or lesions noted GENERAL SKIN EXAM: no rashes or lesions noted Urinary Catheter Management: Buckley: Cath Placed During This Visit: yes, but has since been removed by the nurse Reason for Continuing Indwelling Catheter: Decision to DC Catheter Urinary Catheter Date of Insertion: 02/25/25 Date Urinary Catheter Removed: 02/27/25 Time Urinary Catheter Discontinued: 05:34 Data 02/28/25 17:55 02/28/25 02:47 A&P Assessment and plan (1) Closed intertrochanteric fracture of right hip: This 89-year-old gentleman presented after a fall at home onto his right side. X-rays demonstrated a right intertrochanteric hip fracture. After discussion with the patient and family, we have elected to proceed with open reduction internal fixation using a gamma trochanteric nail. Risks and complications are discussed with the patient's family, and consents were signed. [id number], who is the power of volunteer recruiter, gave consent by phone after significant surgical discussion. Questions were answered at that time. On the morning following surgery, a stroke alert was called. This was approximately 8:40 in the morning. He had had caregivers in the room immediately prior with no evidence of issue. Patient was transferred to the intensive care unit. He was given tPA per neurology. Further treatment and plans will be based upon his medical abilities. PDMP PDMP Reviewed: Not Reviewed Attestations 2 Medical Necessity Statement*: Per hospitalist team. Coding Level of Care Code Acute Code for Chg Fwd Diagnoses Closed displaced intertrochanteric fracture of right femur, initial encounter S72.141A Encounter type: initial encounter Fracture alignment: displaced
--- NOTE | 2025-02-28 19:45 | PC.NURSE ---
Dr. Stover contacted about hemoglobin of 7, down from 7.8, orders received for 1 unit of blood and hold lovenox.
[2025-02-28] MEDS: sodium chloride 0.9% 100 mL Bag 50 ML IV (20:35)
[2025-02-28] MEDS: OLANZapine 5 mg ODT 2.5 MG PO (20:35)
[2025-03-01] VITALS (25 sets, daily range): BP systolic 130–174; BP diastolic 65–95; PULSE 50–88; RESP 7–25; O2SAT 91–100
[2025-03-01 01:25] LABS: Hematocrit 28.7 % (37-53)
[2025-03-01] MEDS: lactated ringers 1,000 ML 75 ML IV (05:28)
[2025-03-01 06:04] LABS: Basophils % 0.4 %; Eosinophils # 0.1 10^3/uL (0.0-0.8); Hematocrit 29.5 % (37-53); Lymphocytes # 0.9 10^3/uL (0.8-4.8); Mean Corpuscular HGB Conc 29.8 g/dL (30-55); Mean Corpuscular Hemoglobin 26.9 pg (27-33); Mean Corpuscular Volume 90.2 fl (82-101); Mean Platelet Volume 11.3 fL (7.4-10.4); Monocytes # 0.7 10^3/uL (0.2-0.9); Monocytes % 9.2 %; Neutrophils # 5.97 10^3/uL (1.8-7.7); Neutrophils % 77.2 %; Nucleated Red Blood Cells % 0.3 %; Platelet Count 126 10^3/cmm (157-399); Red Blood Count 3.27 10^6/uL (3.85-5.65); Red Cell Distribution Width 17.2 % (12.1-15.1); White Blood Count 7.73 10^3/uL (3.29-11.43)
[2025-03-01 06:20] LABS: Anion Gap 17.5 (5-19); Blood Urea Nitrogen 28 mg/dL (8-23); Calcium 8.6 mg/dL (8.5-10.5); Carbon Dioxide 21 mmol/L (22-29); Chloride 112 mmol/L (98-107); Creatinine Clr Calc Pharmacy 56.8494; Glucose 98 mg/dL (65-115); Osmolality Calculated 309 mOsm/kg (285-295); Potassium 3.5 mmol/L (3.5-5.1); Sodium 147 mmol/L (136-145)
[2025-03-01] MEDS: aspirin 300 mg Supp PR (08:58)
[2025-03-01] MEDS: morphine 4 mg/mL SDV 1 mL 2 MG IVP (10:18)
[2025-03-01 15:01] LABS: SARS Covid-2 Antigen Negative (Negative)
--- NOTE | 2025-03-01 15:07 | PC.OT ---
Discharge OT services at this time due to patient going on hospice.
--- NOTE | 2025-03-01 15:30 | PM.PN ---
Subjective Subjective: Patient's MRI etc. were reviewed with the family per the hospitalist team. Plans are being made for the patient to be transferred to his nursing facility. It is doubtful he will qualify for shelter. He is still having significant issues with oral intake. Medications: Reviewed: Yes Vitals/I&O/Wt Last Vital Signs Temp 98.3 F 02/28/25 22:59 Pulse 59 L 03/01/25 13:45 Resp 24 H 03/01/25 12:30 BP 165/71 03/01/25 12:30 Pulse Ox 97 03/01/25 12:30 O2 Del Method Room Air 03/01/25 12:30 O2 Flow Rate 1 02/26/25 20:36 03/01/25 03/01/25 03/01/25 06:59 14:59 22:59 Intake Total 770 / 2260 Output Total 300 / 300 Balance 470 / 1960 Weight last 48 hrs Weight 150 lb 8 oz Weight 144 lb Physical Exam Const: COMMON NORMALS: average body habitus GENERAL APPEARANCE: cooperative and comfortable ORIENTATION/CONSCIOUSNESS: Yes awake HENMT: COMMON NORMALS: normocephalic and atraumatic HEAD & SCALP: normocephalic and atraumatic Eye: GENERAL EYE: appearance normal, both eyes and all related structures Chest: COMMONS NORMALS: normal inspection of the chest Resp: COMMON NORMALS: normal respiratory effort EFFORT & INSPECTION: Yes able to speak in complete sentences and Yes symmetric chest movement Extremity: RIGHT LOWER EXTREMITY: Yes hip joint (Dressing is dry and intact. There is minimal to no swelling.) Right hip: Yes inspection (No ecchymosis.), Yes palpation (No pain to palpation thigh or calf.) and Yes neurovascular exam (Able to slightly wiggle his toes.) Psych: COMMON NORMALS: mental status grossly normal APPEARANCE: Yes grossly normal ATTITUDE: Yes calm and Yes engaged ATTENTION/CONCENTRATION: Yes attention grossly intact Skin: COMMON NORMALS: no rashes or lesions noted GENERAL SKIN EXAM: no rashes or lesions noted Urinary Catheter Management: Buckley: Cath Placed During This Visit: yes, but has since been removed by the nurse Reason for Continuing Indwelling Catheter: Decision to DC Catheter Urinary Catheter Date of Insertion: 02/25/25 Date Urinary Catheter Removed: 02/27/25 Time Urinary Catheter Discontinued: 05:34 Data 03/01/25 05:47 03/01/25 05:47 A&P Assessment and plan (1) Closed intertrochanteric fracture of right hip: This 89-year-old gentleman presented after a fall at home onto his right side. X-rays demonstrated a right intertrochanteric hip fracture. After discussion with the patient and family, we have elected to proceed with open reduction internal fixation using a gamma trochanteric nail. Risks and complications are discussed with the patient's family, and consents were signed. [id number], who is the power of real estate associate attorney, gave consent by phone after significant surgical discussion. Questions were answered at that time. On the morning following surgery, a stroke alert was called. MRI was obtained and tPA was administered. The patient continues to have significant dense left-sided weakness. Currently, he is unable to tolerate oral food or water. Hospitalist team discussed with the patient's family his prognosis, and he will be discharged back to his skilled facility with hospice care. Should his situation change, they will be in touch. I will ask him to see me in 2 to 3 weeks if needed or appropriate. PDMP PDMP Reviewed: Not Reviewed Attestations Medical Necessity Statement*: Per hospitalist team. Coding Level of Care Code Acute Code for Chg Fwd Diagnoses Closed displaced intertrochanteric fracture of right femur, initial encounter S72.141A Encounter type: initial encounter Fracture alignment: displaced
--- NOTE | 2025-03-01 15:45 | P.DS_ITS ---
Discharge Providers Date of Admission: 02/25/25 09:40 Date of Discharge: March 01, 2025 Attending Provider at Admission: Johan Hargrove Attending Provider at Discharge: Johan Hargrove Primary Care Provider: Kanu Taylor MD Diagnoses at Discharge Discharge Diagnosis (1) Closed intertrochanteric fracture of right hip: Status: Acute Qualifiers: Encounter type: initial encounter Fracture alignment: displaced Qualified Code(s): S72.141A - Displaced intertrochanteric fracture of right femur, initial encounter for closed fracture Reason for Visit Reason for Visit: fall, cp , head pain Brief History: Gualberto Guzmán is a 89 year old male with a history of HTN, HLD and anemia, prior pelvic fractures presents after being found on the floor, apparently following a fall. The patient does not recall the event but remembers having breakfast and using the bathroom earlier in the day. There is a history of fainting episodes, with the most recent prior episode occurring about a week ago, also while using the bathroom. The patient reports no recent fever, headache, lightheadedness, dizziness, chest pain, abdominal pain, nausea, vomiting, diarrhea, blood in stool or urine, or rashes. Appetite and oral intake are reportedly good. The patient denies any recent changes in medications. The right hip is painful, and the patient expresses significant discomfort. No swelling in the legs is noted. The patient is concerned about pain and is interested in surgical repair to return to previous activity levels, which inc luded walking about eight miles a day. There is no mention of recent infections or other acute symptoms. The patient denies smoking and alcohol use. Hospital Course Hospital Course With recurrent syncopal episodes, head CT was without acute abnormality, troponin EKG series were completed, he was assessed with echocardiogram with concern for possible valvular heart disease with findings of normal ejection fraction, grade 1 diastolic dysfunction, trace MVR, trace TVR, no pericardial effusion, and monitored on telemetry. Troponin with mild elevation without peak without any chest pain or discomfort. Orthostatics planned for when he was able to stand. With noted acute blood loss anemia blood counts were followed up. Due to advanced age and comorbidities risks associated with surgical procedure were considered with him and his family. 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 He did want to try to resume ambulation and and his family pref ers to try to pursue repair and allow him to transfer. He underwent uneventful ORIF with trochanteric nail with minimal blood loss. With worsening of his anemia, with hemoglobin noted down to 6.9 on the following morning and a unit of red blood cells was ordered for him. However, before he could receive the blood he was found with new left-sided facial droop left side upper and loss of power in left upper and lower extremity. Stroke code was called, on consideration of options and multidisciplinary discussion with neurology, orthopedic surgery and family, decision was made to go ahead and treat with thrombolysis and he received TNK. However, his symptoms did not show improvement, with persistence of left-sided weakness and severe dysphagia with all consistencies of food and drink, unable to resume oral intake safely. On revisiting goals of care with family, he would not want a feeding tube or other aggressive supportive measures. Electing rather for pleasure feeds and continued comfort care, he returned to [facility] for continued care. Physical Exam Narrative: Very hard of hearing. But hears when spoken to very loudly. Const: COMMON NORMALS: alert GENERAL APPEARANCE: cooperative ORIENTATION/CONSCIOUSNESS: Yes awake HENMT: COMMON NORMALS: oropharynx normal Neck/C-Spine: COMMON NORMALS: no JVD Resp: COMMON NORMALS: normal respiratory effort and clear to auscultation bilaterally AUSCULTATION: clear to auscultation bilaterally Cardio: COMMON NORMALS: no JVD, regular rhythm, S1 normal heart sound present, S2 normal heart sound present and No murmurs present (Cardio) RHYTHM: regular rhythm HEART SOUNDS: S1 normal heart sound present and S2 normal heart sound present GI: COMMON NORMALS: Normal to inspection, nondistended, normoactive bowel sounds present, Soft to palpation and non-tender PALPATION: Yes Soft to palpation Extremity: COMMON NORMALS: no joint enlargement and no pedal edema NARRATIVE EXTREMITY EXAM: Surgical dressing right hip, without bruising, swelling, erythema, or bleeding. Neuro: SENSORIUM/ORIENTATION: Yes alert OTHER: Left-sided facial droop, moderate dysarthria. Left upper and lower weakness. Skin: COMMON NORMALS: no rashes or lesions noted GENERAL SKIN EXAM: no rashes or lesions noted Urinary Catheter Management: Buckley: Cath Placed During This Visit: yes, but has since been removed by the nurse Reason for Continuing Indwelling Catheter: Decision to DC Catheter Urinary Catheter Date of Insertion: 02/25/25 Date Urinary Catheter Removed: 02/27/25 Time Urinary Catheter Discontinued: 05:34 Discharge Data Studies Completed and Pending Completed Studies During Hospitalization Category Date Time Status CT angio headneck* [id number] Stat Cat Scan 02/27/25 11:[address] cervical spin wo con* [id number] Stat Cat Scan 02/25/25 08:[address] head thrombolytic [id number] Routine Cat Scan 02/27/25 10:[address] head wo con* [id number] Stat Cat Scan 02/25/25 08:15 Completed XR chest 1V portable [id number] Stat Exams 02/25/25 08:14 Completed XR hip RT 2-3V wo/w pel* [id number] Routine Exams 02/26/25 18:22 Completed XR hip RT 2-3V wo/w pel* [id number] Stat Exams 02/25/25 09:13 Completed CV. echo complete* [id number] Urgent Ultrasound 02/25/25 13:39 Completed CV. echo lmt wo/w bubble [id number] Routine Ultrasound 02/27/25 11:40 Completed Pending at discharge Category Date Time Status Occult Blood Stool [Immunochemical Fecal OCB] Routine Lab 02/25/25 14:56 Uncollected Radiology Impressions Cervical Spine CT 02/25/25 08:14 IMPRESSION: No evidence for acute cervical fracture. Chest X-Ray 02/25/25 08:14 IMPRESSION: No acute cardiopulmonary disease. Hip/Pelvis X-Ray 02/26/25 18:22 Impression: Internal fixation of right intertrochanteric hip fracture. Head CT 02/27/25 10:52 IMPRESSION: 1. No acute intracranial hemorrhage or edema. 2. Advanced atrophy and small vessel disease. 3. No skull fracture. 4. Severe atherosclerotic calcification throughout the mak[place] of [place]. Notified Johan Hargrove MD at 02/27/2025 11:10 AM. Head/Neck CTA 02/27/25 11:14 IMPRESSION: 1. 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 2. Extensive calcification within the LEFT ICA but stenosis less than 50%. 3. Diffusely very small caliber RIGHT vertebral artery intermittently visualized due to plaque and atherosclerotic disease. 4. High-grade stenosis distal basilar artery. 5. Dense calcified plaque in the intracranial LEFT carotid artery. 6. Atherosclerotic plaque with high-grade stenosis in the M1 segments. Small caliber distal M2 segments due to limited flow. 7. Small bilateral posterior cerebral arteries. 8. Occluded or hypoplastic RIGHT A1 segment. Laboratory Results WBC 7.73 10^3/uL (3.29-11.43) 03/01/25 05:47 RBC 3.27 10^6/uL (3.85-5.65) L 03/01/25 05:47 Hgb 8.80 g/dL (11.27-16.99) L 03/01/25 05:47 Hct 29.5 % (37-53) L 03/01/25 05:47 MCV 90.2 fl (82-101) 03/01/25 05:47 MCH 26.9 pg (27-33) L 03/01/25 05:47 MCHC 29.8 g/dL (30-55) L 03/01/25 05:47 RDW 17.2 % (12.1-15.1) H 03/01/25 05:47 Plt Count 126 10^3/cmm (157-399) L 03/01/25 05:47 MPV 11.3 fL (7.4-10.4) H 03/01/25 05:47 Neut % (Auto) 77.2 % 03/01/25 05:47 Lymph % (Auto) 11.0 % 03/01/25 05:47 Nye % (Auto) 9.2 % 03/01/25 05:47 Eos % (Auto) 1.0 % 03/01/25 05:47 Baso % (Auto) 0.4 % 03/01/25 05:47 Neut # (Auto) 5.97 10^3/uL (1.8-7.7) 03/01/25 05:47 Lymph # (Auto) 0.9 10^3/uL (0.8-4.8) 03/01/25 05:47 Nye # (Auto) 0.7 10^3/uL (0.2-0.9) 03/01/25 05:47 Eos # (Auto) 0.1 10^3/uL (0.0-0.8) 03/01/25 05:47 Baso # (Auto) 0.0 10^3/uL (0.0-0.1) 03/01/25 05:47 Nucleated RBC % (auto) 0.3 % 03/01/25 05:47 Nucleated RBCs # 0.0 /100WBC 03/01/25 05:47 Sodium 147 mmol/L (136-145) H 03/01/25 05:47 Potassium 3.5 mmol/L (3.5-5.1) 03/01/25 05:47 Chloride 112 mmol/L (98-107) H 03/01/25 05:47 Carbon Dioxide 21 mmol/L (22-29) L 03/01/25 05:47 Anion Gap 17.5 (5-19) 03/01/25 05:47 BUN 28 mg/dL (8-23) H 03/01/25 05:47 Creatinine 0.7 mg/dL (0.7-1.2) 03/01/25 05:47 GFR Calculation Not Reportable 03/01/25 05:47 Glucose 98 mg/dL (65-115) 03/01/25 05:47 POC Glucose 149 mg/dL (70-110) H 02/27/25 10:48 Estimat Average Glucose 108 02/28/25 02:47 Hemoglobin A1c 5.4 % (4.0-6.0) 02/28/25 02:47 Calculated Osmolality 309 mOsm/kg (285-295) H 03/01/25 05:47 Calcium 8.6 mg/dL (8.5-10.5) 03/01/25 05:47 Iron 27 ug/dL (59-158) L 02/25/25 10:22 TIBC 354 mcg/dl 02/25/25 10:22 % Saturation 7.6 % (20-50) L 02/25/25 10:22 Unsat Iron Binding 327 ug/dL (112-347) 02/25/25 10:22 Ferritin 26 ng/mL (30-400) L 02/25/25 10:22 Total Bilirubin 0.4 mg/dL (0.15-1.2) 02/25/25 07:45 AST 25 U/L (0-40) 02/25/25 07:45 ALT 16 U/L (0-41) 02/25/25 07:45 Alkaline Phosphatase 79 U/L (40-130) 02/25/25 07:45 Troponin T Baseline 28 ng/L (0-15) H 02/25/25 07:45 Troponin T 120 Minute 22.57 ng/L (0-15) H 02/25/25 10:22 Delta Troponin T -5.43 ABS# (0-10) L 02/25/25 10:22 Troponin T Hi Sens 6Hr 21.38 ng/L (0-15) H 02/25/25 13:45 Troponin T Hi Sens 6Hr Delta -6.62 ng/L (0-12) L 02/25/25 13:45 Total Protein 7.4 g/dL (6.6-8.7) 02/25/25 07:45 Albumin 4.3 g/dL (3.5-5.2) 02/25/25 07:45 Globulin 3.1 g/dL (1.3-4.6) 02/25/25 07:45 Triglycerides 110 mg/dL (0-150) 02/28/25 02:47 Cholesterol 139 mg/dL (0-200) 02/28/25 02:47 LDL Cholesterol, Calc 70 mg/dL (50-129) 02/28/25 02:47 HDL Cholesterol 47 mg/dL (60-100) L 02/28/25 02:47 LDL/HDL Ratio 1.49 RATIO (0.00-3.22) 02/28/25 02:47 Cholesterol/HDL Ratio 2.96 mg/dL (1.0-5.00) 02/28/25 02:47 TSH 4.02 uIU/mL (0.27-4.20) 02/25/25 07:45 Urine Color Yellow (Yellow) 02/25/25 10:14 Urine Appearance Clear (CLEAR) 02/25/25 10:14 Urine pH 6.5 (5-7) 02/25/25 10:14 Ur Specific Rogers 1.013 (1.005-1.030) 02/25/25 10:14 Urine Protein Trace (Negative) A 02/25/25 10:14 Urine Glucose (UA) Negative (Normal) 02/25/25 10:14 Urine Ketones Negative (Negative) 02/25/25 10:14 Urine Blood Negative (Negative) 02/25/25 10:14 Urine Nitrate Negative (Negative) 02/25/25 10:14 Urine Bilirubin Negative (Negative) 02/25/25 10:14 Urine Urobilinogen 0.2 mg/dL (Negative) 02/25/25 10:14 Ur Leukocyte Esterase Negative (Negative) 02/25/25 10:14 Urine RBC 0-2 /hpf (0-2) 02/25/25 10:14 Urine WBC 0-5 /hpf (0-5) 02/25/25 10:14 Ur Squamous Epith Cells 0-5 /hpf (0-5) 02/25/25 10:14 Amorphous Sediment Not Reportable 02/25/25 10:14 Urine Bacteria None seen /hpf (NONE) 02/25/25 10:14 Hyaline Casts 0.40 /lpf 02/25/25 10:14 SARS-CoV-2 Ag (Rapid) Negative (Negative) 03/01/25 14:35 Blood Type A Negative 02/26/25 12:17 Rho(D) Type Rh negative 02/26/25 12:17 Antibody Screen Negative 02/26/25 12:17 Crossmatch See Detail 02/26/25 12:17 Vitals Last Vital Signs Temp 98.3 F 02/28/25 22:59 Pulse 59 L 03/01/25 13:45 Resp 24 H 03/01/25 12:30 BP 165/71 03/01/25 12:30 Pulse Ox 97 03/01/25 12:30 O2 Del Method Room Air 03/01/25 12:30 O2 Flow Rate 1 02/26/25 20:36 Discharge Plan Discharge Patient Disposition: Hospice - Medical Facility Condition: Serious Prescriptions: New lorazepam [Lorazepam Intensol] 2 mg/mL concentrate 1 mg PO Q6H PRN (Reason: anxiety) Qty: 30 0RF atropine 0.4 mg/mL solution 0.4 mg PO Q4H PRN (Reason: secretions) Qty: 200 0RF morphine concentrate 20 mg/mL syringe 10 mg sublingual Q4H PRN (Reason: pain or dyspnea) Qty: 50 0RF Continued bisacodyl [Dulcolax (bisacodyl)] 10 mg Suppository 10 mg WA DAILY PRN (Reason: Constipation) Fleet Enema 19-7 gram/118 mL Enema 118 ml WA DAILY PRN (Reason: Constipation) Biofreeze (menthol) 4 % Gel 1 applic TOPICAL QID PRN (Reason: muscle screnoss) Discontinued fluoxetine 10 mg capsule 10 mg PO DAILY folic acid 1 mg tablet 1 mg PO DAILY mecobalamin (vitamin B12) 1,000 mcg tablet,chewable 1,000 mcg PO DAILY cholecalciferol (vitamin D3) 25 mcg (1,000 unit) capsule 25 mcg PO DAILY Protonix 40 mg tablet,delayed release (DR/EC) 40 mg PO DAILY acetaminophen [Tylenol] 325 mg Tablet 325 mg PO QID PRN (Reason: Fever Or Pain) levothyroxine 75 mcg tablet See Rx Instructions .ROUTE .COMPLEX Rx Instructions: Take 1 Tablet (75 mcg )by mouth on Tuesday and Fridays. magnesium hydroxide [Milk of Magnesia] 400 mg/5 mL Suspension 30 ml PO DAILY PRN (Reason: Constipation) lisinopril 10 mg tablet 10 mg PO DAILY Senna Laxative 25 mg Tablet 25 mg PO DAILY PreserVision AREDS 2 Plus MV 200 mcg-15 mcg- 5 mg-1 mg Capsule 1 cap PO BID levothyroxine 50 mcg tablet See Rx Instructions .ROUTE .COMPLEX Rx Instructions: Take 50mcg by mouth on Tuesday , Tuesday , , Tuesday and Tuesday . Discharge Orders: Discharge Order (Routine); Ordered 03/01/25 Ordered By: Johan Hargrove Referrals: Alee Arnold MD [Physician, Orthopedics] - 3 weeks Kanu Taylor MD [Primary Care Provider, [facility]] Referral Note: [facility] will arrange for appointments and schedules Patient Instructions: Lorazepam (By mouth) (Ativan, Lorazepam Intensol, Loreev XR), Morphine, Slow Release (By mouth), Hospice Care (GEN), How to Give Mouth Care (DC), Acute Wound Care (DC), ORIF of Hip Fracture (DC), Opioid Safety Activity Restrictions/Additional Instructions: Underlying dysphagia. Pleasure feeds as tolerated. continue bedside hospice level care and reposition to prevent pressure ulcers. Follow up with primary provider as needed. Weightbearing as tolerated. Remove dressing in 2 weeks. Ok to shower. Discharge Attestations Time Spent in Discharge Care*: greater than 30 min Quality Metrics Clinical Quality Measures [ Cerebrovascular Accident { Contraindication to Antithrombotic: Other (Comfort care); Contraindication to Anticoagulation: Overlap treatment not indicated; Contraindication to Statin: Other (Comfort care);}] Coding Level of Care Code 01314 Total time (in minutes) for Discharge: 50 Diagnoses Closed displaced intertrochanteric fracture of right femur, initial encounter S72.141A Encounter type: initial encounter Fracture alignment: displaced
--- NOTE | 2025-03-01 15:55 | PC.NURSE ---
Report was called to Maru in [facility]. [phone].
--- NOTE | 2025-03-01 15:56 | PC.SOCIAL ---
IMM updated IMM dated and initialed copy given to patient and Copy placed in chart.
--- NOTE | 2025-03-01 17:13 | PC.NURSE ---
Report was called to Jaylon in [address] [place] [address]. [phone]
--- NOTE | 2025-03-01 17:14 | PC.NURSE ---
Patient was picked up by Lamine Garcia. Patient's IV was discontinued and all belongings were sent with the patient. Patient was stable during transfer.
== END 2025-03-01 17:16 | disposition hospice, home (50) | DRG 480 ==
LOC: ER 09:38 → MEDSURG 10:46 → ICU 02-27 11:50
PROVIDERS: Internal Medicine; Specialist; Admitting Provider Internal Medicine; Emergency Provider Family Medicine; PCP Family Medicine; Visit Provider Internal Medicine
PROC: 0QS636Z Reposition Right Upper Femur with Intramedullary Internal Fixation Device, Percutaneous Approach (ICD-10-PCS; CPT 27245; principal; 2025-02-26 16:45)
DX: S72.141A Displaced intertrochanteric fracture of right femur, initial encounter for closed fracture (principal); I63.511 Cerebral infarction due to unspecified occlusion or stenosis of right middle cerebral artery; D62 Acute posthemorrhagic anemia; G81.94 Hemiplegia, unspecified affecting left nondominant side; D61.818 Other pancytopenia; W01.10XA Fall on same level from slipping, tripping and stumbling with subsequent striking against unspecified object, initial encounter; Y92.129 Unspecified place in nursing home as the place of occurrence of the external cause; S09.90XA Unspecified injury of head, initial encounter; I10 Essential (primary) hypertension; E78.5 Hyperlipidemia, unspecified; D64.9 Anemia, unspecified; R55 Syncope and collapse; R29.810 Facial weakness; R13.10 Dysphagia, unspecified; R47.1 Dysarthria and anarthria; R29.713 NIHSS score 13; Z51.5 Encounter for palliative care; H91.90 Unspecified hearing loss, unspecified ear; Z66 Do not resuscitate; E03.9 Hypothyroidism, unspecified; K21.9 Gastro-esophageal reflux disease without esophagitis
CPT/HCPCS: 36415; 36416; 36430; 51702; 70450; 70496; 70498; 71045; 72125; 73502; 76000; 80048; 80053; 80061; 81001; 82728; 82962; 83036; 83540; 83550; 84443; 84484; 85014; 85018; 85025; 86850; 86900; 86920; 87426; 92507; 92523; 92526; 92610; 93005; 93306; 96372; 96374; 96376; 97110; 97163; 97167; 97530; 99285; C1713; C8924; J0131; J0360; J0690; J1100; J1171; J1644; J2270; J2405; J2704; J2795; J3010; J3101; J7030; J7120; J9999; P9016